=== PATIENT | male | born 1930 | race Caucasian/White ===

== ENCOUNTER 2016-12-23 12:07 | Inpatient (IN) ==
--- NOTE | 2016-12-23 12:23 | Emergency Department Note ---
Disposition Clinical Impression: Chest pain, Frail elderly, Abnormal EKG, Diabetes mellitus, Hyperlipidemia, Elevated troponin, History of atrial fibrillation, Elevated INR, Elevated blood pressure reading Disposition: Admitted As Inpatient Referrals: Garcia Herrera MD [Primary Care Provider] - General Adult HPI - General Stated complaint: chest pain Time Seen by Provider: 12/23/16 12:23 Source: patient Limitations: no limitations - History of Present Illness HPI Narrative: 86-year-old male reports to the emergency department complaining of chest pain. The pain started 2 weeks ago. The pain has been intermittent. The patient dates today he went outside to repair mechanical item and developed chest pain while exerting himself. This happened twice. There is no history of trauma. No shortness of breath. No coughing of blood leg swelling or pain. No syncope. No abdominal pain vomiting or diarrhea. No troubles walking talking hearing seeing or speaking. No confusion. No slurred speech or unilateral arm weakness or numbness. No rashes fevers or sore throat or runny nose. The patient is diabetic, he is not sure what his blood sugar levels have been. There is no history of bleeding or fall or injury. No palpitations or fast heart rate. There is no history of acute back pain or tearing back pain. There is no history of pain when breathing in and out. The pain is not associated with movement. There is no history of radiating pain to the left neck or jaw. No coldness blueness numbness or weakness in the arms or legs reported. The patient states that he takes blood thinners of some kind he is not quite sure what type. The patient went to the urgent care today, they sent him in for further evaluation. Reportedly the patient has a history of atrial fibrillation. Pain Scale: 0 - Related Data Home Medications Medication Instructions Recorded Confirmed Amiodarone 06/08/15 06/08/15 Clopidogrel Bisulfate 06/08/15 06/08/15 Finasteride 06/08/15 06/08/15 Gabapentin 06/08/15 06/08/15 Lisinopril 06/08/15 06/08/15 Metaproterenol Sulfate 06/08/15 06/08/15 Metformin 06/08/15 06/08/15 Simvastatin 06/08/15 06/08/15 TraMADol 06/08/15 06/08/15 Previous Rx's Medication Instructions Recorded Phenazopyridine [Pyridium] 100 mg PO TID #10 tablet 11/08/16 Sulfamethoxazole/Trimeth DS 1 each PO BID #20 tablet 11/08/16 [Bactrim DS] Allergies Allergy/AdvReac Type Severity Reaction Status Date / Time aspirin [ASA] Allergy Difficulty Verified 06/08/15 13:53 Breathing Penicillins [PCN] Allergy Difficulty Verified 06/08/15 13:53 Breathing All systems ED: reviewed and negative except as stated. Past Medical History - Past Medical History Medical history: Reports: cardiomyopathy, diabetes, hyperlipidemia, thyroid disease Psychiatric history: Reports: no psych history - Social History Smoking Status: Former smoker Smokeless Tobacco Status: No Alcohol use: Reports: none Drug use: Reports: none Physical Exam - General Limitations: no limitations General appearance: alert, in no apparent distress - Head Head exam: atraumatic, normocephalic, normal inspection - Eye Eye exam: Present: normal appearance, PERRL, EOMI - ENT ENT exam: normal exam, normal oropharynx, mucous membranes moist - Neck Neck exam: Present: normal inspection, full ROM, trachea midline. Absent: tenderness - Chest Chest inspection: Present: symmetric chest wall rise. Absent: tenderness - Respiratory Respiratory exam: Present: normal lung sounds bilaterally. Absent: respiratory distress, accessory muscle use, prolonged expiratory phase - Cardiovascular Cardiovascular exam: Present: regular rate, normal rhythm, normal heart sounds - Abdominal Exam Abdominal exam: Present: soft, Non-Tender, normal bowel sounds. Absent: tenderness, distention, guarding, rebound, rigidity, pulsatile mass - Extremities Exam Extremities exam: Present: normal inspection, full ROM, normal capillary refill. Absent: tenderness, pedal edema, joint swelling, calf tenderness - Expanded Lower Extremity Exam Lower leg exam: Absent: Homans' sign Neurovascular/Tendon exam: Present: normal capillary refill. Absent: pulse deficit, motor deficit, sensory deficit, tendon deficit, extremity cold to touch , pallor - Back Exam Back exam: Present: normal inspection, full ROM. Absent: tenderness, CVA tenderness (R), CVA tenderness (L), vertebral tenderness - Neurological Exam Neurological exam: Present: alert, oriented X3, CN II-XII intact. Absent: motor sensory deficit - Psychiatric Psychiatric exam: Present: normal affect, normal mood - Skin Skin exam: Present: warm, dry, intact, normal color. Absent: rash, cyanosis, diaphoresis, erythema, pallor, mottled Course Vital Signs Temperature 97.3 F L 12/23/16 12:18 Pulse Rate 65 12/23/16 12:18 Respiratory Rate 16 12/23/16 12:18 Blood Pressure 179/79 12/23/16 12:18 O2 Sat by Pulse Oximetry 99 12/23/16 12:18 Temperature 97.3 F L 12/23/16 12:18 Pulse Rate 68 12/23/16 14:21 Respiratory Rate 16 12/23/16 14:21 Blood Pressure 188/97 12/23/16 14:21 O2 Sat by Pulse Oximetry 97 12/23/16 14:21 Oxygen Delivery Oxygen Delivery Room Air Medical Decision Making - MDM Narrative Medical decision making narrative: The patient is allergic to aspirin, he does take clopidogrel. He has refused aspirin therapy. The patient reportedly has a history of atrial fibrillation, his EKG does not show significant dysrhythmia but is abnormal. The patient is elderly, has a history of diabetes, he is hypertensive, diabetic, and is reporting chest pain, and has not elevated troponin. Based on his risk factors for acute coronary syndrome in association with symptomatology and abnormal testing, I thought it be appropriate to admit the patient to the hospitalist for further evaluation. The patient is currently stable. I reviewed with the hospitalist on-call who is accepted the patient to their care. - Lab Data Result diagrams: 12/23/16 12:57 12/23/16 12:57 Lab Results 12/23/16 12/23/16 12/23/16 Range/Units 12:57 12:57 12:57 WBC (4.3-11.1) K/mcL RBC (4.19-5.50) M/mcL Hgb (12.9-16.9) g/dL Hct (37.5-50.1) % MCV (83.0-100.0) fL MCH (28.0-33.3) pg MCHC (31.6-35.5) g/dL RDW (11.5-14.5) % Plt Count (140-400) K/mcL MPV (9.4-12.4) fL Immature Gran % (0-4) % Seg Neutrophils % % Lymphocytes % % Monocytes % % Eosinophils % % Basophils % % Neutrophils # (1.6-8.9) K/mcL Lymphocytes # (0.6-4.6) K/mcL Monocytes # (0.0-1.3) K/mcL Eosinophils # (0.0-0.6) K/mcL Basophils # (0.0-0.2) K/mcL PT 16.3 H (9.4-12.1) Seconds INR 1.5 APTT 34.9 (26.0-36.0) Seconds Sodium (136-145) mEq/L Potassium (3.5-4.5) mEq/L Chloride (98-109) mEq/L Carbon Dioxide (19-29) mEq/L BUN (8-26) mg/dL Creatinine (0.72-1.25) mg/dL Est GFR ( Amer) (> 60) Est GFR (Non-Af Amer) (> 60) BUN/Creatinine Ratio (6-26) Glucose (70-99) mg/dL Calculated Osmolality (280-300) Lactic Acid 1.2 (0.5-2.2) mmol/L Calcium (8.6-10.8) mg/dL Total Bilirubin 0.5 (0.2-1.2) mg/dL Direct Bilirubin 0.2 (0.0-0.5) mg/dL Indirect Bilirubin 0.3 (0.0-1.2) mg/dL AST 14 (5-34) Units/L ALT 11 (0-55) Units/L Alkaline Phosphatase 88 (38-126) Units/L Troponin I (0-0.03) ng/mL C-Reactive Protein 1 (Less than 5) mg/L B-Natriuretic Peptide (0-100) pg/mL Serum Total Protein 7.0 (6.0-8.3) g/dL Albumin 3.6 (3.5-5.0) g/dL Globulin 3.4 (2.4-3.5) g/dL Albumin/Globulin Ratio 1.1 (1.1-2.2) Lipase 37 (8-78) Units/L 12/23/16 12/23/16 12/23/16 Range/Units 12:57 12:57 12:57 WBC 6.3 (4.3-11.1) K/mcL RBC 4.58 (4.19-5.50) M/mcL Hgb 13.6 (12.9-16.9) g/dL Hct 39.9 (37.5-50.1) % MCV 87.1 (83.0-100.0) fL MCH 29.7 (28.0-33.3) pg MCHC 34.1 (31.6-35.5) g/dL RDW 13.7 (11.5-14.5) % Plt Count 148 (140-400) K/mcL MPV 10.4 (9.4-12.4) fL Immature Gran % 0.2 (0-4) % Seg Neutrophils % 62.9 % Lymphocytes % 28.6 % Monocytes % 5.7 % Eosinophils % 2.1 % Basophils % 0.5 % Neutrophils # 4.0 (1.6-8.9) K/mcL Lymphocytes # 1.8 (0.6-4.6) K/mcL Monocytes # 0.4 (0.0-1.3) K/mcL Eosinophils # 0.1 (0.0-0.6) K/mcL Basophils # 0.0 (0.0-0.2) K/mcL PT (9.4-12.1) Seconds INR APTT (26.0-36.0) Seconds Sodium 143 (136-145) mEq/L Potassium 4.0 (3.5-4.5) mEq/L Chloride 109 (98-109) mEq/L Carbon Dioxide 26 (19-29) mEq/L BUN 18 (8-26) mg/dL Creatinine 0.85 (0.72-1.25) mg/dL Est GFR ( Amer) > 60 (> 60) Est GFR (Non-Af Amer) > 60 (> 60) BUN/Creatinine Ratio 21 (6-26) Glucose 116 H (70-99) mg/dL Calculated Osmolality 299 (280-300) Lactic Acid (0.5-2.2) mmol/L Calcium 9.9 (8.6-10.8) mg/dL Total Bilirubin (0.2-1.2) mg/dL Direct Bilirubin (0.0-0.5) mg/dL Indirect Bilirubin (0.0-1.2) mg/dL AST (5-34) Units/L ALT (0-55) Units/L Alkaline Phosphatase (38-126) Units/L Troponin I (0-0.03) ng/mL C-Reactive Protein (Less than 5) mg/L B-Natriuretic Peptide 190 H (0-100) pg/mL Serum Total Protein (6.0-8.3) g/dL Albumin (3.5-5.0) g/dL Globulin (2.4-3.5) g/dL Albumin/Globulin Ratio (1.1-2.2) Lipase (8-78) Units/L 12/23/16 Range/Units 12:57 WBC (4.3-11.1) K/mcL RBC (4.19-5.50) M/mcL Hgb (12.9-16.9) g/dL Hct (37.5-50.1) % MCV (83.0-100.0) fL MCH (28.0-33.3) pg MCHC (31.6-35.5) g/dL RDW (11.5-14.5) % Plt Count (140-400) K/mcL MPV (9.4-12.4) fL Immature Gran % (0-4) % Seg Neutrophils % % Lymphocytes % % Monocytes % % Eosinophils % % Basophils % % Neutrophils # (1.6-8.9) K/mcL Lymphocytes # (0.6-4.6) K/mcL Monocytes # (0.0-1.3) K/mcL Eosinophils # (0.0-0.6) K/mcL Basophils # (0.0-0.2) K/mcL PT (9.4-12.1) Seconds INR APTT (26.0-36.0) Seconds Sodium (136-145) mEq/L Potassium (3.5-4.5) mEq/L Chloride (98-109) mEq/L Carbon Dioxide (19-29) mEq/L BUN (8-26) mg/dL Creatinine (0.72-1.25) mg/dL Est GFR ( Amer) (> 60) Est GFR (Non-Af Amer) (> 60) BUN/Creatinine Ratio (6-26) Glucose (70-99) mg/dL Calculated Osmolality (280-300) Lactic Acid (0.5-2.2) mmol/L Calcium (8.6-10.8) mg/dL Total Bilirubin (0.2-1.2) mg/dL Direct Bilirubin (0.0-0.5) mg/dL Indirect Bilirubin (0.0-1.2) mg/dL AST (5-34) Units/L ALT (0-55) Units/L Alkaline Phosphatase (38-126) Units/L Troponin I 0.06 H* (0-0.03) ng/mL C-Reactive Protein (Less than 5) mg/L B-Natriuretic Peptide (0-100) pg/mL Serum Total Protein (6.0-8.3) g/dL Albumin (3.5-5.0) g/dL Globulin (2.4-3.5) g/dL Albumin/Globulin Ratio (1.1-2.2) Lipase (8-78) Units/L
[2016-12-23 13:05] LABS: Basophils % 0.5 %; Eosinophils # 0.1 K/mcL (0.0-0.6); Eosinophils % 2.1 %; Hematocrit 39.9 % (37.5-50.1); Hemoglobin 13.6 g/dL (12.9-16.9); Immature Granulocytes % 0.2 % (0-4); Lymphocytes # 1.8 K/mcL (0.6-4.6); Lymphocytes % 28.6 %; Mean Corpuscular HGB Conc 34.1 g/dL (31.6-35.5); Mean Corpuscular Hemoglobin 29.7 pg (28.0-33.3); Mean Corpuscular Volume 87.1 fL (83.0-100.0); Mean Platelet Volume 10.4 fL (9.4-12.4); Monocytes # 0.4 K/mcL (0.0-1.3); Monocytes % 5.7 %; Platelet Count 148 K/mcL (140-400); Red Blood Count 4.58 M/mcL (4.19-5.50); Red Cell Distribution Width 13.7 % (11.5-14.5); Segmented Neutrophils % 62.9 %
[2016-12-23 13:11] LABS: INR 1.5; Prothrombin Time 16.3 Seconds (9.4-12.1)
[2016-12-23 13:14] LABS: Activated Partial Thrombo Time 34.9 Seconds (26.0-36.0)
[2016-12-23 13:19] LABS: BUN/Creatinine Ratio 21 (6-26); Blood Urea Nitrogen 18 mg/dL (8-26); Calcium 9.9 mg/dL (8.6-10.8); Carbon Dioxide 26 mEq/L (19-29); Chloride 109 mEq/L (98-109); Glucose 116 mg/dL (70-99); Osmolality,Calculated 299 (280-300); Sodium 143 mEq/L (136-145); eGFR For African Americans > 60 (> 60); eGFR For Non-African Americans > 60 (> 60)
[2016-12-23 13:21] LABS: Albumin 3.6 g/dL (3.5-5.0); Albumin/Globulin Ratio 1.1 (1.1-2.2); Bilirubin,Direct 0.2 mg/dL (0.0-0.5); Bilirubin,Indirect 0.3 mg/dL (0.0-1.2); Bilirubin,Total 0.5 mg/dL (0.2-1.2); Globulin 3.4 g/dL (2.4-3.5)
[2016-12-23] MEDS ORDERED: Heparin 25,000 UNIT/500 ML D5W 25,000 UNIT/500 ML MLS IVC SCH (15:45)
[2016-12-23] MEDS ORDERED: Nitroglycerin 25 MG/250 ML INFUS..BTL IVC SCH (15:45)
--- NOTE | 2016-12-23 16:04 | Event Note ---
Date of Encounter: 12/23/16 Time of Encounter: 16:00 Patient seen and examined with nurse practitioner. Patient presents with anginal chest pain which she has been having signed 2 weeks ago but started according rest and waking him up from sleep. Troponin 0.06. Etiology NSTEMI type I versus hypertensive emergency. His systolic blood pressure since arrival to the ER was 180 mmHg. Start nitro drip. Start heparin drip once SBP is < 170 mmH. No heparin bolus because he takes eloquis for paroxysmal AFib. Serial troponin. Cardiology consultation.
[2016-12-23] MEDS ORDERED: Naloxone 0.4 MG/ML INJ IVP PRN (16:24)
[2016-12-23] MEDS ORDERED: *HR* HYDROcodone/Acet 5/325 mg TABLET PO PRN (16:24)
[2016-12-23] MEDS ORDERED: Ondansetron ODT 4 MG TAB.RAPDIS SL PRN (16:24)
[2016-12-23] MEDS ORDERED: Acetaminophen 325 MG TABLET PO PRN (16:24)
[2016-12-23] MEDS ORDERED: Dextrose Gel 15 GM PO PRN ×2 (16:43)
[2016-12-23] MEDS ORDERED: D5% in Water 1,000 ML IVC PRN (16:43)
[2016-12-23] MEDS ORDERED: *HR* Dextrose 50 % in Water (Syg) 50 ML SYRINGE IVP PRN (16:43)
[2016-12-23 18:23] LABS: Hemoglobin A1C 5.4 %
--- NOTE | 2016-12-23 20:01 | Internal Med History&Physical ---
Date of Encounter: 12/24/16 (Initial encounter) Time of Encounter: 15:30 Assessment and Plan (1) Chest pain Current visit: Yes Status: Acute Assess: Patient presents with chest pain that he states began two weeks ago and became progressively worse. He describes pain as centralized pressure in chest that radiates to left arm. Patient reports nitroglycerin usually helps at alleviate the pain. Plan: Trend troponins Continuous cardiac monitoring Continue Plavix Hold Eliquis IV heparin ordered IV nitroglycerin ordered Repeat EKGs ordered Cardiology consult ordered ECHO ordered O2 2L via nasal cannula ordered, titrated if SpO2 <92% SpO2 monitoring Monitor vital signs Torres catheter placement to relieve urinary retention and anxiety Qualifiers: Chest pain type: unspecified Qualified Code(s): R07.9 - Chest pain, unspecified (2) Abnormal EKG Current visit: Yes Status: Acute Assess: Patient has history of abnormal EKGs. Plan: Repeat EKGs ordered Continuous cardiac monitoring ordered Continue Plavix Hold Eliquis IV heparin ordered IV nitroglycerin ordered Cardiology consult ordered ECHO ordered O2 2L via nasal cannula ordered, titrated if SpO2 <92% SpO2 monitoring Monitor vital signs (3) Elevated troponin Current visit: Yes Status: Acute Assess: Patient presents with elevated troponins related to current chief complaint of chest pain. Plan: Trend troponins Continuous cardiac monitoring ordered Repeat EKGs ordered Monitor vital signs, including SpO2 Monitor patient for continued chest pain (4) Elevated blood pressure reading Current visit: Yes Status: Acute Assess: Patient presents with history of chronic hypertension. Plan: Lopressor ordered Continue Plavix Continue Simvastatin Continue Amiodarone Monitor vital signs Up with assist ordered due to dizziness and instability (5) History of atrial fibrillation Current visit: Yes Status: Chronic Assess: Patient presents with history of abnormal EKGs and history of atrial fibrillation. Current chief complain is chest pain with exertion. Plan: Continuous cardiac monitoring Continue Plavix Hold Eliquis IV heparin ordered IV nitroglycerin ordered Repeat EKGs ordered Cardiology consult ordered ECHO ordered O2 2L via nasal cannula ordered, titrated if SpO2 <92% SpO2 monitoring Monitor vital signs Trend troponins due to elevation early in admission (6) Diabetes mellitus Current visit: Yes Status: Chronic Assess: Patient presents with history of DM. 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 Plan: Continue Simvastatin Lipid panel ordered and within normal ranges on 12/24/16 Qualifiers: Hyperlipidemia type: unspecified Qualified Code(s): E78.5 - Hyperlipidemia , unspecified (8) DVT prophylaxis Current visit: Yes Status: Acute Assess: Patient placed on DVT protocol due to inpatient status, history of chest pain, abnormal EKGs, and cardiac symptoms. Plan: Continue aspirin therapy IV heparin ordered Up with assist ordered as tolerated due to chest pain with exertion and report of dizziness/instability Internal Medicine - H&P: HPI Chief complaint: Chest pain Admitted From: Emergency Dept Plans for Post Hospital Care: Home History of present illness: Mr. Gipson is a 86 year old male who presents from the ED with chief complain of chest pain. He states the pain started two weeks ago and became progressively worse. Pain waxes and wanes. Patient reports he went to bed at midnight and woke up at 2 a.m. because he couldn't sleep. He began to clean the filter on a humidifier when the chest pain began with exertion. Patient denies syncope but confirms SOB. Patient also reports the pain as a pressure in his chest that radiated to his left arm. Patient has a history of chest pain, abnormal EKG, atrial fibrillation, HTN, cardiomyopathy, DM, hyperlipidemia, and thyroid disease. Mr. Gipson is a former smoker. Patient also reports being treated for skin cancer on his face, and arms and hands bilaterally. Patient to be admitted as inpatient. Cardiology consult ordered and confirmed. Will continue with Plavix, trend troponins, hold Eliquis, begin nitro and heparin drip, and place patient on continuous cardiac monitoring. Past Med Surg Social Fam HX - Past Medical History Medical history: cardiomyopathy, diabetes, hyperlipidemia, thyroid disease Psychiatric history: no psych history - Past Surgical History Surgical History: no surgical history - Social History Smoking Status: Former smoker Smokeless Tobacco Status: No Alcohol use: none Drug use: none Occupational status: retired Current living situation: With Family Activity Level: Independent ambulation Recent Out of Country Travel Within the Last 8 Weeks: No Exposure or Possible Exposure to Illness During Travel: No - Family History Father Race: Family Member Ethnicity: Non- Living Status: Age at : 84 Cause of : Cancer Hx Family Cancer: Yes Mother Race: Family Member Ethnicity: Non- Living Status: Age at : 78 Cause of : Unknown Brother Race: Family Member Ethnicity: Non- Living Status: Age at : 80 Cause of : Heart disease Hx Family Cardiac Disorders: Yes Sister Race: Family Member Ethnicity: Non- Living Status: Age at : 69 Cause of : Cancer Hx Family Cancer: Yes Internal Medicine - H&P: Meds Amiodarone [Cordarone] 200 mg PO DAILY 06/08/15 [History] Clopidogrel [Plavix] 75 mg PO DAILY 06/08/15 [History] Finasteride [Proscar] 5 mg PO DAILY 06/08/15 [History] Gabapentin [Neurontin] 600 mg PO BID 06/08/15 [History] Lisinopril [Zestril] 40 mg PO DAILY 06/08/15 [History] Metaproterenol Sulfate 10 mg PO DAILY 06/08/15 [History] Metformin [Glucophage] 500 mg PO BIDWM 06/08/15 [History] Simvastatin [Zocor] 80 mg PO DAILY 06/08/15 [History] Tramadol HCl [Ultram] 50 - 100 mg PO TID 06/08/15 [History] Apixaban [Eliquis] 5 mg PO BID 12/23/16 [History] Cholecalciferol (D-3) [Vitamin D] 1,000 unit PO DAILY 12/23/16 [History] Levothyroxine [Synthroid] 75 mcg PO DAILY 12/23/16 [History] Allergies aspirin [ASA] Allergy (Verified 06/08/15 13:53) Difficulty Breathing Penicillins [PCN] Allergy (Verified 06/08/15 13:53) Difficulty Breathing All Systems PM: A 10-system review of systems was performed and is negative for pertinent findings except as documented above in the HPI. - Constitutional Constitutional: no chills, no fever(s), no night sweats - EENT Eyes: no change in vision, no discharge, no pain, no photophobia Ears: no ear discharge, no ear pain, no tinnitus Nose, mouth and throat: no dysphagia, no nasal discharge, no neck pain, no sore throat - Breasts Breasts: as per HPI - Cardiovascular Cardiovascular ROS IM: as per HPI, chest pain, dyspnea on exertion, lightheadedness - Respiratory Respiratory: as per HPI, dyspnea on exertion - Gastrointestinal Gastrointestinal: as per HPI - Genitourinary Genitourinary ROS male: as per HPI - Musculoskeletal Musculoskeletal ROS IM: no numbness, no tingling - Integumentary Integumentary IM: as per HPI, sores, unusual bruising Additional comments: Patient has sores and bruising present on arms bilaterally that he attributes to taking Xarelto. Patient also reports that he has skin cancer on his face, arms, and hands that he is being treated for. - Neurological Neurological ROS: no confusion, no convulsions, no focal weakness, no numbness, no tingling, no tremor(s) - Psychiatric Psychiatric: as per HPI - Endocrine Endocrine IM: as per HPI - Hematologic/Lymphatic Hematologic/Lymphatic: easy bleeding, easy bruising Additional comments: Patient reports easy bruising and bleeding due to taking Xarelto. Medication was changed to Apixaban. - Allergic/Immunologic Allergic/Immunologic: as per HPI - Constitutional Vitals: Temp Pulse Resp BP Pulse Ox 97.4 F L 63 16 192/80 98 12/23/16 16:56 12/23/16 16:56 12/23/16 16:56 12/23/16 16:56 12/23/16 16:56 General appearance: Present: cooperative, A&O X 3, pleasant, no acute distress, obese, answers questions appropriately - Head Head exam: Present: atraumatic, normocephalic - Eye Eye exam: Present: PERRL, conjuntiva pink, sclera anicteric Pupils: Present: PERRL - ENT ENT exam: Present: normal exam - Neck Neck exam general surgery: Present: supple, trachea midline. Absent: lymphadenopathy - Respiratory Additional comments: Patient reports SOB with exertion and during chest pain episodes. Lungs clear bilaterally in all lobes on auscultation. - Cardiovascular Cardiovascular exam: Present: RRR, +S1, +S2. Absent: diastolic murmur, gallop, rubs, systolic murmur - GI/Abdominal GI/Abdominal exam: Present: normal bowel sounds, soft, no peritoneal signs. Absent: distended, tenderness - Rectal Rectal exam: Present: deferred - exam: Present: normal inspection - Extremities Exam Extremities exam: Present: normal inspection, pedal edema, radial pulses palpable and symetrical Additional comments: Mild edema noted on lower extremities bilaterally. - Back Exam Back exam: Present: normal inspection - Neurological Exam Neurological exam: Present: CN II-XII intact, oriented X3, no focal deficits. Absent: pronater drift, facial droop, speech deficit - Psychiatric Psychiatric exam: Present: normal affect, normal mood - Skin Skin exam: Present: dry, excoriation Additional comments: Arms and hands are erythematous with bruising and excoriations. Patient states his arms and hands are treated for skin cancer diagnosis. Patient also has small , red cancerous lesions present on right side of face, back of neck and ears. Internal Med - H&P Results - Labs CBC & Chem 7: 12/24/16 01:13 12/24/16 01:13 - EKG Data EKG shows normal: sinus rhythm (Sinus rhythm with occasional supraventricular premature complexes) - EKG Data Prior EKG available for review: yes EKG comments: 12/23/16 21:08 EKG dated 03/19/15 shows sinus bradycardia with first degree AV block, right bundle branch block, and inferior and anterolateral ST-T changes possbile due to ischemia. EKG dated 12/23/16 shows sinus rhythm with occasional supraventricular premature complexes and right bundle branch block. - Diagnostic Studies Chest x-ray Additional comments: 2-View CXR of chest dated 12/23/16 shows mild aortic arch atherosclerosis. The mediastinal, cardiac, and hilar silhouettes are stable and within normal limits. Pulmonary hyperinflation with no acute consolidation or effusion. No pneumothorax or free subdiaphragmatic air. No pulmonary mass. Decreased bone mineral density with no acute abnormality. There is a subcentimeter nodular density of the right lower lateral hemithorax base which likely corresponds with a nipple shadow.
[2016-12-23] MEDS ORDERED: 0.9 % Sodium Chloride 500 ML ONE (20:24)
[2016-12-23] MEDS ORDERED: Furosemide 40 MG/4 ML VIAL IVP ONE (20:26)
[2016-12-23] MEDS ORDERED: *HR* Metoprolol 5 MG/5 ML VIAL IVP ONE ×2 (20:27→20:32)
[2016-12-23] MEDS ORDERED: Furosemide 40 MG/4 ML VIAL ONE (20:33)
[2016-12-23] MEDS ORDERED: *HR* Morphine 2 MG/ML SYRINGE ONE (20:33)
--- NOTE | 2016-12-23 21:17 | Cardiology Consult Note ---
Date of Encounter: 12/23/16 Time of Encounter: 21:14 Assessment and Plan Discussion w patient/family: The assessment and plan as outlined above was discussed with the patient and/or family members who expressed understanding and agreement. All questions were answered. Thank you for involving us in the care of your patient. Please call with any questions. Plan in Brief: 1. Chest pain - trend trops. Usual MO type care - Nitro and morphine reasonable. May need ischemic work up depending on sxs. 2. Afib with RVR - worse tonight due to issiues - suspect once he urinates his HR will be better. If this persists --Dilt gtt would be reasonable. 3. HTN - worse due to acute pain. Nitro and Dilt gtt PRN 4. Urinary retention - per IM 5. Chronic A/c - given concerns over Torres - heparin has been stopped - Will need to watch H/h closely with Eliquis and plavix on board. History of Present Illness Consult date: 12/23/16 Consult reason: chest pain Chief complaint: same History of present illness: Mr. Gipson is a 86 year old male with known CAD, h/o of Afib on A/c presents with a few week history of anginal type chest pain, inclundig earlier today. After presentation to the ER - he was noted to have a slight increase in Trop - and Cardio consult requested. Tonight - patient was seen - and unable t get much history - due to the patient' s focus being directed toward his inability to urinate. He has been having urinary issues for at least a few hours - Torres placement was unsuccessful. IN the midst of this urinary discomfort he did have more chest pain - but resolved while I was at bedside. He has develped Afib with RVR - since having pain and there is some concern over urethral trauma. Past Med Surg Social Fam HX - Past Medical History Medical history: cardiomyopathy, diabetes, hyperlipidemia, thyroid disease Psychiatric history: no psych history - Past Surgical History Surgical History: no surgical history - Social History Smoking Status: Former smoker Smokeless Tobacco Status: No Alcohol use: none Drug use: none - Family History Father Race: Family Member Ethnicity: Non- Living Status: Age at : 84 Cause of : Cancer Hx Family Cancer: Yes Mother Race: Family Member Ethnicity: Non- Living Status: Age at : 78 Cause of : Unknown Brother Race: Family Member Ethnicity: Non- Living Status: Age at : 80 Cause of : Heart disease Hx Family Cardiac Disorders: Yes Sister Race: Family Member Ethnicity: Non- Living Status: Age at : 69 Cause of : Cancer Hx Family Cancer: Yes Medications and Allergies Amiodarone [Cordarone] 200 mg PO DAILY 06/08/15 [History] Clopidogrel [Plavix] 75 mg PO DAILY 06/08/15 [History] Finasteride [Proscar] 5 mg PO DAILY 06/08/15 [History] Gabapentin [Neurontin] 600 mg PO BID 06/08/15 [History] Lisinopril [Zestril] 40 mg PO DAILY 06/08/15 [History] Metaproterenol Sulfate 10 mg PO DAILY 06/08/15 [History] Metformin [Glucophage] 500 mg PO BIDWM 06/08/15 [History] Simvastatin [Zocor] 80 mg PO DAILY 06/08/15 [History] Tramadol HCl [Ultram] 50 - 100 mg PO TID 06/08/15 [History] Apixaban [Eliquis] 5 mg PO BID 12/23/16 [History] Cholecalciferol (D-3) [Vitamin D] 1,000 unit PO DAILY 12/23/16 [History] Levothyroxine [Synthroid] 75 mcg PO DAILY 12/23/16 [History] Allergies aspirin [ASA] Allergy (Verified 06/08/15 13:53) Difficulty Breathing Penicillins [PCN] Allergy (Verified 06/08/15 13:53) Difficulty Breathing All Systems Review: A 10-system review of systems was performed and is negative for pertinent findings except as documented above in the HPI. - Cardiovascular Cardiovascular: chest pain at rest - Genitourinary Genitourinary: other (urinary retention) Physical Examination Vital Signs, Last 4 Hours Temp Pulse Resp BP Pulse Ox 12/23/16 19:35 97.4 F L 81 22 173/128 98 General: Conversant, Other (uncmfortable appearing ) HEENT: Atraumatic, Normocephaly Neck: No JVD Cardiac: Other (tachy and irregular) Lungs: Normal Breath Sounds, No Wheeze, Rales, Rhonchi Neuro: Alert and responsive, No focal deficits noted Abdomen: Soft, Non-Tender Skin: No rashes noted on visualized skin Musculoskeletal: No Chest Wall Tenderness Extremities: No Clubbing, No Cyanosis Results 12/23/16 12:57 12/23/16 12:57 - EKG Interpretation EKG results cardiology: personally reviewed (Afib with RVR, NSST changes) Consult Discharge Plan - Plan
--- NOTE | 2016-12-23 21:18 | Urology - Consult Note ---
Date of Encounter: 12/23/16 Time of Encounter: 21:16 Urology CN:HPI Consult date: 12/23/16 Reason for consult Urology: Difficult Torres Requesting physician: Conrado Williamson History of present illness: Conor is an 86-year-old male well known to me for urinary urgency and incontinence. The patient is currently on finasteride for prostate problems. Patient was admitted to the hospital secondary to chest pain. He was found to have an inability to empty his bladder and multiple attempts of catheters were attempted but were unsuccessful. Past Med Surg Social Fam HX - Past Medical History Medical history: cardiomyopathy, diabetes, hyperlipidemia, thyroid disease Psychiatric history: no psych history - Past Surgical History Surgical History: no surgical history - Social History Smoking Status: Former smoker Smokeless Tobacco Status: No Alcohol use: none Drug use: none - Family History Father Race: Family Member Ethnicity: Non- Living Status: Age at : 84 Cause of : Cancer Hx Family Cancer: Yes Mother Race: Family Member Ethnicity: Non- Living Status: Age at : 78 Cause of : Unknown Brother Race: Family Member Ethnicity: Non- Living Status: Age at : 80 Cause of : Heart disease Hx Family Cardiac Disorders: Yes Sister Race: Family Member Ethnicity: Non- Living Status: Age at : 69 Cause of : Cancer Hx Family Cancer: Yes Medications and Allergies Amiodarone [Cordarone] 200 mg PO DAILY 06/08/15 [History] Clopidogrel [Plavix] 75 mg PO DAILY 06/08/15 [History] Finasteride [Proscar] 5 mg PO DAILY 06/08/15 [History] Gabapentin [Neurontin] 600 mg PO BID 06/08/15 [History] Lisinopril [Zestril] 40 mg PO DAILY 06/08/15 [History] Metaproterenol Sulfate 10 mg PO DAILY 06/08/15 [History] Metformin [Glucophage] 500 mg PO BIDWM 06/08/15 [History] Simvastatin [Zocor] 80 mg PO DAILY 06/08/15 [History] Tramadol HCl [Ultram] 50 - 100 mg PO TID 06/08/15 [History] Apixaban [Eliquis] 5 mg PO BID 12/23/16 [History] Cholecalciferol (D-3) [Vitamin D] 1,000 unit PO DAILY 12/23/16 [History] Levothyroxine [Synthroid] 75 mcg PO DAILY 12/23/16 [History] Allergies aspirin [ASA] Allergy (Verified 06/08/15 13:53) Difficulty Breathing Penicillins [PCN] Allergy (Verified 06/08/15 13:53) Difficulty Breathing Review of Systems - Constitutional no chills - EENT Nose, mouth and throat: no dizziness - Cardiovascular chest pain - Respiratory no cough - Gastrointestinal abdominal pain (Suprapubic tenderness) - Musculoskeletal no back pain - Integumentary no erythema - Neurological no confusion Exam Initial Vital Signs Temp Pulse Resp BP Pulse Ox 97.3 F L 65 16 179/79 99 12/23/16 12:18 12/23/16 12:18 12/23/16 12:18 12/23/16 12:18 12/23/16 12:18 - General physical appearance Present: well developed - Eyes Present: PERRL - ENT Present: normal nares - Neck Present: no masses - Respiratory Present: normal respiratory effort - Cardiovascular Cardiovascular exam IM: RRR - Abdomen Abdomen: Present: soft - Genitourinary other (Tender tip of penis) Urology Results - Labs 12/23/16 12:57 12/23/16 12:57 Abnormal lab results PT 16.3 Seconds (9.4-12.1) H 12/23/16 12:57 Glucose 116 mg/dL (70-99) H 12/23/16 12:57 POC Glucose 156 (58-89) H 12/23/16 17:02 Troponin I 0.06 ng/mL (0-0.03) H* 12/23/16 12:57 B-Natriuretic Peptide 190 pg/mL (0-100) H 12/23/16 12:57 Diabetes panel 12/23/16 Range/Units Unknown Hemoglobin A1c 5.4 ( - 5.6) % All other labs normal. Consult Discharge Plan - Plan Referrals: Garcia Herrera MD [Primary Care Provider] -
--- NOTE | 2016-12-23 21:19 | Event Note ---
Date of Encounter: 12/23/16 Time of Encounter: 21:18 Please attach this to the consult note that was written. I was unable to access the assessment and plan area to enter data. Assessment #1 urinary retention patient has a history of urinary retention we will continue with finasteride and add Flomax. Patient was prepped and draped in normal sterile fashion. 18-Japanese Coude catheter was placed with a significant amount of resistance at the prostate. 800 mL's of clear urine was returned. Okay for the patient to be on heparin drip if desired by primary team
[2016-12-23] MEDS: Gabapentin 300 MG CAPSULE PO SCH (23:08)
[2016-12-23] MEDS: Insulin LISPRO 300 UNITS/3 ML VIAL SQ SCH (23:19)
[2016-12-24 01:23] LABS: Basophils % 0.4 %; Eosinophils # 0.2 K/mcL (0.0-0.6); Eosinophils % 1.6 %; Hematocrit 39.6 % (37.5-50.1); Hemoglobin 13.5 g/dL (12.9-16.9); Immature Granulocytes % 0.2 % (0-4); Lymphocytes # 2.6 K/mcL (0.6-4.6); Lymphocytes % 24.8 %; Mean Corpuscular HGB Conc 34.1 g/dL (31.6-35.5); Mean Corpuscular Hemoglobin 29.7 pg (28.0-33.3); Mean Corpuscular Volume 87.2 fL (83.0-100.0); Mean Platelet Volume 10.3 fL (9.4-12.4); Monocytes # 0.8 K/mcL (0.0-1.3); Monocytes % 7.5 %; Neutrophils # 6.9 K/mcL (1.6-8.9); Platelet Count 145 K/mcL (140-400); Red Blood Count 4.54 M/mcL (4.19-5.50); Red Cell Distribution Width 13.9 % (11.5-14.5); Segmented Neutrophils % 65.5 %
[2016-12-24 01:41] LABS: Alanine Aminotransferase 12 Units/L (0-55); Albumin 3.5 g/dL (3.5-5.0); Albumin/Globulin Ratio 1.1 (1.1-2.2); Alkaline Phosphatase 78 Units/L (38-126); Aspartate Amino Transferase 24 Units/L (5-34); BUN/Creatinine Ratio 17 (6-26); Bilirubin,Total 0.5 mg/dL (0.2-1.2); Blood Urea Nitrogen 22 mg/dL (8-26); Calcium 9.3 mg/dL (8.6-10.8); Carbon Dioxide 26 mEq/L (19-29); Chloride 107 mEq/L (98-109); Chol/HDL Ratio 3.1 (0-4.9); Cholesterol 130 mg/dL (< 200); Globulin 3.1 g/dL (2.4-3.5); Glucose 124 mg/dL (70-99); HDL Cholesterol 42 mg/dL (40-59); LDL Cholesterol,Calculated 66 mg/dL (0-99); Magnesium 1.9 mg/dL (1.6-2.6); Osmolality,Calculated 299 (280-300); Potassium 3.5 mEq/L (3.5-4.5); Sodium 142 mEq/L (136-145); Total Protein 6.6 g/dL (6.0-8.3); Triglycerides 109 mg/dL (< 150); eGFR For African Americans > 60 (> 60); eGFR For Non-African Americans 55 (> 60)
[2016-12-24] MEDS ORDERED: *HR* Heparin 5,000 UNIT/ML VIAL IVP ONE (04:12)
[2016-12-24] MEDS ORDERED: *HR* Heparin 5,000 UNIT/ML VIAL IVP PRN ×2 (04:12)
[2016-12-24] MEDS: Heparin 25,000 UNIT/500 ML D5W 25,000 UNIT/500 ML MLS IVC SCH (05:02)
--- NOTE | 2016-12-24 08:07 | Urology Progress Note ---
Date of Encounter: 12/24/16 Time of Encounter: 08:05 - Assessment and Plan (1) Urinary retention due to benign prostatic hyperplasia Current Visit: Yes Status: Acute Assessment and plan: contiue cath for one week. added flomax. Progress Note Narrative: Conor is 86 y/o male with history of urinary retention. patient doing much better with cath. Objective Initial Vital Signs Temp Pulse Resp BP Pulse Ox 97.3 F L 65 16 179/79 99 12/23/16 12:18 12/23/16 12:18 12/23/16 12:18 12/23/16 12:18 12/23/16 12:18 - Abdomen Present: soft - Genitourinary Present: other (urine clear) - Labs 12/24/16 01:13 12/24/16 01:13 Diabetes panel 12/23/16 12/24/16 Range/Units Unknown 01:13 Sodium 142 (136-145) mEq/L Potassium 3.5 (3.5-4.5) mEq/L Chloride 107 (98-109) mEq/L Carbon Dioxide 26 (19-29) mEq/L BUN 22 (8-26) mg/dL Creatinine 1.26 H (0.72-1.25) mg/dL Glucose 124 H (70-99) mg/dL Hemoglobin A1c 5.4 ( - 5.6) % Calcium 9.3 (8.6-10.8) mg/dL AST 24 (5-34) Units/L ALT 12 (0-55) Units/L Alkaline Phosphatase 78 (38-126) Units/L Albumin 3.5 (3.5-5.0) g/dL Triglycerides 109 (< 150) mg/dL HDL Cholesterol 42 (40-59) mg/dL Calcium panel 12/24/16 Range/Units 01:13 Calcium 9.3 (8.6-10.8) mg/dL Albumin 3.5 (3.5-5.0) g/dL Pituitary panel 12/24/16 Range/Units 01:13 Sodium 142 (136-145) mEq/L Potassium 3.5 (3.5-4.5) mEq/L Chloride 107 (98-109) mEq/L Carbon Dioxide 26 (19-29) mEq/L BUN 22 (8-26) mg/dL Creatinine 1.26 H (0.72-1.25) mg/dL Glucose 124 H (70-99) mg/dL Calcium 9.3 (8.6-10.8) mg/dL Adrenal panel 12/24/16 Range/Units 01:13 Sodium 142 (136-145) mEq/L Potassium 3.5 (3.5-4.5) mEq/L Chloride 107 (98-109) mEq/L Carbon Dioxide 26 (19-29) mEq/L BUN 22 (8-26) mg/dL Creatinine 1.26 H (0.72-1.25) mg/dL Glucose 124 H (70-99) mg/dL Calcium 9.3 (8.6-10.8) mg/dL Total Bilirubin 0.5 (0.2-1.2) mg/dL AST 24 (5-34) Units/L ALT 12 (0-55) Units/L Alkaline Phosphatase 78 (38-126) Units/L Albumin 3.5 (3.5-5.0) g/dL - VTE Documentation of Mechanical Device: Intermittent pneumatic compression device Consult Discharge Plan - Plan Referrals: Garcia Herrera MD [Primary Care Provider] -
[2016-12-24 08:12] LABS: INR 1.3; Prothrombin Time 13.8 Seconds (9.4-12.1)
[2016-12-24 08:17] LABS: Activated Partial Thrombo Time 76.5 Seconds (26.0-36.0)
[2016-12-24] MEDS: Insulin LISPRO 300 UNITS/3 ML VIAL SQ SCH ×4 (09:16→19:39)
[2016-12-24] MEDS: Cholecalciferol (D-3) 1,000 UNIT TABLET PO SCH (09:17)
[2016-12-24] MEDS: Gabapentin 300 MG CAPSULE PO SCH ×2 (09:17→19:39)
[2016-12-24] MEDS: Finasteride 5 MG TABLET PO SCH (09:17)
[2016-12-24] MEDS: Lisinopril 20 MG TABLET PO SCH (09:17)
[2016-12-24] MEDS: *HR* Amiodarone 200 MG TABLET PO SCH (09:17)
[2016-12-24] MEDS: [UNRECOGNIZED DRUG - OTHER] PO SCH (09:17)
--- NOTE | 2016-12-24 09:57 | Pre-Sedation Evaluation ---
Pre-sedation evaluation - Pre-sedation checklist Date of procedure: 12/24/16 Procedure: [facility] Recent Vitals: Last Vital Signs Temp 98.1 F 12/24/16 06:38 Pulse 69 12/24/16 06:38 Resp 16 12/24/16 06:38 BP 139/73 12/24/16 06:38 Pulse Ox 94 12/24/16 06:38 H&P (including ROS) documented in medical record: Yes Previous reaction to sedatives/anesthetics: No Dietary Status: NPO after Midnight Airway Assessment: Patient can open mouth completely, TMJ function normal ASA Classification *see protocol: CLASS II-Mild systemic disease Plan of Care: Pt appropriate candidate for procedure/moderate/conscious sedation , Risks/benefits of procedure/sedation discussed w/ patient/family
--- NOTE | 2016-12-24 10:00 | Event Note ---
Date of Encounter: 12/24/16 Time of Encounter: 09:58 - Cardiology Event Note Patient noted to have an increase in Troponin overnight. Mentioned some recurrent chest pain - even after urinary retention was corrected Based on the above - Angio seems reasonable. Patient eage rto be d/c'd as soon as it is safe. As such Risks/benefits/rationale and alternatives to Angio were discussed. Patient is agreeable. He has been NPO - Dr. Beard is aware.
[2016-12-24] MEDS ORDERED: Verapamil 5 MG/2 ML VIAL ONE (11:25)
[2016-12-24] MEDS ORDERED: *HR* Heparin 10,000 UNIT/10 ML VIAL ONE (11:26)
[2016-12-24] MEDS ORDERED: 0.9 % Sodium Chloride 1,000 ML ONE ×2 (11:26→11:50)
[2016-12-24] MEDS ORDERED: Heparin 1,000 UNITS/500 mL NS 500 ML ONE (11:26)
[2016-12-24] MEDS ORDERED: Nitroglycerin 1,000 MCG/10 ML VIAL IV ONE (11:26)
[2016-12-24] MEDS ORDERED: *HR* Midazolam HCl 2 MG/2 ML VIAL ONE (11:49)
[2016-12-24] MEDS ORDERED: *HR* FentaNYL (PF) 100 MCG/2 ML VIAL ONE (11:50)
[2016-12-24] MEDS ORDERED: Ondansetron 4 MG/2 ML VIAL IVP PRN (12:26)
[2016-12-24] MEDS ORDERED: *HR* Ticagrelor 90 MG TABLET ONE (12:31)
[2016-12-24] MEDS ORDERED: *HR* Morphine 2 MG/ML SYRINGE IVP PRN (12:31)
--- NOTE | 2016-12-24 12:47 | Invasive Diagnostic Lab Proc ---
Name: Conor Gipson Date of Study: 12/24/2016 Date: 1930 Ht: 72.8in Medical Record#: [id number] Age: 86 Wt: 209.44lb Gender: Male BSA: 2.19 Order #: [id number] BMI: 27.76 Physicians Procedure Physician: Cody Beard MD, [facility] Referring MD: Referring MD: Staff Name Position Time In Mar Casas RN Monitor 12:04 PM Tatiana Koroma RN Magnaflux Operator 12:04 PM Aniya Vernon RN Magnaflux Operator 12:04 PM Anjelica Agarwal RT (R) Scrub 12:04 PM Indications Indication Non-Stemi Procedures Performed Procedure L HRT ARTERY/VENTRICLE ANGIO Pre-Procedure Checklist Informed consent is complete signed and on chart. H\\T\\P is on chart. ID band is on and ID verified with patient. Patient NPO for procedure The procedure was described for the patient and questions were answered. Blood Pressure: 139/73 ECG is on chart. Plan of Care Patient will tolerate the procedure without complications. Adequate level of comfort will be maintained. Hemodynamics will remain stable Patient will recover from procedure without complications. Respiratory function will be maintained. Cardiac rhythm will remain stable. Patient temperature will be maintained. Patient and/or family have verbalized understanding of the procedure. Patient Education Chief Complaint/Reason for Test: Cardiac Cath Developmental Category: Geriatric (65+ years) Developmentally Appropriate for Age: Yes Learning Barriers: None Education Needs: Procedure Education Method: Verbal Information Taught: Cardiac Cath Educational Evaluation: Able to repeat information Intravenous Access Time IV Size Location DC'd Fluid/Drip Rate Units RN 11:30 AM 18g 1 09/06" Patent On Arrival Rt Antecubital 0.9NaCl ml/hr Mar Casas RN Allergies Penicillin aspirin Vital Signs Time BP (mmHg) HR (bpm) O2 Sat. RR (bpm) LOC 139 / 73 69 94 % 16 5 = Fully awake and oriented or at pre-proc level 12:03 PM / % 5 = Fully awake and oriented or at pre-proc level 12:03 PM / % 4 = Oriented but drowsy 11:58 AM 155 / 58 53 96 % 17 12:03 PM 156 / 59 66 91 % 13 12:08 PM 100 / 36 55 90 % 19 12:13 PM 113 / 63 55 96 % 17 12:18 PM 143 / 55 56 97 % 15 12:18 PM / % 4 = Oriented but drowsy Procedural Medications Time Medication Dose Units Method Given By 12:03 PM Oxygen 2 L/min nasal cannula Tatiana Koroma RN 12:05 PM Lidocaine 2% 0.5 ml Subcutaneous Cody Beard MD, [facility] 12:07 PM Oxygen 3 L/min nasal cannula Tatiana Koroma RN 12:04 PM Versed 2 mg Intravenous Tatiana Kormoa RN 12:04 PM Fentanyl 50 mcg Intravenous Tatiana Koroma RN 12:31 PM Brilinta 180 mg Orally Tatiana Koroma RN ASA Classification: CLASS II- Mild systemic disease (i.e. well-controlled diabetes, hypertension, asthma, cigarette smoking) Deana Score Preprocedure Postprocedure Activity 2- Moves 4 extremities sustained head lift Activity 2- Moves 4 extremities sustained head lift Circulation 2- SBP +/= 20 points of pre-anesthetic level Circulation 2- SBP +/= 20 points of pre-anesthetic level Consciousness 2- Awake and alert oriented x 3 Consciousness 2- Awake and alert oriented x 3 O2 Saturation 2- Able to maintain O2 satruation of 92% on room air O2 Saturation 2- Able to maintain O2 satruation of 92% on room air Respiratory 2- Able to deep breathe and cough well Respiratory 2- Able to deep breathe and cough well Total Score 10 Total Score 10 Contrast Agent: Isovue Diagnostic Contrast: 57 ml Total Contrast: 57 ml Fluoro Dose: 247 mGy Procedure Log Time Note Enter By 11:55 AM CathStat 11:57 AM Vitals capture started with the following parameters, Patient=Adult, Interval=5 min, Initial Loyaumpl=140 mmHg, Deflation Rate=5 mmHg, Cuff placed on Left Arm 11:58 AM HR=53 bpm, TNSG=419/58 mmhg, SpO2=96.0 %, Resp=17 B/min, Comment=sb 12:03 PM HR=66 bpm, MBFW=864/59 mmhg, SpO2=91.0 %, Resp=13 B/min, Comment=sb 12:03 PM Pt arrived to candlemaking laborer 2 at 12:03 scoates 12:03 PM Physician arrived 12:03 scoates 12:03 PM ASA Class CLASS II- Mild systemic disease (i.e. well-controlled diabetes, hypertension, asthma, cigarette smoking) scoates 12:03 PM Meet and greet completed scoates 12:03 PM Sign in performed according to hospital policy. scoates 12:03 PM Procedure start 12:03 scoates 12:03 PM Time: 12:03 Oxygen on at 2 L/min per nasal cannula by Tatiana Koroma RN scoates 12:03 PM Time: 12:03 Patient comfortable and pain free: Yes scoates 12:03 PM Time: 12:03LOC: 5 = Fully awake and oriented or at pre-proc level scoates 12:04 PM Mar Casas RN Position: Monitor Time in: 12:04 scoates 12:04 PM Tatiana Koroma RN Position: Magnaflux Operator Time in: 12:04 scoates 12:04 PM Aniya Vernon RN Position: Magnaflux Operator Time in: 12:04 scoates 12:04 PM Anjelica Agarwal RT (R) Position: Scrub Time in: 12:04 scoates 12:04 PM Time: 12:08 Versed 2 mg Intravenous Given by Tatiana Koroma RN scoates 12:04 PM Patient charges- Angio tray pack, Navilyst 3mm J, Pulse Oximetry and ACIST tubing and transducer scoates 12:04 PM Time: 12:08 Fentanyl 50 mcg Intravenous Given by Tatiana Koroma RN scoates 12:04 PM Case Delayed no scoates 12:05 PM Hair removed from procedure site in procedure lab using clippers. Right wrist and rt groin prepped with Chloraprep by Mar Casas RN, safety strap applied then patient was draped. Skin intact. scoates 12:05 PM Clinical Presentation: Non-STEMI scoates 12:05 PM Time out performed according to hospital policy scoates 12:05 PM Time: 12:05 0.5 ml Lidocaine 2% to right radial Subcutaneous Given by Cody Beard MD, [facility] scoates 12:06 PM Access obtained by percutaneous puncture. 6Fr 11cm Terumo Glidesheath sheath placed in right Radial artery. [id number] scoates 12:06 PM Pressure channel 1 zeroed. 12:07 PM Time: 12:07 Oxygen on at 3 L/min per nasal cannula by Tatiana Koroma RN scoates 12:07 PM 5Fr FR4 catheter inserted over the wire [id number] scoates 12:07 PM RCA angiography performed in multiple views. scoates 12:07 PM Coronary Dominance: right scoates 12:07 PM Recorded Pressure: Ao, HR=57, Condition=Condition 1 (Aorta) Ao 90/63/75 12:08 PM HR=55 bpm, NYFO=820/36 mmhg, SpO2=90.0 %, Resp=19 B/min, Comment=sb 12:10 PM Catheter removed scoates 12:10 PM 5Fr FL3.5 catheter inserted over the wire [id number] scoates 12:10 PM Recorded Pressure: Ao, HR=58, Condition=Condition 1 (Aorta) Ao 105/61/83 12:11 PM LCA angiography performed in multiple views. scoates 12:12 PM Catheter removed scoates 12:13 PM HR=55 bpm, LQBW=909/63 mmhg, SpO2=96.0 %, Resp=17 B/min, Comment=sb 12:13 PM 5Fr Pigtail catheter inserted over the wire [facility] scoates 12:13 PM Catheter selectively placed in left ventricle scoates 12:14 PM Pressure channel 1 zero failed. 12:14 PM Pressure channel 1 zeroed. 12:14 PM Recorded Pressure: LV, HR=55, Condition=Condition 1 (Left Ventricle) LV 124/11/19 12:15 PM Bolus angiogram of left Ventricle complete: 9 ml/sec for a total of 25 mls scoates 12:15 PM Recorded Pressure: LV, Ao, HR=59, Condition=Condition 1 (Left Ventricle) LV 117/48/30, (Aorta) Ao 116/49/76 12:17 PM Lesion found in Distal RCA. Pre Stenosis: 99 Pre ESTHELA Flow: scoates 12:17 PM Lesion found in Proximal LAD. Pre Stenosis: 50 Pre ESTHELA Flow: scoates 12:17 PM Lesion found in 1st Diagonal. Pre Stenosis: 95 Pre ESTHELA Flow: scoates 12:17 PM Lesion found in Distal Circumflex. Pre Stenosis: 50 Pre ESTHELA Flow: scoates 12:18 PM HR=56 bpm, KHUC=309/55 mmhg, SpO2=97.0 %, Resp=15 B/min, Comment=sb 12:18 PM Time: 12:03LOC: 4 = Oriented but drowsy scoates 12:18 PM Time: 12:03 Patient comfortable and pain free: Yes scoates 12:20 PM Procedure completed at 12:20 scoates 12:21 PM Sign out completed: Radiation Dose 247 mGy Fluoro Time: 3.4 Isovue 370 - 200ml contrast 57 ml given by Cody Beard MD, FACC. Complications: NoneCardiac Rehab Consult needed: YesConfirmed administered medications: Yes scoates 12:21 PM Isovue 370 - 500ml,1 Bottle(s) used. scoates 12:21 PM Arterial sheath pulled, Vasc Band closure device used and was Successful S/N. scoates 12:21 PM 12 ml air in Vasc Band. scoates 12:21 PM Post ECG Sinus Bradycardia scoates 12:21 PM Post Blood Pressure 143/55 scoates 12:21 PM 12:21 Post Pulses Rt Radial 1+ scoates 12:23 PM Vitals capture stopped. 12:26 PM Information taught Cardiac Cath and Vasc Band scoates 12:26 PM Education needs Procedure, Plan of Care, and Responsibilities of Patient in Care scoates 12:26 PM Learning barriers :None scoates 12:26 PM Education Methods Verbal scoates 12:26 PM Education evaluation Able to repeat information scoates 12:26 PM Site status No bleeding/hematoma - Rt Wrist as reported by Anjelica Agarwal RT (R) at 12:26 scoates 12:26 PM Delay to floor No scoates 12:27 PM Complications: None scoates 12:27 PM Fluoro Time: 3.4 scoates 12:27 PM Isovue 370 - 200ml contrast 57 ml given by Cody Beard MD, FACC. scoates 12:27 PM Radiation Dose 247 mGy scoates 12:31 PM Time: 12:31 Brilinta 180 mg Orally Given by Tatiana Koroma RN scoates 12:33 PM Time: 12:18 Patient comfortable and pain free: Yes scoates 12:34 PM Time: 12:18LOC: 4 = Oriented but drowsy scoates 12:37 PM called and talked to Patients on telephone and notified her of patients bed change scoates 12:38 PM Report given to Pippa BROWN Pt taken to ICU Room #8. 12:38 scoates 12:38 PM Plavix, Effient or Brilinta given Yes scoates 12:38 PM Delay to floor No scoates 12:38 PM Patient out of room: 12:38 scoates 12:38 PM Complications: None scoates Complications Complication None None None Hemodynamics Pressures Site Systolic/A Wave Diastolic/V Wave Mean AO 90 63 75 AO 105 61 83 LV 124 11 19 LV 117 48 30 AO 116 49 76 Post Procedure Information Blood Pressure: 143/55 mmHg Rhythm: Sinus Bradycardia Post procedural instructions were given Closure Device Time Device Success/Fail 12/24/2016 12:22:00 PM Mechanical Compression Successful Site Checks Time Location Status Staff Sheath In? Note 12:26 PM Rt Wrist No bleeding/hematoma Anjelica Agarwal RT (R) Pulses Time Site Pre-Procedure Post-Procedure Note Bilateral DP \\T\\ PT 2+ Bilateral radial 2+ 12:21:00 PM Rt Radial 1+ Updated by Mar Ordaz RN on 12/24/2016 12:40:31 PM electronically signed on 12/24/2016 12:41:10 PM with status of Final
--- NOTE | 2016-12-24 12:50 | Invasive Diagnostic Lab ---
Name: Conor Gipson Date of Study: 12/24/2016 Date: 1930 Ht: 185.0 cm /72.8 in Medical Record#: [id number] Age: 86 Wt: 95. kg / 209.44 lb Account/Order#: [id number] Gender: Male BSA: 2.19 Order #: [id number] Fluoro Dose: 247 mGy BMI: 27.76 Procedure Physician: Cody Beard MD, FACC Referring MD: Referring MD: Procedures Performed: LEFT HEART CATH Indications: Non-Stemi on NTG drip Impressions: There is severe one vessel coronary artery disease. The left ventricle is normal and has normal contractility EF 65% Aspirin allergy Recommendations: Optimal medical therapy of patient's disease. Aggressive risk factor modification. Patient recommended for urgent PCI of distal RCA after Aspirin desensitization. Change to brilinta overnight, continue heparin and NTG drip History/Risk Factors: CP Cardiomyopathy urinary retention A-fib RVR SOB Diabetes Hypertension Dyslipidemia Procedure Access obtained in the right Radial artery by percutaneous puncture Complications: None, None, None Contrast: Isovue 57ml Closure Device: Mechanical Compression Hemodynamics: Pressures Site Systolic/ A Wave Diastolic/ V Wave End Diastolic/ Mean HR AO 90 63 75 57 AO 105 61 83 58 LV 124 11 19 55 LV 117 48 30 48 AO 116 49 76 67 LV Ventriculography Ejection Method: LV Gram Ejection Fraction: 65% Wall Motion: ALCAZAR Anterobasal Normal Anterolateral Normal Apical: Normal Inferoapical Normal Inferobasal Normal Coronary Dominance: right Lesion Findings/Interventions * Left Main Coronary Artery The LMCA is angiographically free of disease. * Left Anterior Descending There is a 40-50% stenosis in the Ostial-Proximal LAD. There is a 90% stenosis in the 1st Diagonal. There is a long mid 50-60% stenosis * Circumflex There is a 50% stenosis in the Distal Circumflex. * Right Coronary Artery There is a 99% stenosis in the Distal RCA. The lesion has thrombus present. Lesion arises just before the PLB/PDA bifurcation with ESTHELA 2 flow. Proximal RCA has 60% stenosis and has a cespedes's crook tortuosity. Updated by Mar Ordaz RN on 12/24/2016 12:39:57 PM Cody Beard MD, FACC electronically signed on 12/24/2016 12:45:52 PM with status of Final
[2016-12-24] MEDS: 0.9 % Sodium Chloride 1,000 ML IVC SCH ×2 (13:08→19:38)
[2016-12-24] MEDS ORDERED: EPINEPHRINE 0.15 MG/0.3 ML IM PRN (15:52)
--- NOTE | 2016-12-24 16:48 | Internal Med Progress Note ---
Date of Encounter: 12/24/16 Time of Encounter: 14:00 - Assessment and plan (1) NSTEMI (non-ST elevation myocardial infarction) Current Visit: Yes Status: Acute Assessment and plan: Appreciate cardiac evaluation. To have cardiac cath today. (2) Diabetes mellitus Current Visit: Yes Status: Chronic Assessment and plan: Continue to hold metformin. Insulin coverage ordered. Qualifiers: Diabetes mellitus type: type 2 Diabetes mellitus complication status: with hyperglycemia Diabetes mellitus snf insulin use: without snf use Qualified Code(s): E11.65 - Type 2 diabetes mellitus with hyperglycemia (3) Hyperlipidemia Current Visit: Yes Status: Chronic Assessment and plan: Continue statin. Qualifiers: Hyperlipidemia type: mixed hyperlipidemia Qualified Code(s): E78.2 - Mixed hyperlipidemia (4) Urinary retention due to benign prostatic hyperplasia Current Visit: Yes Status: Acute Assessment and plan: Per urology. Torres in place. (5) Hypothyroid Current Visit: Yes Status: Acute Qualifiers: Hypothyroidism type: acquired Qualified Code(s): E03.9 - Hypothyroidism, unspecified - Subjective Interval history: Mr. Gipson is currently admitted for chest pain and troponins consistent with NSTEMI. He is high risk due to potential for worsening cardiac status. Mr. Gipson has no chest pain now. No dyspnea. He is to go to cardiac cath. He denies GI symptoms. Torres is working OK. He says he was very embarassed by situation last night. - Constitutional Vitals: Temp Pulse Resp BP Pulse Ox 97.7 F 51 14 146/73 99 12/24/16 15:23 12/24/16 16:00 12/24/16 16:00 12/24/16 16:00 12/24/16 16:00 General appearance: Present: cooperative, A&O X 3, pleasant, obese, answers questions appropriately - Head Head exam: Present: normocephalic - Eye Eye exam: Present: conjuntiva pink - ENT ENT exam: Present: mucous membranes dry - Respiratory Respiratory exam: Present: decreased breath sounds, CTAB. Absent: rhonchi, wheezes - Cardiovascular Cardiovascular exam: Present: distant heart sounds, RRR. Absent: tachycardia - GI/Abdominal GI/Abdominal exam: Present: soft. Absent: tenderness - Additional comments: Torres in place - Extremities Exam Extremities exam: Present: warm. Absent: tenderness - Neurological Exam Neurological exam: Present: alert, oriented X3, no focal deficits - Psychiatric Psychiatric exam: Present: normal affect, normal mood - Skin Skin exam: Present: warm. Absent: rash Internal Medicine: Result - Labs CBC & Chem 7: 12/24/16 01:13 12/24/16 01:13 Labs: Short CBC 12/24/16 Range/Units 01:13 WBC 10.6 D (4.3-11.1) K/mcL Hgb 13.5 (12.9-16.9) g/dL Hct 39.6 (37.5-50.1) % Plt Count 145 (140-400) K/mcL Neutrophils # 6.9 (1.6-8.9) K/mcL BMP 12/24/16 01:13 Sodium 142 Potassium 3.5 Chloride 107 Carbon Dioxide 26 BUN 22 Creatinine 1.26 H Glucose 124 H Calcium 9.3 Cardiac Enzymes 12/23/16 12/24/16 12/24/16 Range/Units 21:05 01:13 07:19 Troponin I 0.09 H* 1.44 H* 3.11 H* (0-0.03) ng/mL Liver Function 12/24/16 Range/Units 01:13 Total Bilirubin 0.5 (0.2-1.2) mg/dL AST 24 (5-34) Units/L ALT 12 (0-55) Units/L Alkaline Phosphatase 78 (38-126) Units/L Albumin 3.5 (3.5-5.0) g/dL - ABG Interpretation ABG results: PT/INR, D-dimer PT 13.8 Seconds (9.4-12.1) H 12/24/16 07:19 - VTE Documentation of Mechanical Device: Intermittent pneumatic compression device Consult Discharge Plan - Plan Referrals: Garcia Herrera MD [Primary Care Provider] -
--- NOTE | 2016-12-24 17:41 | Event Note ---
Date of Encounter: 12/24/16 Time of Encounter: 17:00 - Cardiology Event Note s/p LHC with 99% distal RCA ([place] 1,0,0) bifurcation lesion with large PLB/ PDA supplying large myocardial distribution. Patient has aspirin allergy. Discussed with Dr. Lunsford for aspirin desensitization. Continue NTG and heparin drip. Plan for PCI in the morning ~8am. Will use brilinta and IV G2b3a - Aggrastat - as my dual antiplatelet agents. Will run the aggrastat until aspirin desensitization complete. Revascularization before desensitization because potential anaphylactic reaction during desensitization would likely result in STEMI/arrest.
[2016-12-24] MEDS: *HR* Ticagrelor 90 MG TABLET PO SCH (19:38)
--- NOTE | 2016-12-24 20:29 | Electrocardiograph Report ---
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
--- NOTE | 2016-12-24 20:47 | Electrocardiograph Report ---
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
[2016-12-24 21:40] LABS: Activated Partial Thrombo Time 116.7 Seconds (26.0-36.0)
[2016-12-24 21:47] LABS: Heparin anti-factor XA UFH 1.04 IU/mL (0.30-0.70)
[2016-12-25] MEDS: 0.9 % Sodium Chloride 1,000 ML IVC SCH ×3 (04:50→20:17)
[2016-12-25] MEDS ORDERED: Loratadine 10 MG TABLET PO ONE (06:00)
[2016-12-25] MEDS: Heparin 25,000 UNIT/500 ML D5W 25,000 UNIT/500 ML MLS IVC SCH (06:06)
[2016-12-25] MEDS ORDERED: *HR* EPINEPHrine 0.3 MG/0.3 ML (PEN) IM PRN (07:00)
[2016-12-25] MEDS ORDERED: [UNRECOGNIZED DRUG - REMARK] PO ONE (07:00)
[2016-12-25] MEDS ORDERED: *HR* EPINEPHrine 1 MG/10 ML SYRINGE IVP PRN (07:00)
[2016-12-25] MEDS ORDERED: [UNRECOGNIZED DRUG - REMARK] PO ONE (07:00)
[2016-12-25] MEDS ORDERED: [UNRECOGNIZED DRUG - REMARK] PO ONE (07:00)
[2016-12-25] MEDS ORDERED: [UNRECOGNIZED DRUG - REMARK] PO ONE (07:00)
[2016-12-25] MEDS ORDERED: [UNRECOGNIZED DRUG - REMARK] PO ONE (07:00)
[2016-12-25] MEDS ORDERED: methylPREDNISolone 125 MG/2 ML VIAL IVP PRN (07:00)
[2016-12-25] MEDS ORDERED: Aspirin 81 MG TAB.CHEW PO ONE (07:00)
[2016-12-25] MEDS ORDERED: [UNRECOGNIZED DRUG - REMARK] PO ONE (07:00)
[2016-12-25] MEDS ORDERED: EPINEPHRINE 0.15 MG/0.3 ML IM PRN ×2 (07:00)
[2016-12-25] MEDS ORDERED: [UNRECOGNIZED DRUG - REMARK] PO ONE (07:00)
[2016-12-25] MEDS ORDERED: Famotidine 20 MG/2 ML VIAL IVP PRN (07:00)
[2016-12-25] MEDS: Insulin LISPRO 300 UNITS/3 ML VIAL SQ SCH ×4 (07:30→20:06)
--- NOTE | 2016-12-25 07:51 | Pre-Sedation Evaluation ---
Pre-sedation evaluation - Pre-sedation checklist Date of procedure: 12/24/16 Procedure: Left Heart Cath Recent Vitals: Last Vital Signs Temp 97.9 F 12/25/16 07:00 Pulse 62 12/25/16 07:00 Resp 14 12/25/16 07:00 BP 145/75 12/25/16 07:00 Pulse Ox 97 12/25/16 07:00 H&P (including ROS) documented in medical record: Yes Previous reaction to sedatives/anesthetics: No Dietary Status: NPO after Midnight Dentition: dentures removed ASA Classification *see protocol: CLASS II-Mild systemic disease, E-EMERGENCY- Add to any of the above to indicate emergent Plan of Care: Pt appropriate candidate for procedure/moderate/conscious sedation , Risks/benefits of procedure/sedation discussed w/ patient/family
[2016-12-25] MEDS ORDERED: *HR* Midazolam HCl 5 MG/5 ML VIAL IVP ONE (07:52)
[2016-12-25] MEDS ORDERED: *HR* FentaNYL (PF) 100 MCG/2 ML VIAL ONE (07:52)
[2016-12-25] MEDS ORDERED: Tirofiban 12.5 MG/250ML 12.5 MG/250 ML BAG ONE (08:07)
[2016-12-25] MEDS ORDERED: *HR* Ticagrelor 90 MG TABLET ONE (09:01)
[2016-12-25] MEDS: *HR* Ticagrelor 90 MG TABLET PO SCH ×2 (09:14→20:06)
[2016-12-25] MEDS ORDERED: Tirofiban 12.5 MG/250ML 12.5 MG/250 ML BAG IVC SCH (09:15)
--- NOTE | 2016-12-25 09:24 | Invasive Diagnostic Lab Proc ---
Name: Conor Gipson Date of Study: 12/25/2016 Date: 1930 Ht: 72.8in Medical Record#: [id number] Age: 86 Wt: 211.64lb Gender: Male BSA: 2.2 Order #: [id number] BMI: 28.05 Physicians Procedure Physician: Cody Beard MD, [facility] Referring MD: Referring MD: Staff Name Position Time In [email or web address] RN Monitor 07:57 AM Staci Cummings RT (R) Scrub 07:57 AM Aniya Vernon RN Manufacturing Finance Manager 07:57 AM Tatiana Koroma RN Monitor 07:57 AM Indications Indication Non-Stemi Procedures Performed Procedure PRQ CARD CLAY STENT W/ANGIO 1 VSL Pre-Procedure Checklist Informed consent is complete signed and on chart. H\\T\\P is on chart. ID band is on and ID verified with patient. Patient NPO for procedure The procedure was described for the patient and questions were answered. Blood Pressure: 164/91 ECG is on chart. Rhythm: Atrial Fibrillation Plan of Care Patient will tolerate the procedure without complications. Adequate level of comfort will be maintained. Hemodynamics will remain stable Patient will recover from procedure without complications. Respiratory function will be maintained. Cardiac rhythm will remain stable. Patient temperature will be maintained. Patient and/or family have verbalized understanding of the procedure. Patient Education Chief Complaint/Reason for Test: Cardiac Cath Developmental Category: Geriatric (65+ years) Developmentally Appropriate for Age: Yes Learning Barriers: None Education Needs: Procedure Education Method: Verbal Information Taught: Cardiac Cath Educational Evaluation: Able to repeat information Intravenous Access Time IV Size Location DC'd Fluid/Drip Rate Units RN 07:53 AM 18g 1 /" Patent On Arrival Lt Antecubital 0.9NaCl 25 ml/hr Aniya Vernon RN Allergies Penicillin aspirin Vital Signs Time BP (mmHg) HR (bpm) O2 Sat. RR (bpm) LOC / % 5 = Fully awake and oriented or at pre-proc level 07:50 AM / % 5 = Fully awake and oriented or at pre-proc level 08:03 AM / % 4 = Oriented but drowsy 07:54 AM 164 / 91 65 99 % 17 07:59 AM 186 / 72 57 97 % 9 08:03 AM 178 / 67 56 96 % 10 08:08 AM 130 / 50 64 95 % 18 08:14 AM 152 / 54 59 95 % 19 08:19 AM 170 / 67 59 95 % 21 08:23 AM 162 / 51 61 95 % 12 08:28 AM 157 / 55 61 95 % 15 08:34 AM 193 / 61 63 95 % 9 08:38 AM 194 / 77 61 95 % 19 08:44 AM 187 / 76 62 95 % 10 08:48 AM 175 / 62 59 96 % 14 08:53 AM 163 / 67 59 97 % 23 08:59 AM 172 / 74 138 % Procedural Medications Time Medication Dose Units Method Given By 07:55 AM Oxygen 2 L/min nasal cannula Aniya Vernon RN 07:57 AM Versed 2 mg Intravenous Aniya Vernon RN 07:57 AM Fentanyl 25 mcg Intravenous Aniya Vernon RN 08:05 AM Lidocaine 2% 0.5 ml Subcutaneous Cody Beard MD, FAC 08:06 AM Nitroglycerin 200 mcg Verapamil 2.5 mg Intraarterial Cody Beard MD, FACC 08:10 AM Heparin 3000 units Intravenous Aniya Vernon RN 08:10 AM Aggrastat Bolus: 50 ml Intravenous Aniya Vernon RN 08:10 AM Aggrastat 12.5mg/250ml 18 ml/hr Intravenous Aniya Vernon RN 08:20 AM Nitroglycerin 200 mcg Intracoronary Cody Beard MD 08:31 AM Fentanyl 25 mcg Intravenous Aniya Vernon RN 08:40 AM Nitroglycerin 200 mcg Intracoronary Cody Beard MD 08:54 AM Nitroglycerin 200 mcg Intracoronary Cody Beard MD 08:59 AM Brilinta 90 mg Orally Aniya Vernon RN ASA Classification: CLASS II- Mild systemic disease (i.e. well-controlled diabetes, hypertension, asthma, cigarette smoking) Deana Score Preprocedure Postprocedure Activity 2- Moves 4 extremities sustained head lift Activity 2- Moves 4 extremities sustained head lift Circulation 2- SBP +/= 20 points of pre-anesthetic level Circulation 2- SBP +/= 20 points of pre-anesthetic level Consciousness 2- Awake and alert oriented x 3 Consciousness 2- Awake and alert oriented x 3 O2 Saturation 2- Able to maintain O2 satruation of 92% on room air O2 Saturation 2- Able to maintain O2 satruation of 92% on room air Respiratory 2- Able to deep breathe and cough well Respiratory 2- Able to deep breathe and cough well Total Score 10 Total Score 10 Contrast Agent: Isovue Diagnostic Contrast: 132 ml Total Contrast: 132 ml Fluoro Dose: 1830 mGy Activated Clotting Time Time Seconds to Clot 08:09 AM 161 Procedure Log Time Note Enter By 07:26 AM Vitals capture started with the following parameters, Patient=Adult, Interval=5 min, Initial Gdjadidg=772 mmHg, Deflation Rate=5 mmHg, Cuff placed on Left Arm 07:45 AM Pt arrived to laborer livestock 2 at 07:45 [email or web address] 07:46 AM Physician arrived 07:46 [email or web address] 07:46 AM Juan F and milad completed [email or web address] 07:46 AM Sign in performed according to hospital policy. [email or web address] 07:47 AM Procedure start 07:47 [email or web address] 07:50 AM Time: 07:50LOC: 5 = Fully awake and oriented or at pre-proc level [email or web address] 07:52 AM CathStat 07:52 AM Vitals capture started with the following parameters, Patient=Adult, Interval=5 min, Initial Ljgjhhtv=493 mmHg, Deflation Rate=5 mmHg, Cuff placed on Left Arm 07:54 AM HR=65 bpm, LLFQ=000/91 mmhg, SpO2=99.0 %, Resp=17 B/min, Comment=nsr 07:55 AM Time: 07:55 Oxygen on at 2 L/min per nasal cannula by Aniya Vernon RN [email or web address] 07:57 AM Time: 07:57 Versed 2 mg Intravenous Given by Aniya Vernon RN [email or web address] 07:57 AM Time: 07:57 Fentanyl 25 mcg Intravenous Given by Aniya Vernon RN [email or web address] 07:57 AM aMr Casas RN Position: Monitor Time in: 07:57 [email or web address] 07:57 AM Staci Cummings (RT)(R) Position: Scrub Time in: 07:57 [email or web address] 07:57 AM Aniya Vernon RN Position: Manufacturing Finance Manager Time in: 07:57 [email or web address] 07:57 AM Tatiana Koroma RN Position: Monitor Time in: 07:57 [email or web address] 07:57 AM Patient charges- Angio tray pack, Navilyst 3mm J, Pulse Oximetry and ACIST tubing and transducer [email or web address] 07:57 AM Case Delayed No, Inpatient [email or web address] 07:58 AM Hair removed from procedure site in procedure lab using clippers. Right wrist and rt groin prepped with Chloraprep by Aniya Vernon RN, patient was draped. Skin intact. [email or web address] 07:58 AM ASA Class CLASS II- Mild systemic disease (i.e. well-controlled diabetes, hypertension, asthma, cigarette smoking) [email or web address] 07:59 AM HR=57 bpm, PEDV=550/72 mmhg, SpO2=97.0 %, Resp=9 B/min, Comment=sb 08:01 AM Time: 08:01 Patient comfortable and pain free: Yes [email or web address] 08:03 AM Clinical Presentation: Non-STEMI [email or web address] 08:03 AM HR=56 bpm, QDEK=043/67 mmhg, SpO2=96.0 %, Resp=10 B/min, Comment=sb 08:03 AM Pressure channel 1 zeroed. 08:04 AM Time out performed according to hospital policy [email or web address] 08:05 AM Lesion found in Distal RCA. Pre Stenosis: 99 Pre ESTHELA Flow: [email or web address] 08:06 AM Time: 08:05 0.5 ml Lidocaine 2% to right radial Subcutaneous Given by Cody Beard MD, [email or web address] 08:06 AM Access obtained by percutaneous puncture. 6Fr 11cm Terumo Glidesheath sheath placed in right Radial artery. [id number] [email or web address] 08:06 AM Time: 08:06 Patient given , 200 mcg Nitroglycerin, and 2.5 mg Verapamil Intraarterial by Cody Beard MD, [facility] [email or web address] 08:07 AM Inflation device was opened. [email or web address] 08:08 AM 6Fr XBRCA Cordis guide catheter was used to cannulate the PCI vessel successfully. reused? No [email or web address] 08:08 AM HR=64 bpm, DRAR=058/50 mmhg, SpO2=95.0 %, Resp=18 B/min, Comment=nsr 08:09 AM At 08:09 the ACT was 161 seconds. [email or web address] 08:10 AM Time: 08:10 Heparin 3000 units Intravenous Given by Aniya Vernon RN [email or web address] 08:10 AM Time: 08:10 Aggrastat Bolus: 50 ml Intravenous Given by Aniya Vernon RN Vizcaino pump [email or web address] 08:11 AM Time: 08:10 Aggrastat 12.5mg/250ml 18 ml/hr Intravenous Given by Aniya Vernon RN Vizcaino pump [email or web address] 08:11 AM RCA angiography performed in multiple views. [email or web address] 08:11 AM Recorded Pressure: Ao, HR=60, Condition=Condition 1 (Aorta) Ao 106/47/72 08:12 AM .014 PT Graphix 182cm guide wire across target lesion- successful. reused? No [email or web address] 08:13 AM 2.0 mm x 12 mm Emerge Monorail balloon across target lesion- successful. reused? No [email or web address] 08:14 AM HR=59 bpm, MJWR=373/54 mmhg, SpO2=95.0 %, Resp=19 B/min, Comment=sb 08:15 AM Balloon catheter removed intact. [email or web address] 08:15 AM Guide wire removed intact. [email or web address] 08:15 AM Guide catheter removed intact. [email or web address] 08:16 AM 6Fr IM Runway guide catheter was used to cannulate the PCI vessel successfully. reused? No [email or web address] 08:16 AM Time: 08:01 Patient comfortable and pain free: Yes [email or web address] 08:17 AM Time: 08:03LOC: 4 = Oriented but drowsy [email or web address] 08:17 AM PT Graphix reinserted [email or web address] 08:18 AM 6Fr Guidezilla advanced [email or web address] 08:18 AM Recorded Pressure: Ao, HR=59, Condition=Condition 1 (Aorta) Ao 91/30/54 08:19 AM 2.0x12 emerge balloon reinserted [email or web address] 08:19 AM HR=59 bpm, WQHS=672/67 mmhg, SpO2=95.0 %, Resp=21 B/min, Comment=NSR 08:20 AM Time: 08:20 Nitroglycerin 200 mcg Intracoronary Given by Cody Beard MD [email or web address] 08:21 AM Recorded Pressure: Ao, HR=60, Condition=Condition 1 (Aorta) Ao 107/40/68 08:23 AM HR=61 bpm, VBWT=571/51 mmhg, SpO2=95.0 %, Resp=12 B/min, Comment=NSR 08:24 AM Balloon inflated @ 8 justin for 10 seconds [email or web address] 08:26 AM Pressure channel 1 zeroed. 08:27 AM Balloon catheter removed intact. [email or web address] 08:28 AM 2.5mm x 20mm Synergy drug-eluting stent across target lesion- successful Lot #[id number] [email or web address] 08:28 AM HR=61 bpm, GXOB=437/55 mmhg, SpO2=95.0 %, Resp=15 B/min, Comment=NSR 08:30 AM Recorded Pressure: Ao, HR=62, Condition=Condition 1 (Aorta) Ao 101/57/79 08:31 AM Time: 08:31 Fentanyl 25 mcg Intravenous Given by Aniya Vernon RN [email or web address] 08:31 AM Recorded Pressure: Ao, HR=63, Condition=Condition 1 (Aorta) Ao 124/76/100 08:32 AM Stent deployed @ 14 justin for 10 seconds [email or web address] 08:32 AM Recorded Pressure: Ao, HR=64, Condition=Condition 1 (Aorta) Ao 110/66/87 08:33 AM Stent delivery system removed intact. [email or web address] 08:33 AM 3.0 mm x 12mm NC Emerge balloon across target lesion- successful. reused? No [email or web address] 08:34 AM HR=63 bpm, TNMP=255/61 mmhg, SpO2=95.0 %, Resp=9 B/min, Comment=NSR 08:35 AM Recorded Pressure: Ao, HR=63, Condition=Condition 1 (Aorta) Ao 114/56/81 08:36 AM Balloon inflated @ 12 justin for 8 seconds [email or web address] 08:36 AM Balloon inflated @ 12 justin for 7 seconds [email or web address] 08:37 AM Balloon inflated @ 12 justin for 9 seconds [email or web address] 08:37 AM Recorded Pressure: Ao, HR=62, Condition=Condition 1 (Aorta) Ao 99/52/71 08:37 AM Balloon catheter removed intact. [email or web address] 08:38 AM 3.75 mm x 8mm NC Emerge balloon across target lesion- successful. reused? No [email or web address] 08:38 AM HR=61 bpm, SJFJ=450/77 mmhg, SpO2=95.0 %, Resp=19 B/min, Comment=NSR 08:40 AM Balloon inflated @ 12 justin for 12 seconds [email or web address] 08:40 AM Time: 08:40 Nitroglycerin 200 mcg Intracoronary Given by Cody Beard MD [email or web address] 08:42 AM Recorded Pressure: Ao, HR=63, Condition=Condition 1 (Aorta) Ao 111/65/86 08:43 AM Balloon catheter removed intact. [email or web address] 08:43 AM 3.25 mm x 12mm NC Emerge balloon across target lesion- successful. reused? No [email or web address] 08:44 AM HR=62 bpm, HIQU=888/76 mmhg, SpO2=95.0 %, Resp=10 B/min, Comment=NSR 08:48 AM HR=59 bpm, ZCWW=966/62 mmhg, SpO2=96.0 %, Resp=14 B/min 08:49 AM Recorded Pressure: Ao, HR=59, Condition=Condition 1 (Aorta) Ao 115/47/79 08:50 AM balloon removed intact, not inflated [email or web address] 08:51 AM 3.25 mm x 8 mm Emerge Monorail balloon across target lesion- successful. reused? No [email or web address] 08:53 AM HR=59 bpm, BUWU=452/67 mmhg, SpO2=97.0 %, Resp=23 B/min, Comment=NSR 08:54 AM Balloon inflated @ 12 justin for 22 seconds [email or web address] 08:54 AM Time: 08:54 Nitroglycerin 200 mcg Intracoronary Given by Cody Beard MD [email or web address] 08:54 AM Recorded Pressure: Ao, HR=60, Condition=Condition 1 (Aorta) Ao 114/63/88 08:55 AM Balloon catheter removed intact. [email or web address] 08:56 AM Guide wire removed intact. [email or web address] 08:56 AM Guidezilla removed intact. [email or web address] 08:56 AM Guide catheter removed intact. [email or web address] 08:56 AM PCI Status Urgent [email or web address] 08:56 AM PCI Indication: PCI for high risk Non-STEMI or unstable angina [email or web address] 08:59 AM Procedure completed at 08:58 [email or web address] 08:59 AM VU=695 bpm, AKYG=230/74 mmhg 08:59 AM Time: 08:59 Brilinta 90 mg Orally Given by Aniya Vernon RN [email or web address] 09:01 AM Sign out completed: Radiation Dose 1830 mGy Fluoro Time: 19.1 Isovue 370 - 200ml contrast 132 ml given by Cody Beard MD, [facility]. Complications: NoneCardiac Rehab Consult needed: YesConfirmed administered medications: Yes [email or web address] 09:01 AM Isovue 370 - 500ml,1 Bottle(s) used. [email or web address] 09:01 AM Arterial sheath pulled, Vasc Band closure device used and was Successful S/N. [email or web address] 09:02 AM 10 ml air in Vasc Band. [email or web address] 09:02 AM Post ECG NSR [email or web address] 09:02 AM Post Blood Pressure 163/67 [email or web address] 09:03 AM Information taught Cardiac Cath, PCI, and Vasc Band [email or web address] 09:03 AM Education needs Procedure, Plan of Care, and Responsibilities of Patient in Care [email or web address] 09:03 AM 09:03 Post Pulses Rt Radial 1+ [email or web address] 09:03 AM Learning barriers :None [email or web address] 09:03 AM Education Methods Verbal [email or web address] 09:03 AM Education evaluation Able to repeat information [email or web address] 09:03 AM Site status No bleeding/hematoma - Rt Wrist as reported by Staci Cummings RT (R) at 09:03 [email or web address] 09:03 AM Plavix, Effient or Brilinta given Yes [email or web address] 09:04 AM Delay to floor No [email or web address] 09:04 AM Family placed in consult room. [email or web address] 09:04 AM Complications: None [email or web address] 09:04 AM Fluoro Time: 19.1 [email or web address] 09:04 AM Isovue 370 - 200ml contrast 132 ml given by Cody Beard MD, [facility]. [email or web address] 09:04 AM Radiation Dose 1830 mGy [email or web address] 09:12 AM Report given to Aissatou BROWN Pt taken to ICU Room #8. 09:12 [email or web address] 09:13 AM Patient out of room: 09:13 [email or web address] 09:15 AM Coronary Dominance: right [email or web address] Complications Complication None None Hemodynamics Pressures Site Systolic/A Wave Diastolic/V Wave Mean AO 106 47 72 AO 91 30 54 AO 107 40 68 AO 101 57 79 AO 124 76 100 AO 110 66 87 AO 114 56 81 AO 99 52 71 AO 111 65 86 AO 115 47 79 AO 114 63 88 Post Procedure Information Blood Pressure: 163/67 mmHg Rhythm: NSR Post procedural instructions were given Closure Device Time Device Success/Fail 12/25/2016 9:00:00 AM Mechanical Compression Successful Site Checks Time Location Status Staff Sheath In? Note 09:03 AM Rt Wrist No bleeding/hematoma Staci Cummings RT (R) Pulses Time Site Pre-Procedure Post-Procedure Note 12/25/2016 7:53:00 AM Bilateral DP \\T\\ PT 2+ 12/25/2016 7:53:00 AM Bilateral radial 2+ 9:03:00 AM Rt Radial 1+ Updated by Anjelica Agarwal RT(R) on 12/25/2016 9:17:31 AM electronically signed on 12/25/2016 9:18:14 AM with status of Final
[2016-12-25] MEDS: [UNRECOGNIZED DRUG - OTHER] PO SCH (11:34)
[2016-12-25] MEDS: Gabapentin 300 MG CAPSULE PO SCH ×2 (13:41→20:06)
[2016-12-25] MEDS: Lisinopril 20 MG TABLET PO SCH (14:08)
[2016-12-25] MEDS: Finasteride 5 MG TABLET PO SCH (14:09)
--- NOTE | 2016-12-25 14:21 | Allergy Consult Note ---
Date of Encounter: 12/25/16 Time of Encounter: 09:30 Assessment and Plan (1) Aspirin allergy Current Visit: Yes Status: Acute 86 year old male with history of aspirin allergy who is requiring aspirin for heart diseases. 1. Will desensitize patient to aspirin in ICU today 2. Hold metoprolol prior to procedure 3. NPO 4. After procedure patient will need to take aspirin every day. I have explained to him that if patient does not take medication for over 48 hours then we would need to desensitize him again. History of Present Illness Consult date: 12/25/16 Reason for consult: Drug allergy (Aspirin Allergy) Requesting physician: Cody Beard History of present illness: This is an 86 year old male who was admitted for heart attack. Patient was catherized this morning and needs to be on aspirin. Patient reports that he had itching, swelling and difficulty breathing 20 minutes after aspirin in s. He has not had aspirin since. Past Med Surg Social Fam HX - Past Medical History Medical history: cardiomyopathy, diabetes, hyperlipidemia, thyroid disease Psychiatric history: no psych history - Past Surgical History Surgical History: no surgical history - Social History Smoking Status: Former smoker Smokeless Tobacco Status: No Alcohol use: none Drug use: none - Family History Father Race: Family Member Ethnicity: Non- Living Status: Age at : 84 Cause of : Cancer Hx Family Cancer: Yes Mother Race: Family Member Ethnicity: Non- Living Status: Age at : 78 Cause of : Unknown Brother Race: Family Member Ethnicity: Non- Living Status: Age at : 80 Cause of : Heart disease Hx Family Cardiac Disorders: Yes Sister Race: Family Member Ethnicity: Non- Living Status: Age at : 69 Cause of : Cancer Hx Family Cancer: Yes Medications and Allergies Amiodarone [Cordarone] 200 mg PO DAILY 06/08/15 [History] Clopidogrel [Plavix] 75 mg PO DAILY 06/08/15 [History] Finasteride [Proscar] 5 mg PO DAILY 06/08/15 [History] Gabapentin [Neurontin] 600 mg PO BID 06/08/15 [History] Lisinopril [Zestril] 40 mg PO DAILY 06/08/15 [History] Metaproterenol Sulfate 10 mg PO DAILY 06/08/15 [History] Metformin [Glucophage] 500 mg PO BIDWM 06/08/15 [History] Simvastatin [Zocor] 80 mg PO DAILY 06/08/15 [History] Tramadol HCl [Ultram] 50 - 100 mg PO TID 06/08/15 [History] Apixaban [Eliquis] 5 mg PO BID 12/23/16 [History] Cholecalciferol (D-3) [Vitamin D] 1,000 unit PO DAILY 12/23/16 [History] Levothyroxine [Synthroid] 75 mcg PO DAILY 12/23/16 [History] Allergies Penicillins [PCN] Allergy (Verified 06/08/15 13:53) Difficulty Breathing ROS Allergy - Constitutional Constitutional ROS: no fever(s) - EENT Nose, mouth and throat: no dysphagia, no lip swelling, no throat swelling, no tongue swelling - Cardiovascular Cardiovascular ROS IM: no chest pain - Respiratory no cough, no wheezing - Gastrointestinal Gastrointestinal: no vomiting - Integumentary Integumentary: no rash - Allergic/Immunologic no tongue swelling, no throat swelling, no itchy eyes, no uticaria, no wheezing , no lip swelling Allergy Exam Initial Vital Signs Temp Pulse Resp BP Pulse Ox 97.3 F L 65 16 179/79 99 12/23/16 12:18 12/23/16 12:18 12/23/16 12:18 12/23/16 12:18 12/23/16 12:18 - General physical appearance well nourished, no distress - Eyes normal ocular movement - ENT normal nares - Neck no masses - Respiratory normal respiratory effort, clear to auscultation - Abdomen Abdomen: non tender, bowel sounds - Integumentary no rash Results - Labs 12/24/16 01:13 12/24/16 01:13 Abnormal lab results PT 13.8 Seconds (9.4-12.1) H 12/24/16 07:19 APTT 87.6 Seconds (26.0-36.0) H 12/25/16 10:47 Heparin Anti-Xa, Unfract 1.04 IU/mL (0.30-0.70) H* 12/24/16 21:12 Creatinine 1.26 mg/dL (0.72-1.25) H 12/24/16 01:13 Est GFR (Non-Af Amer) 55 (> 60) L 12/24/16 01:13 Glucose 124 mg/dL (70-99) H 12/24/16 01:13 POC Glucose 142 (58-89) H 12/24/16 19:35 Troponin I 3.11 ng/mL (0-0.03) H* 12/24/16 07:19 B-Natriuretic Peptide 190 pg/mL (0-100) H 12/23/16 12:57 All other labs normal. Consult Discharge Plan - Plan Referrals: Garcia Herrera MD [Primary Care Provider] -
--- NOTE | 2016-12-25 14:33 | Allergy Procedure Note ---
Date of procedure: 12/25/16 Pre-op diagnosis: aspirin allergy Post-op diagnosis: other (desensitized to aspirin) Procedure: Aspirin Desensitization Patient with history of aspirin allergy. See consult note for HPI details. I discussed risk and benefits with patient. I explained to patient the risk of an allergic reaction including itching, hives, swelling, airway closure, diarrhea, vomiting, drop in blood pressure, heart attack, or . I have explained that he is at increased risk due to his recent [place] and recent beta lambert use. Written consent obtained. He has stopped his beta lambert for 24 hours prior to procedure. Patient was premedicated with singulair 10mg and claritin 10mg. Epinephrine, solumedrol, benadryl and pepcid at bedside. Dose 1- 0.1mg aspirin given PO, patient observed closely x 15 minutes, exam unchanged, patient denies any new complaints, vitals unchanged(see vitals recorded under vitals section) Dose 2- 0.3mg aspirin given PO, patient observed closely x 15 minutes, exam unchanged, patient denies any new complaints, vitals unchanged(see vitals recorded under vitals section) Dose 3- 1mg aspirin given PO, patient observed closely x 15 minutes, exam unchanged, patient denies any new complaints, vitals unchanged(see vitals recorded under vitals section) Dose 4- 3mg aspirin given PO, patient observed closely x 15 minutes, exam unchanged, patient denies any new complaints, vitals unchanged(see vitals recorded under vitals section) Dose 5-10mg aspirin given PO, patient observed closely x 15 minutes, exam unchanged, patient denies any new complaints, vitals unchanged(see vitals recorded under vitals section) Dose 6-20mgmg aspirin given PO, patient observed closely x 15 minutes, exam unchanged, patient denies any new complaints, vitals unchanged(see vitals recorded under vitals section) Dose 7-40mg aspirin given PO, patient observed closely x 15 minutes, exam unchanged, patient denies any new complaints, vitals unchanged(see vitals recorded under vitals section) Dose 8-81mg aspirin given PO, patient observed closely x 60 minutes, exam unchanged, patient denies any new complaints, vitals unchanged(see vitals recorded under vitals section) Patient has tolerated the procedure well. He is desensitized to aspirin. He should take 81mg daily. If he goes longer than 48 hours without aspirin he should then not take it and would need the procedure again. Total time spent with patient 3hours 20minutes. Anesthesia: none Condition: stable
--- NOTE | 2016-12-25 14:34 | ECHO - Doppler Report ---
Echocardiogram Name: Conor Gipson Date of Study: 12/25/2016 Date: 1930 Ht: 73.0 in Medical Record#: [id number] Age: 86 Wt: 209.0 lb Gender: Male BSA: 2.19 Order #: [id number] Location: [facility] Room #: IC08 Reading Physician: Tena Waller DO Wildland Firefighter: Gerard Taylor RDCS Ordering Physician: Cholo Pappas CNP Primary Physician: Garcia Herrera MD Indications: Chest pain Impressions: LVEF 55%. Normal left ventricular size and systolic function. Mild concentric hypertrophy of the left ventricle. There is evidence of mild diastolic dysfunction of the left ventricle. Mildly dilated RV with normal function. Mild aortic regurgitation. Mild mitral regurgitation. Mild tricuspid regurgitation. No pulmonary hypertension by TR gradient. IVC is not well visualized. Left Ventricular Wall Motion: Rest Echo Findings All wall segments showed normal motion. Findings: Study Quality * Technically sub-optimal due to body habitus. ECG Findings * Sinus bradycardia. Aortic Valve * Trileaflet aortic valve. * Mildly calcified aortic valve leaflets. * Mild aortic regurgitation. * No Aortic stenosis. Mitral Valve * Mildly calcified mitral valve leaflets. * No mitral stenosis. * Mild mitral regurgitation. Tricuspid Valve * Tricuspid valve not well visualized. * Mild tricuspid regurgitation. Pulmonic Valve * Pulmonic valve is not well visualized. * No pulmonic stenosis. * No pulmonic regurgitation. Pulmonary Artery * Pulmonary artery not well visualized. Left Ventricle * LVEF 55%. * Mild concentric left ventricular hypertrophy. * Mild left ventricular diastolic dysfunction. Right Ventricle * Mildly dilated with normal function. Not well visualized in PSAX or subcostal views. Right Atrium * Normal right atrial size. Left Atrium * Severely dilated left atrium. Interatrial Septum * Interatrial septum not well evaluated. Pericardium * There is no pericardial effusion present. IVC * The IVC is not well evaluated. Aorta * Suboptimally visualized. History Hypertension Diabetes Hypercholesteremia Family History of CAD History of CAD/PTCA 03/17/15 a Previous Echo was performed. Measurements: BP: 145/ 75 2D Normal Values RVIDd: 2.33 cm <2.7 cm IVSd: 1.45 cm 0.6 - 1.0 cm LVIDd: 4.34 cm 3.7 - 5.6 cm LVPWd: 1.40 cm 0.6 - 1.1 cm LVIDs: 2.65 cm 1.5 - 3.6 cm AO: 2.80 cm < 4.0 cm LA: 3.80 cm 2.0 - 4.0cm %FS: 38.90 cm >25 % LA volume: 99 Mitral Valve Peak E:.91 m/sec Peak A:.93 m/sec E/A Ratio:1 Peak E' Lat Robin:6.64 cm/s Peak E' Med Robin:6.42 cm/s E/E' Lat Ratio:13.7 E/E' Med Ratio:14.2 Aortic Valve AI pressure Half-time: 495.00 msec Tricuspid Valve TV Regurg Peak Grad: 19.00mmHg TV Regurg Peak Robin: 2.17m/sec Updated by Tena Waller on 12/25/2016 2:27:55 PM electronically signed on 12/25/2016 2:30:01 PM with status of Final Wall Motion [place]: 1=Normal, 2=Hypokinesis, 3=Akinesis, 4=Dyskinesis, 5=Aneurysmal, 6=Hyperkinetic, X=Not Visualized (Blank)=Missing
[2016-12-25] MEDS: *HR* Amiodarone 200 MG TABLET PO SCH (15:19)
--- NOTE | 2016-12-25 16:02 | Electrocardiograph Report ---
[place] [id number] Test Date: 2016-12-24 Pat Name: Conor Gipson Department: 109 Room: [facility] Gender: M Recreation Program Coordinator: JUSTIN : 1930 Requested By: Veronika Solano Order Number: [id number] Reading MD: Cody Beard MD Measurements Intervals [place] Rate: 49 P: 34 NH: 222 QRS: 2 QRSD: 150 T: -38 QT: 510 QTc: 481 Interpretive Statements SINUS BRADYCARDIA WITH SINUS ARRHYTHMIA WITH FIRST DEGREE AV BLOCK RIGHT BUNDLE BRANCH BLOCK Electronically Signed On 12-25-2016 16:01:17 EDT by Cody Beard MD
[2016-12-25] MEDS: hydrALAZINE 25 MG TABLET PO SCH ×2 (17:41→23:40)
[2016-12-25] MEDS: Cholecalciferol (D-3) 1,000 UNIT TABLET PO SCH (17:41)
--- NOTE | 2016-12-25 17:50 | Internal Med Progress Note ---
Date of Encounter: 12/25/16 Time of Encounter: 16:00 - Assessment and plan (1) NSTEMI (non-ST elevation myocardial infarction) Current Visit: Yes Status: Acute Assessment and plan: s/p PCI to RCA. On DAPT. He is doing well at this time. No issue after ASA desensitivity. Continue statin and supportive care. (2) Diabetes mellitus Current Visit: Yes Status: Chronic Assessment and plan: Continue to hold metformin. Insulin coverage ordered. Qualifiers: Diabetes mellitus type: type 2 Diabetes mellitus complication status: with hyperglycemia Diabetes mellitus usp insulin use: without usp use Qualified Code(s): E11.65 - Type 2 diabetes mellitus with hyperglycemia (3) Hyperlipidemia Current Visit: Yes Status: Chronic Assessment and plan: Continue statin. Qualifiers: Hyperlipidemia type: mixed hyperlipidemia Qualified Code(s): E78.2 - Mixed hyperlipidemia (4) Urinary retention due to benign prostatic hyperplasia Current Visit: Yes Status: Acute Assessment and plan: Per urology. Torres in place. (5) Hypothyroid Current Visit: Yes Status: Acute Qualifiers: Hypothyroidism type: acquired Qualified Code(s): E03.9 - Hypothyroidism, unspecified (6) CAD (coronary artery disease) Current Visit: Yes Status: Acute Assessment and plan: S/P stent placement. Qualifiers: Coronary Disease-Associated Artery/Lesion type: [place] artery [place] vs. transplanted heart: [place] heart Associated angina: with unstable angina Qualified Code(s): I25.110 - Atherosclerotic heart disease of [place] coronary artery with unstable angina pectoris - Subjective Interval history: Mr. Gipson is currently admitted for chest pain and troponins consistent with NSTEMI. He is high risk due to potential for worsening cardiac status. Mr. Gipson had cardiac cath yesterday and he had RCA occlusion. He went back to cath this AM and had stent placed. This afternoon he had ASA desensitization and is doing OK. No complaints at this time. No CP or SOB. No rash. - Constitutional Vitals: Temp Pulse Resp BP Pulse Ox 97.7 F 58 14 180/72 99 12/25/16 15:00 12/25/16 15:00 12/25/16 15:00 12/25/16 15:00 12/25/16 15:00 General appearance: Present: cooperative, A&O X 3, pleasant, answers questions appropriately - Eye Eye exam: Present: EOMI, conjuntiva pink - ENT ENT exam: Present: mucous membranes dry - Respiratory Respiratory exam: Present: decreased breath sounds, CTAB. Absent: rhonchi, wheezes - Cardiovascular Cardiovascular exam: Present: RRR. Absent: tachycardia - GI/Abdominal GI/Abdominal exam: Present: soft. Absent: tenderness - Extremities Exam Extremities exam: Present: warm. Absent: tenderness - Neurological Exam Neurological exam: Present: alert, oriented X3, no focal deficits - Psychiatric Psychiatric exam: Present: normal affect, normal mood - Skin Skin exam: Present: warm. Absent: rash Internal Medicine: Result - Labs CBC & Chem 7: 12/24/16 01:13 12/24/16 01:13 - ABG Interpretation ABG results: PT/INR, D-dimer PT 13.8 Seconds (9.4-12.1) H 12/24/16 07:19 - VTE Documentation of Mechanical Device: Intermittent pneumatic compression device Consult Discharge Plan - Plan Referrals: Garcia Herrera MD [Primary Care Provider] -
[2016-12-25] MEDS: *HR* Heparin 5,000 UNIT/ML VIAL SQ SCH (20:09)
[2016-12-25] MEDS ORDERED: *HR* Labetalol 20 MG/4 ML SYRINGE IVP PRN (23:14)
[2016-12-26] MEDS: 0.9 % Sodium Chloride 1,000 ML IVC SCH (05:25)
[2016-12-26] MEDS: *HR* Heparin 5,000 UNIT/ML VIAL SQ SCH (05:27)
[2016-12-26 06:08] LABS: Hematocrit 34.3 % (37.5-50.1); Mean Corpuscular HGB Conc 34.1 g/dL (31.6-35.5); Mean Corpuscular Hemoglobin 30.1 pg (28.0-33.3); Mean Corpuscular Volume 88.2 fL (83.0-100.0); Platelet Count 124 K/mcL (140-400); Red Blood Count 3.89 M/mcL (4.19-5.50); Red Cell Distribution Width 14.2 % (11.5-14.5)
[2016-12-26 06:14] LABS: Hemoglobin 11.7 g/dL (12.9-16.9)
[2016-12-26 06:21] LABS: Alanine Aminotransferase 8 Units/L (0-55); Albumin/Globulin Ratio 1.1 (1.1-2.2); Alkaline Phosphatase 80 Units/L (38-126); Aspartate Amino Transferase 16 Units/L (5-34); BUN/Creatinine Ratio 17 (6-26); Bilirubin,Total 0.8 mg/dL (0.2-1.2); Blood Urea Nitrogen 14 mg/dL (8-26); Calcium 8.4 mg/dL (8.6-10.8); Carbon Dioxide 24 mEq/L (19-29); Chloride 112 mEq/L (98-109); Globulin 2.7 g/dL (2.4-3.5); Glucose 103 mg/dL (70-99); Magnesium 1.8 mg/dL (1.6-2.6); Osmolality,Calculated 295 (280-300); Potassium 3.5 mEq/L (3.5-4.5); Sodium 142 mEq/L (136-145); Total Protein 5.7 g/dL (6.0-8.3); eGFR For African Americans > 60 (> 60); eGFR For Non-African Americans > 60 (> 60)
[2016-12-26] MEDS: Insulin LISPRO 300 UNITS/3 ML VIAL SQ SCH ×2 (08:39→12:14)
[2016-12-26] MEDS: Gabapentin 300 MG CAPSULE PO SCH (08:49)
[2016-12-26] MEDS: Lisinopril 20 MG TABLET PO SCH (08:50)
[2016-12-26] MEDS: *HR* Ticagrelor 90 MG TABLET PO SCH (08:51)
[2016-12-26] MEDS: *HR* Amiodarone 200 MG TABLET PO SCH (08:51)
[2016-12-26] MEDS: [UNRECOGNIZED DRUG - OTHER] PO SCH (08:52)
[2016-12-26] MEDS: Finasteride 5 MG TABLET PO SCH (08:52)
[2016-12-26] MEDS: Cholecalciferol (D-3) 1,000 UNIT TABLET PO SCH (08:52)
[2016-12-26] MEDS: hydrALAZINE 25 MG TABLET PO SCH (08:52)
[2016-12-26] MEDS ORDERED: Aspirin 81 MG TAB.CHEW PO SCH (09:00)
[2016-12-26] MEDS ORDERED: hydrALAZINE 25 MG TABLET PO ONE (09:15)
--- NOTE | 2016-12-26 09:47 | Invasive Diagnostic Lab ---
Name: Conor Gipson Date of Study: 12/25/2016 Date: 1930 Ht: 185.0 cm /72.8 in Medical Record#: [id number] Age: 86 Wt: 96. kg / 211.64 lb Account/Order#: [id number] Gender: Male BSA: 2.2 Order #: [id number] Fluoro Dose: 1830 mGy BMI: 28.05 Procedure Physician: Cody Beard MD, [facility] Referring MD: Referring MD: Procedures Performed: Stent w/ PTCA Single Major Vessel Indications: Non-Stemi Impressions: Patient had successful PTCA/Drug-Eluting Stent placement in the distal RCA. Recommendations: Optimal medical therapy of patient's disease. Aggressive risk factor modification. Patient being referred for cardiac rehab. Aspirin desensitization - bridge with aggrastat/heparin until completed History/Risk Factors: cARDIOMYOPATHY Diabetes Hypertension Procedure Access obtained in the right Radial artery by percutaneous puncture Patient had successful PTCA/Drug-Eluting Stent placement in the distal RCA. Complications: None, None Contrast: Isovue 132ml Closure Device: Mechanical Compression Hemodynamics: Pressures Site Systolic/ A Wave Diastolic/ V Wave End Diastolic/ Mean HR AO 106 47 72 60 AO 91 30 54 59 AO 107 40 68 60 AO 101 57 79 62 AO 124 76 100 63 AO 110 66 87 64 AO 114 56 81 63 AO 99 52 71 62 AO 111 65 86 63 AO 115 47 79 59 AO 114 63 88 60 Coronary Dominance:right Lesion Findings/Interventions * Left Main Coronary Artery Please see cath from 12/24/16 * Left Anterior Descending Please see cath from 12/24/16 * Circumflex Please see cath from 12/24/16 * Right Coronary Artery There is a 20 mm long, 99% stenosis in the Distal RCA. Thrombus likely present. The lesion has a ESTHELA flow of 2 and is a bifurcation lesion. An intervention was performed on the Distal RCA with a final stenosis of 0%. There were no lesion complications. The final ESTHELA flow was 3. Distal portion of stent postdilated with 3.25 and proximal portion with 3.75. Interventional Device(s) Vessel Segment Type Name Diameter (mm) Length (mm) Distal RCA Balloon Emerge Monorail 2 12 Distal RCA Drug Eluting Stent Synergy 2.5 20 Distal RCA Balloon NC Emerge 3 12 Distal RCA Balloon NC Emerge 3.75 8 Distal RCA Balloon Emerge Monorail 3.25 8 Updated by RT Tracey(R) on 12/25/2016 9:14:40 AM Cody Beard MD, FACC electronically signed on 12/26/2016 9:41:01 AM with status of Final
--- NOTE | 2016-12-26 10:44 | Discharge Summary ---
Date of Encounter: 12/26/16 Time of Encounter: 10:31 - Discharge Diagnosis (1) Diabetes mellitus Priority: Secondary Status: Chronic Qualifiers: Diabetes mellitus type: type 2 Diabetes mellitus complication status: with hyperglycemia Diabetes mellitus terminal press operator insulin use: without terminal press operator use Qualified Code(s): E11.65 - Type 2 diabetes mellitus with hyperglycemia (2) Hyperlipidemia Priority: Secondary Status: Chronic Qualifiers: Hyperlipidemia type: mixed hyperlipidemia Qualified Code(s): E78.2 - Mixed hyperlipidemia (3) History of atrial fibrillation Priority: Secondary Status: Chronic (4) Urinary retention due to benign prostatic hyperplasia Priority: Primary Status: Acute (5) NSTEMI (non-ST elevation myocardial infarction) Priority: Primary Status: Acute (6) Hypothyroid Priority: Secondary Status: Chronic Qualifiers: Hypothyroidism type: acquired Qualified Code(s): E03.9 - Hypothyroidism, unspecified (7) Aspirin allergy Priority: Primary Status: Acute (8) CAD (coronary artery disease) Priority: Secondary Status: Chronic Qualifiers: Coronary Disease-Associated Artery/Lesion type: [place] artery [place] vs. transplanted heart: [place] heart Associated angina: with unstable angina Qualified Code(s): I25.110 - Atherosclerotic heart disease of [place] coronary artery with unstable angina pectoris - Discharge Medications Prescriptions: Aspirin [Lo-Dose Aspirin EC] 81 mg PO DAILY #30 tablet. Atorvastatin [Lipitor] 80 mg PO HS #30 tablet Metoprolol [Lopressor] 12.5 mg PO BID #60 tablet Tamsulosin [Flomax] 0.4 mg PO DAILY #30 capsule Ticagrelor [Brilinta] 90 mg PO BID #60 tablet Home Medications: Amiodarone [Cordarone] 200 mg PO DAILY 06/08/15 [History] Finasteride [Proscar] 5 mg PO DAILY 06/08/15 [History] Gabapentin [Neurontin] 600 mg PO BID 06/08/15 [History] Lisinopril [Zestril] 40 mg PO DAILY 06/08/15 [History] Metaproterenol Sulfate 10 mg PO DAILY 06/08/15 [History] Metformin [Glucophage] 500 mg PO BIDWM 06/08/15 [History] Tramadol HCl [Ultram] 50 - 100 mg PO TID 06/08/15 [History] Cholecalciferol (D-3) [Vitamin D] 1,000 unit PO DAILY 12/23/16 [History] Levothyroxine [Synthroid] 75 mcg PO DAILY 12/23/16 [History] Aspirin [Lo-Dose Aspirin EC] 81 mg PO DAILY #30 tablet. 12/26/16 [Rx] Atorvastatin [Lipitor] 80 mg PO HS #30 tablet 12/26/16 [Rx] Metoprolol [Lopressor] 12.5 mg PO BID #60 tablet 12/26/16 [Rx] Tamsulosin [Flomax] 0.4 mg PO DAILY #30 capsule 12/26/16 [Rx] Ticagrelor [Brilinta] 90 mg PO BID #60 tablet 12/26/16 [Rx] Allergies/Adverse Reactions: Allergies Penicillins [PCN] Allergy (Verified 06/08/15 13:53) Difficulty Breathing Procedures/tests Complete & Pending: Procedures Performed prior 72 hours Category Date Time Status CL Cardiac Catheterization [CL] Routine Cigarette Making Machine Operator 12/24/16 09:55 Completed Left Heart Cath [CL Cardiac Catheterization] [CL] Stat Cigarette Making Machine Operator 12/25/16 06: 02 Completed ECG 12 lead ECG [ECG] Routine Y 12/24/16 13:22 Completed EKG [ECG 12 lead ECG] [ECG] Stat Y 12/23/16 21:46 Completed EKG [ECG 12 lead ECG] [ECG] Stat Y 12/24/16 03:03 Completed EV echocardiogram Routine Y 12/25/16 Completed Date of admission: 12/23/16 16:24 Primary care physician: Garcia Herrera MD Consults: 12/23/16 16:48 Consult to Cardiology [CONS] Routine Comment: Consulting Provider: Cardiology [place] Reason for Consult: Chest pain, abnormal EKG, and history of atrial fibrillation Call Completed: Yes 12/23/16 17:52 Consult to Home Theater Installer [CONS] Routine Reason for SW Consult: Pt wants 12/24/16 12:28 Consult to Allergy/Immunology [CONS] Routine Consulting Provider: Allergy [place] Reason for Consult: aspirin desensitization Call Completed: Yes 12/24/16 12:41 Consult to Cardiac Rehabilitation-Phase1 [CONS] Routine Comment: Reason for Consult: NSTEMI Call Completed: No Discharging clinician: Cesar Arnold Anticipated date of discharge: 12/26/16 - Patient Status Disposition: Home, Self-Care Condition: Fair Functional capacity at discharge: independent ambulation Overall status at discharge: patient is back to baseline - Discharge Instructions Follow Up With: Garcia Herrera MD [Primary Care Provider] - Forms: ED Satisfaction Letter - Diet and Activity Activity: resume usual activities as tolerated Diet: diabetic diet, low fat, low cholesterol, low salt diet Interval History: See below Hospital course: Mr. Gipson is a 86 year old male Seen and evaluated at bedside He has a PMH of CAD , Hypothyroidism, Afib, HLD, HTN, BPH He was admitted for NSTEMI, He has ASA allergy and was successfully desensitized in the ICU Hospital stay complicated by Urinary retention with Torres inserted by Urologist He denies new complains Vitals are stable I believe he is stable to be discharged home after cardiology review Urology has been paged for possible voiding trial as O-P, he is to keep the Torres till follow up in a week at clinic Patient was on Eliquis for A-fib and is now on ASA and Brilinta, He has a hx of frequent falls and hematuria His Eliquis has been discontinued He is discharged hon lopressor, ASA, Brilinta, Tasmulosin,Lipitor Home medications have been continued except Plavix, Eliquis, Simvastatin and Diltiazem Follow up with PCP, Cardiology and Urology - Time Spent with Patient Total time spent providing and/or coordinating discharge services: Greater than 30 minutes (40 minutes spent on patient encounter, chartv review, consultations , medication reconciliation and documentation) - Constitutional Vitals: Temp Pulse Resp BP Pulse Ox 97.6 F 66 18 168/80 96 12/26/16 08:22 12/26/16 09:00 12/26/16 09:00 12/26/16 09:00 12/26/16 09:00 General appearance: Present: cooperative, A&O X 3, pleasant, no acute distress, answers questions appropriately - Head Head exam: Present: atraumatic, normocephalic - Eye Eye exam: Present: PERRL, conjuntiva pink, sclera anicteric Pupils: Present: PERRL - Neck Neck exam general surgery: Present: supple, trachea midline. Absent: lymphadenopathy - Respiratory Respiratory exam: Present: CTAB. Absent: accessory muscle use, rales, rhonchi, wheezes - Cardiovascular Cardiovascular exam: Present: RRR, +S1, +S2. Absent: diastolic murmur, gallop, rubs, systolic murmur - GI/Abdominal GI/Abdominal exam: Present: normal bowel sounds, soft, no peritoneal signs. Absent: distended, tenderness - Extremities Exam Extremities exam: Present: warm, radial pulses palpable and symetrical. Absent : calf tenderness, cyanotic, pedal edema - Neurological Exam Neurological exam: Present: alert, CN II-XII intact, oriented X3, no focal deficits. Absent: pronater drift, facial droop, speech deficit - Skin Skin exam: Present: dry, intact - VTE Documentation of Mechanical Device: Intermittent pneumatic compression device
--- NOTE | 2016-12-26 11:52 | Cardiology Progress Note ---
Date of Encounter: 12/26/16 Time of Encounter: 11:49 Assessment and Plan (1) NSTEMI (non-ST elevation myocardial infarction) Current Visit: Yes Status: Acute S/p PTCA and CLAY to the 99% stenosed distal RCA. There was a 90% stenosis in 1st diagonal artery, medical management recommended. Moderate triple vessel CAD otherwise. Importance of DApT (asa and brilinta) discussed with patient and he voiced understanding. Continue statin. Will add low dose bb and stop cardizem. Continue as tolerated. He denies recurrent chest pain. Activity restrictions reviewed. No driving for one week. No lifting over 5 lbs with right arm for one week. Keep clean and dry for one week. Out-pt f/u in one week. (2) Atrial fibrillation Current Visit: Yes Status: Acute He will likely not tolerate triple therapy. Pt with hematuria, urology following. He also c/o frequent falls and bleeding skin tears. Discussed with patient we will hold eliquis for now and re-evaluate once we allow time for hematuria from truamatic bustillos insertion resolve. Increased risk of stroke discussed and he voiced understanding. Currently NSR. Continue amiodarone. Low dose bb started. Avg HR on telemtry was 66 bpm. Qualifiers: Atrial fibrillation type: paroxysmal Qualified Code(s): I48.0 - Paroxysmal atrial fibrillation (3) Hypertension Current Visit: Yes Status: Acute Agree with increasing hydralizine. Unable to tolerate cardizem. Low sodium diet. Qualifiers: Hypertension type: essential hypertension Qualified Code(s): I10 - Essential (primary) hypertension Discussion w patient/family: The assessment and plan as outlined above was discussed with the patient and/or family members who expressed understanding and agreement. All questions were answered. Thank you for involving us in the care of your patient. Please call with any questions. Subjective Principal diagnosis: NSTEMI Interval history: Denies recurrent chest pain. Denies palpitations. Objective Vital Signs, Last 4 Hours Temp Pulse Resp BP Pulse Ox 12/26/16 11:00 61 16 154/68 97 12/26/16 10:29 60 14 172/85 98 12/26/16 09:00 66 18 168/80 96 12/26/16 08:30 67 16 179/80 97 12/26/16 08:22 97.6 F 12/26/16 08:00 70 General: Conversant, No Apparent Distress HEENT: Atraumatic, Normocephaly, Mucus Membranes Moist Neck: No JVD, Normal carotid pulses Cardiac: Reg Rate and Rhythm, Normal S1 and S2, No Murmur Lungs: Normal Breath Sounds, No Wheeze, Rales, Rhonchi, Other (Faint rales Left upper lobe noted, otherwise lungs clear to auscultate. ) Neuro: Alert and responsive, No focal deficits noted Abdomen: Soft, Non-Tender Skin: No rashes noted on visualized skin, Other (multiple skin tears and scabbed areas. Right radial access site dressing removed. No hematoma or redness.) Musculoskeletal: No Chest Wall Tenderness Extremities: No Clubbing, No Cyanosis, No Edema, Normal Pulses Results 12/26/16 05:38 12/26/16 05:38 Lab Results 12/26/16 12/26/16 05:38 05:38 WBC 7.5 Hgb 11.7 L D Hct 34.3 L Plt Count 124 L Sodium 142 Potassium 3.5 Chloride 112 H Carbon Dioxide 24 BUN 14 Creatinine 0.83 Glucose 103 H Calcium 8.4 L Magnesium 1.8 Total Bilirubin 0.8 D AST 16 ALT 8 Alkaline Phosphatase 80 - EKG Interpretation EKG results cardiology: other (telemetry review sowed avg R 66 bpm. HR frequently in the 50's during daytime hours. SB. Min HR was 50.) - VTE Documentation of Mechanical Device: Intermittent pneumatic compression device Consult Discharge Plan - Plan Referrals: Garcia Herrera MD [Primary Care Provider] -
[2016-12-26 12:30] VITALS: BP 168/83
[2016-12-26] MEDS ORDERED: hydrALAZINE 25 MG TABLET PO SCH ×3 (16:00→17:24)
== END 2016-12-26 13:48 | disposition home or self-care (01) | DRG 247 ==
LOC: 3BNU 12:07 → EMEROO 12:07 → SUATTDRO 16:24 → 3BNU 16:48 → 2NENU 19:47 → ICNU 12-24 12:43
PROVIDERS: ADMIT Hospitalist; ATTEND Internal Medicine

== ENCOUNTER 2017-07-06 19:26 | Inpatient (IN) ==
[2017-07-06] MEDS ORDERED: Acetaminophen 325 MG TABLET PO PRN (22:41)
[2017-07-06] MEDS ORDERED: Naloxone 0.4 MG/ML INJ IVP PRN (22:41)
[2017-07-06] MEDS ORDERED: Ondansetron 4 MG/2 ML VIAL IVP PRN (22:41)
[2017-07-06] MEDS ORDERED: Nitroglycerin 0.4 MG TAB.SUBL SL PRN (22:46)
[2017-07-06] MEDS ORDERED: traMADol 50 MG TABLET PO PRN (22:46)
[2017-07-06] MEDS ORDERED: Dextrose Gel 15 GM PO PRN ×2 (22:48)
[2017-07-06] MEDS ORDERED: D5% in Water 1,000 ML IVC PRN (22:48)
[2017-07-06] MEDS ORDERED: *HR* Dextrose 50 % in Water (Syg) 50 ML SYRINGE IVP PRN (22:48)
--- NOTE | 2017-07-06 23:04 | Internal Med History&Physical ---
<NataliashawguillermoCholo lozada - Last Filed: 07/06/17 23:55> Date of Encounter: 07/06/17 Time of Encounter: 22:00 Assessment and Plan (1) Atrial fibrillation with rapid ventricular response Current visit: Yes Status: Acute Patient reports three-day episode of recurring atrial fibrillation w/RVR. Was seen at [facility] ED and kept overnight. Discharged home this afternoon and returned to ED after RVR began again. Transferred to [facility]. Pt. placed on cardizem drip. HR on admission was 140's and now in 70's. Will continue cardizem drip overnight and discontinue in a.m. one hour after patient receives PO dosing of cardizem CD 120 mg daily at 07:30. Orders to titrate drip down if pt. becomes bradycardic. Continuous cardiac telemetry. Cardiology consult ordered. Pt. high risk for cardiac event based on current Afib w/RVR requiring cardizem drip, previous SC w/stent, hx, and risk factors. Inpatient. (2) Chest pain Current visit: Yes Status: Acute Patient reports three days of chest pain centralized in his chest w/radiation to left arm. No alleviating or aggravating factors. Hx. of previous SC in December w/stent placement x1. Initial troponin 0.01. Trend x2. Continuous cardiac telemetry. Supplemental O2 with titration SPO2 monitoring. Cardiology consult ordered. Echocardiogram on 12/25/16 showed LVEF 55%, normal left ventricular size and systolic function, mild concentric hypertrophy of the LV, mild diastolic dysfunction of the LV, mildly dilated RV with normal function; mild aortic, mitral, tricuspid regurgitation; and no pulmonary HTN by TR gradient. Monitor pt. for signs of increasing cardiac and/or respiratory distress. Qualifiers: Chest pain type: other chest pain Qualified Code(s): R07.89 - Other chest pain; R07.8 - Other chest pain (3) HLD (hyperlipidemia) Current visit: Yes Status: Chronic Hx of chronic HLD. Lipid panel in a.m. labs. Continue patient's Lipitor. Qualifiers: Hyperlipidemia type: pure hypercholesterolemia Qualified Code(s): E78.00 - Pure hypercholesterolemia, unspecified; E78.0 - Pure hypercholesterolemia (4) HTN (hypertension) Current visit: Yes Status: Chronic Hx of chronic HTN. Monitor pt. and VS. Continue patient's Imdur and lisinopril. Qualifiers: Hypertension type: essential hypertension Qualified Code(s): I10 - Essential (primary) hypertension (5) CAD (coronary artery disease) Current visit: Yes Status: Chronic Hx of chronic CAD. Pt. reports previous SC in December 2016 w/stent placement x1. Hx of risk factors including chronic atrial fibrillation, cardiomyopathy, HLD, HTN, and DM. Continuous cardiac telemetry. Will continue patient's eloquence, Plavix, aspirin therapy, Lipitor, Imdur, and lisinopril. Qualifiers: Coronary Disease-Associated Artery/Lesion type: [place] artery [place] vs. transplanted heart: [place] heart Associated angina: angina presence unspecified Qualified Code(s): I25.10 - Atherosclerotic heart disease of [place] coronary artery without angina pectoris (6) Diabetes mellitus Current visit: Yes Status: Chronic Hx of chronic diabetes controlled with oral antihyperglycemic medications. Will hold oral medications and administer low-dose correction insulin sliding scale with hypoglycemic protocol. BG checks ACHS. A1c in a.m. labs. 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 Continue patient's Synthroid. TSH in a.m. labs. Qualifiers: Hypothyroidism type: acquired Qualified Code(s): E03.9 - Hypothyroidism, unspecified (8) DVT prophylaxis Current visit: Yes Status: Acute Continue patient's Eliquis for DVT prophylaxis. Monitor pt. for signs of unusual bleeding. Internal Medicine - H&P: HPI Chief complaint: Chest pain/Racing heart Admitted From: Emergency Dept Plans for Post Hospital Care: Home History of present illness: Mr. Gipson is a 86 year old male with medical history of chronic atrial fibrillation, cardiomyopathy, diabetes controlled with oral anti-hyperglycemics , hyperlipidemia, hypertension, previous SC with stent placement 1 in December 2016, and thyroid disease presents to ED at [facility] with chief complaint of chest pain that began yesterday as centralized in his chest and radiating to his left arm. Patient also states his heart felt like it was racing. Patient held overnight and [facility] ED and discharged this afternoon. Return to [facility] ED after RVR began again. States he wanted to be transferred to [facility] for tx. Pt. states Dr. Beard placed his stent. Patient reports chest discomfort with shortness of breath but denies recent illness, fever, chills, nausea, vomiting, abdominal pain, diarrhea, constipation, changes in vision, numbness, tingling, unusual bleeding, headache, lightheadedness, dizziness, diaphoresis, pre-syncope , or syncope. Past Med Surg Social Fam HX - Past Medical History Source: patient, old records reviewed Medical history: arthritis, atrial fibrillation, cardiomyopathy, diabetes, hyperlipidemia, hypertension, myocardial infarction (December 2016 w/stent x1), thyroid disease, other Psychiatric history: no psych history - Past Surgical History Surgical History: no surgical history - Social History Smoking Status: Former smoker Packs per day: 1 PPD - Reports quitting 30 years ago Smokeless Tobacco Status: No Alcohol use: none Drug use: none Current living situation: Home Activity Level: Independent ambulation Recent Out of Country Travel Within the Last 8 Weeks: No Exposure or Possible Exposure to Illness During Travel: No - Family History Father Race: Family Member Ethnicity: Non- Living Status: Age at : 85 Cause of : Cancer Hx Family Cancer: Yes Mother Race: Family Member Ethnicity: Non- Living Status: Age at : 79 Cause of : Car accident Brother Adopted: No Race: Family Member Ethnicity: Non- Living Status: Age at : 81 Cause of : CAD Hx Family Cardiac Disorders: Yes (CAD, AICD) Sister Race: Family Member Ethnicity: Non- Living Status: Age at : 62 Cause of : Cervical cancer Hx Family Cancer: Yes (Cervical) Internal Medicine - H&P: Meds Finasteride [Proscar] 5 mg PO DAILY 06/08/15 [History] Tramadol HCl [Ultram] 50 - 100 mg PO TID PRN 06/08/15 [History] metFORMIN [Glucophage] 500 mg PO BIDWM 06/08/15 [History] Cholecalciferol (D-3) [Vitamin D] 1,000 unit PO DAILY 12/23/16 [History] Levothyroxine [Synthroid] 75 mcg PO QAM 12/23/16 [History] Aspirin [Lo-Dose Aspirin EC] 81 mg PO DAILY #30 tablet. 12/26/16 [Rx] Clopidogrel [Plavix] 75 mg PO DAILY 03/03/17 [History] Gabapentin [Neurontin] 600 mg PO BID 03/03/17 [History] Nitroglycerin [Nitrostat] 0.4 mg SL Q5M PRN #1 vial 03/04/17 [Rx] Apixaban [Eliquis] 5 mg PO HS 06/30/17 [History] Atorvastatin Calcium [Lipitor] 80 mg PO HS 07/06/17 [History] Isosorbide MONOnitrate (24 HR) [Imdur] 30 mg PO DAILY 07/06/17 [History] Lisinopril [Zestril] 40 mg PO DAILY #30 tablet 07/06/17 [Rx] 3 Allergy/AdvReac Type Severity Reaction Status Date / Time Penicillins [PCN] Allergy Difficulty Verified 03/20/17 10:09 Breathing All Systems PM: A 10-system review of systems was performed and is negative for pertinent findings except as documented above in the HPI. - Constitutional Constitutional: no chills, no fever(s), no night sweats - EENT Eyes: no change in vision, no discharge, no pain, no photophobia Ears: no ear discharge, no ear pain, no tinnitus Nose, mouth and throat: no dysphagia, no nasal discharge, no neck pain, no sore throat - Breasts Breasts: as per HPI - Cardiovascular Cardiovascular ROS IM: as per HPI, chest pain (Centralized chest pressure w/ radiation to left arm), dyspnea, irregular heart rhythm, palpitations - Respiratory Respiratory: as per HPI, dyspnea - Gastrointestinal Gastrointestinal: no abdominal pain, no diarrhea, no hematemesis, no hematochezia, no melena, no nausea, no vomiting - Genitourinary Genitourinary ROS male: as per HPI - Musculoskeletal Musculoskeletal ROS IM: no numbness, no tingling - Integumentary Integumentary IM: no rash, no unusual bruising - Neurological Neurological ROS: no confusion, no convulsions, no focal weakness, no numbness, no tingling, no tremor(s) - Psychiatric Psychiatric: as per HPI - Endocrine Endocrine IM: as per HPI - Hematologic/Lymphatic Hematologic/Lymphatic: no easy bruising - Allergic/Immunologic Allergic/Immunologic: as per HPI - Constitutional Vitals: Temp Pulse Resp BP Pulse Ox 97.8 F 79 17 159/97 98 07/06/17 21:16 07/06/17 22:13 07/06/17 21:16 07/06/17 22:13 07/06/17 21:30 General appearance: Present: cooperative, A&O X 3, pleasant, no acute distress, obese, answers questions appropriately - Head Head exam: Present: atraumatic, normocephalic - Eye Eye exam: Present: PERRL, conjuntiva pink, sclera anicteric Pupils: Present: PERRL - ENT ENT exam: Present: normal exam, normal external ear exam - Neck Neck exam general surgery: Present: normal inspection, supple, trachea midline. Absent: lymphadenopathy - Respiratory Respiratory exam: Present: CTAB. Absent: accessory muscle use, rales, rhonchi, wheezes - Cardiovascular Cardiovascular exam: Present: irregular rhythm - GI/Abdominal GI/Abdominal exam: Present: normal bowel sounds, soft, no peritoneal signs. Absent: distended, tenderness - Rectal Rectal exam: Present: deferred - Additional comments: exam deferred. - Extremities Exam Extremities exam: Present: warm, radial pulses palpable and symmetrical. Absent : calf tenderness, cyanotic, pedal edema - Back Exam Back exam: Present: normal inspection - Neurological Exam Neurological exam: Present: CN II-XII intact, oriented X3, no focal deficits. Absent: pronater drift, facial droop, speech deficit - Psychiatric Psychiatric exam: Present: normal affect, normal mood - Skin Skin exam: Present: dry, intact Internal Med - H&P Results - EKG Data EKG comments: 07/06/17 23:29 EKG dated 07/06/17 17:14:53 shows atrial flutter/tachycardia with rapid ventricular response, marked left axis deviation, right bundle branch block. EKG dated 07/06/17 18:17:22 shows atrial fibrillation and right bundle branch block. <Jose Paz - Last Filed: 07/07/17 02:16> Date of Encounter: 07/07/17 Time of Encounter: 01:15 - Cardiovascular Cardiovascular ROS IM: chest pain, dyspnea, irregular heart rhythm, palpitations - Respiratory Respiratory: dyspnea, no cough, no chest congestion, no excessive phlegm production - Gastrointestinal Gastrointestinal: no diarrhea, no vomiting - Neurological Neurological ROS: no focal weakness, no frequent falls - Constitutional Vitals: Temp Pulse Resp BP Pulse Ox 97.7 F 60 17 157/65 98 07/06/17 23:38 07/06/17 23:38 07/06/17 23:38 07/06/17 23:38 07/06/17 23:38 General appearance: Present: cooperative, pleasant, no acute distress - Eye Eye exam: Present: EOMI, normal appearance, PERRL. Absent: scleral icterus Pupils: Present: normal accommodation - Neck Neck exam general surgery: Present: supple - Respiratory Respiratory exam: Present: CTAB. Absent: rales, rhonchi, wheezes - Cardiovascular Cardiovascular exam: Present: irregular rhythm, +S1, +S2. Absent: diastolic murmur, systolic murmur - GI/Abdominal GI/Abdominal exam: Present: soft. Absent: tenderness - Extremities Exam Extremities exam: Present: warm, radial pulses palpable and symmetrical. Absent : calf tenderness, pedal edema - Skin Skin exam: Present: dry, warm Internal Med - H&P Results - Labs CBC & Chem 7: 07/07/17 00:21 07/07/17 00:21 Labs: Short CBC 07/07/17 Range/Units 00:21 WBC 6.4 (4.3-11.1) K/mcL Hgb 12.0 L D (12.9-16.9) g/dL Hct 35.8 L (37.5-50.1) % Plt Count 150 (140-400) K/mcL Neutrophils # 3.5 (1.6-8.9) K/mcL BMP 07/07/17 00:21 Sodium 141 Potassium 3.8 Chloride 109 Carbon Dioxide 24 BUN 21 Creatinine 1.02 Glucose 137 H Calcium 8.7 Cardiac Enzymes 07/07/17 Range/Units 00:21 Troponin I 0.02 (0-0.03) ng/mL Liver Function 07/07/17 Range/Units 00:21 Total Bilirubin 0.3 (0.2-1.2) mg/dL AST 14 (5-34) Units/L ALT 8 (0-55) Units/L Alkaline Phosphatase 80 (38-126) Units/L Albumin 3.3 L (3.5-5.0) g/dL - EKG Data -: EKG Interpreted by Myself - EKG Data EKG comments: 07/07/17 02:10 Atrial fibrillation with RVR - Diagnostic Studies Chest x-ray Status: image reviewed by me - Attending Attestation I discussed the patient ORUTSARARMIUT, PMH, ROS, lab data, and exam findings with Sanya Pappas CNP. I then saw and examined patient independently as well. Patient currently with HR in the 60's and patient feels well. He denies any chest pain presently. He admits to chest pain earlier today and yesterday. He has been faithful with his medications. Of note, when he was discharged from [facility] yesterday, his Metoprolol was discontinued. Rather than placing him on oral Cardizem, I will place him back on Metoprolol later this morning, and we can titrate his dose up as needed. We will trend his troponins and consult Cardiology. Given that he had chest pain, I worry this could have been an ischemic event triggering his atrial fibrillation with RVR. Other than my comments above and noted exam findings, I agree with Sanya's assessment and plan.
[2017-07-07] MEDS ORDERED: WATER IVC SCH (00:30)
[2017-07-07] MEDS ORDERED: DILTIAZEM HCL IVC SCH (00:30)
[2017-07-07] MEDS ORDERED: dilTIAZem HCl 100 MG in D5% in Water 50 ML IVC SCH ×2 (00:30→00:45)
[2017-07-07] MEDS ORDERED: D5 IVC SCH (00:30)
[2017-07-07 01:09] LABS: Basophils % 0.5 %; Eosinophils # 0.2 K/mcL (0.0-0.6); Eosinophils % 2.5 %; Hematocrit 35.8 % (37.5-50.1); Immature Granulocytes % 0.3 % (0-4); Lymphocytes # 2.2 K/mcL (0.6-4.6); Lymphocytes % 34.1 %; Mean Corpuscular HGB Conc 33.5 g/dL (31.6-35.5); Mean Corpuscular Volume 89.5 fL (83.0-100.0); Mean Platelet Volume 10.9 fL (9.4-12.4); Monocytes # 0.5 K/mcL (0.0-1.3); Monocytes % 7.5 %; Neutrophils # 3.5 K/mcL (1.6-8.9); Platelet Count 150 K/mcL (140-400); Red Cell Distribution Width 14.4 % (11.5-14.5); Segmented Neutrophils % 55.1 %
[2017-07-07 01:16] LABS: Hemoglobin A1C 5.4 %; INR 1.2; Prothrombin Time 12.6 Seconds (9.4-12.1)
[2017-07-07 01:18] LABS: Activated Partial Thrombo Time 31.1 Seconds (26.0-36.0)
[2017-07-07 01:23] LABS: Alanine Aminotransferase 8 Units/L (0-55); Albumin 3.3 g/dL (3.5-5.0); Albumin/Globulin Ratio 1.2 (1.1-2.2); Alkaline Phosphatase 80 Units/L (38-126); Aspartate Amino Transferase 14 Units/L (5-34); BUN/Creatinine Ratio 21 (6-26); Bilirubin,Total 0.3 mg/dL (0.2-1.2); Blood Urea Nitrogen 21 mg/dL (8-26); Calcium 8.7 mg/dL (8.6-10.8); Carbon Dioxide 24 mEq/L (19-29); Chloride 109 mEq/L (98-109); Chol/HDL Ratio 4.5 (0-4.9); Cholesterol 161 mg/dL (< 200); Globulin 2.7 g/dL (2.4-3.5); Glucose 137 mg/dL (70-99); HDL Cholesterol 36 mg/dL (40-59); LDL Cholesterol,Calculated 100 mg/dL (0-99); Osmolality,Calculated 297 (280-300); Potassium 3.8 mEq/L (3.5-4.5); Sodium 141 mEq/L (136-145); Triglycerides 126 mg/dL (< 150); eGFR For African Americans > 60 (> 60); eGFR For Non-African Americans > 60 (> 60)
[2017-07-07] MEDS ORDERED: Diltiazem CD (24hr) 120 MG CAPSULE PO SCH (07:30)
[2017-07-07] MEDS: Insulin LISPRO 300 UNITS/3 ML VIAL SQ SCH ×4 (09:00→20:34)
[2017-07-07] MEDS: Isosorbide MONOnitrate (24 HR) 30 MG TAB.ER.24H PO SCH (09:01)
[2017-07-07] MEDS: Cholecalciferol (D-3) 1,000 UNIT TABLET PO SCH (09:01)
[2017-07-07] MEDS: Finasteride 5 MG TABLET PO SCH (09:01)
[2017-07-07] MEDS: Gabapentin 300 MG CAPSULE PO SCH ×2 (09:01→20:34)
[2017-07-07] MEDS: Lisinopril 20 MG TABLET PO SCH (09:01)
[2017-07-07] MEDS: Aspirin Enteric Coated 81 MG Tablet PO SCH (09:01)
--- NOTE | 2017-07-07 09:44 | Cardiology Consult Note ---
Date of Encounter: 07/07/17 Time of Encounter: 09:41 Assessment and Plan (1) PAF (paroxysmal atrial fibrillation) Current Visit: Yes Status: Acute Patient with a primary complaint of palpitations. Overnight, atrial fibrillation with RVR. Spontaneous conversion to sinus rhythm this morning. Agree with Cardizem drip given overnight. Recommend start Cardizem CD 120 mg daily. Okay to discontinue Cardizem drip. Heart rate remained sinus rhythm or rate controlled, then no further cardiac recommendations. CHADS-VASc elevated. Recommend continue Eliquis therapy. (2) CAD (coronary artery disease) Current Visit: Yes Status: Chronic [place] CAD, prior NSTEMI 12/2016 s/p CLAY x to distal LAD. Troponins negative. No chest pain reported today. Recommend continue aspirin/Plavix ideally for one year since PCI. Counseled on risk of bleeding with triple therapy and to seek medical attention if any issues. Continue statin/ACEi/Imdur therapy. Qualifiers: Coronary Disease-Associated Artery/Lesion type: [place] artery [place] vs. transplanted heart: [place] heart Associated angina: angina presence unspecified Qualified Code(s): I25.10 - Atherosclerotic heart disease of [place] coronary artery without angina pectoris Discussion w patient/family: The assessment and plan as outlined above was discussed with the patient and/or family members who expressed understanding and agreement. All questions were answered. Thank you for involving us in the care of your patient. Please call with any questions. History of Present Illness Consult date: 07/07/17 Requesting physician: Jose Paz Consult reason: AF Chief complaint: Palpitations History of present illness: Mr. Gipson is a 86 year old male with a history of CAD, previous NSTEMI 12/2016 s /p CLAY x1 to RCA. Patient recently at [place] ED, discharged yesterday afternoon. Return to hospital when tachycardia returned. During my encounter, patient reported that he felt better. Patient spontaneously converted to sinus rhythm during our discussion. No chest pain or discomfort reported. Serial troponins negative. Acceptable CBC, BMP. C 12/23/2016: Left main normal. LAD ostial 40-50% stenosis, mid 50-60% stenosis. D1 90% stenosis. Circumflex distal 50% stenosis. RCA distal 99% stenosis. CLAY placed in distal RCA on 12/25/2016 after aspirin desensitization performed. TTE 12/25/2016: LVEF 55%. Mild concentric LVH. Mild aortic, mitral, tricuspid regurgitation. No pulmonary hypertension. Past Med Surg Social Fam HX - Past Medical History Medical history: arthritis, atrial fibrillation, cardiomyopathy, diabetes, hyperlipidemia, hypertension, myocardial infarction (December 2016 w/stent x1), thyroid disease, other Psychiatric history: no psych history - Past Surgical History Surgical History: no surgical history - Social History Smoking Status: Former smoker Packs per day: 1 PPD - Reports quitting 30 years ago Smokeless Tobacco Status: No Alcohol use: none Drug use: none - Family History Father Race: Family Member Ethnicity: Non- Living Status: Age at : 85 Cause of : Cancer Hx Family Cancer: Yes Mother Race: Family Member Ethnicity: Non- Living Status: Age at : 79 Cause of : Car accident Brother Adopted: No Race: Family Member Ethnicity: Non- Living Status: Age at : 81 Cause of : CAD Hx Family Cardiac Disorders: Yes (CAD, AICD) Hx Family Respiratory Disorders: Yes Hx Family Cancer: Yes Hx Family GI Disorders: No Hx Family Endocrine Disorder: No Hx Family Neuromuscular Disorders: No Hx Family Neurologic Disorders: No Hx Family HEENT Disorders: No Hx Family Autoimmune Disorders: No Sister Race: Family Member Ethnicity: Non- Living Status: Age at : 62 Cause of : Cervical cancer Hx Family Cancer: Yes (Cervical) Medications and Allergies Finasteride [Proscar] 5 mg PO DAILY 06/08/15 [History] Tramadol HCl [Ultram] 50 - 100 mg PO TID PRN 06/08/15 [History] metFORMIN [Glucophage] 500 mg PO BIDWM 06/08/15 [History] Cholecalciferol (D-3) [Vitamin D] 1,000 unit PO DAILY 12/23/16 [History] Levothyroxine [Synthroid] 75 mcg PO QAM 12/23/16 [History] Aspirin [Lo-Dose Aspirin EC] 81 mg PO DAILY #30 tablet. 12/26/16 [Rx] Clopidogrel [Plavix] 75 mg PO DAILY 03/03/17 [History] Gabapentin [Neurontin] 600 mg PO BID 03/03/17 [History] Nitroglycerin [Nitrostat] 0.4 mg SL Q5M PRN #1 vial 03/04/17 [Rx] Apixaban [Eliquis] 5 mg PO HS 06/30/17 [History] Atorvastatin Calcium [Lipitor] 80 mg PO HS 07/06/17 [History] Isosorbide MONOnitrate (24 HR) [Imdur] 30 mg PO DAILY 07/06/17 [History] Lisinopril [Zestril] 40 mg PO DAILY #30 tablet 07/06/17 [Rx] 3 Allergy/AdvReac Type Severity Reaction Status Date / Time Penicillins [PCN] Allergy Difficulty Verified 03/20/17 10:09 Breathing All Systems Review: A 10-system review of systems was performed and is negative for pertinent findings except as documented above in the HPI. - Cardiovascular Cardiovascular: as per HPI, palpitations Physical Examination Vital Signs, Last 4 Hours Temp Pulse Resp BP Pulse Ox 07/07/17 07:32 97.8 F 80 18 161/84 97 General: Conversant, No Apparent Distress HEENT: Atraumatic, Normocephaly, Mucus Membranes Moist Neck: No JVD, Normal carotid pulses Cardiac: Reg Rate and Rhythm, Normal S1 and S2, No Murmur Lungs: Normal Breath Sounds, No Wheeze, Rales, Rhonchi Neuro: Alert and responsive, No focal deficits noted Abdomen: Soft, Non-Tender Skin: No rashes noted on visualized skin Musculoskeletal: No Chest Wall Tenderness Extremities: No Clubbing, No Cyanosis, No Edema Results 07/07/17 00:21 07/07/17 00:21 Lab Results 07/07/17 07/07/17 07/07/17 00:21 00:21 00:21 WBC 6.4 Hgb 12.0 L D Hct 35.8 L Plt Count 150 INR 1.2 APTT 31.1 Sodium Potassium Chloride Carbon Dioxide BUN Creatinine Glucose Calcium Magnesium Total Bilirubin AST ALT Alkaline Phosphatase Troponin I 0.02 TSH 07/07/17 07/07/17 07/07/17 00:21 00:21 06:06 WBC Hgb Hct Plt Count INR APTT Sodium 141 Potassium 3.8 Chloride 109 Carbon Dioxide 24 BUN 21 Creatinine 1.02 Glucose 137 H Calcium 8.7 Magnesium 2.0 Total Bilirubin 0.3 AST 14 ALT 8 Alkaline Phosphatase 80 Troponin I 0.03 TSH 4.075 - Imaging and Cardiology Echo: report reviewed Cardiac cath: report reviewed - EKG Interpretation EKG results cardiology: personally reviewed Consult Discharge Plan - Plan Referrals: Garcia Herrera MD [Primary Care Provider] -
[2017-07-07] MEDS: Diltiazem CD (24hr) 120 MG CAPSULE PO SCH (10:22)
--- NOTE | 2017-07-07 12:42 | Internal Med Progress Note ---
Date of Encounter: 07/07/17 Time of Encounter: 09:00 - Assessment and plan (1) PAF (paroxysmal atrial fibrillation) Current Visit: Yes Status: Acute Assessment and plan: Pt currently in NSR. He has been given Cardizem PO. Remains on Eliquis. To be kept here on double corner cutter overnight to keep track of his heartrate. (2) Diabetes mellitus Current Visit: Yes Status: Chronic Assessment and plan: Continue accuchecks and coverage as needed. Qualifiers: Diabetes mellitus type: type 2 Diabetes mellitus complication status: with hyperglycemia Diabetes mellitus group home insulin use: without rat exterminator use Qualified Code(s): E11.65 - Type 2 diabetes mellitus with hyperglycemia (3) Hypertension Current Visit: No Status: Chronic Assessment and plan: Blood pressure somewhat higher at this time. On PO Cardizem. May need to add med or adjust current meds if persists. Qualifiers: Hypertension type: essential hypertension Qualified Code(s): I10 - Essential (primary) hypertension (4) HLD (hyperlipidemia) Current Visit: Yes Status: Chronic Assessment and plan: Continue home meds. Qualifiers: Hyperlipidemia type: mixed hyperlipidemia Qualified Code(s): E78.2 - Mixed hyperlipidemia (5) Hypothyroid Current Visit: Yes Status: Chronic Assessment and plan: Continue home meds. Qualifiers: Hypothyroidism type: acquired Qualified Code(s): E03.9 - Hypothyroidism, unspecified (6) CAD (coronary artery disease) Current Visit: Yes Status: Chronic Assessment and plan: Continue routine home meds. Qualifiers: Coronary Disease-Associated Artery/Lesion type: [place] artery [place] vs. transplanted heart: [place] heart Associated angina: without angina Qualified Code(s): I25.10 - Atherosclerotic heart disease of [place] coronary artery without angina pectoris - Subjective Interval history: Mr. Gipson is currently admitted for rapid atrial fibrillation. He was recently at [place] and was aristeo on beta lambert. He has converted to NSR. He remains moderate to high risk due to potential for worsening cardiac status. Mr Gipson feels OK. He converted to NSR this AM. He is now on PO Cardizem. He denies CP or SOB currently. No fever or chills. - Constitutional Vitals: Temp Pulse Resp BP Pulse Ox 97.5 F L 57 18 184/83 97 07/07/17 11:00 07/07/17 11:00 07/07/17 11:00 07/07/17 11:00 07/07/17 11:00 General appearance: Present: cooperative, A&O X 3, pleasant, answers questions appropriately - Head Head exam: Present: atraumatic, normocephalic - Eye Eye exam: Present: EOMI, conjuntiva pink - ENT ENT exam: Present: mucous membranes moist - Respiratory Respiratory exam: Present: CTAB. Absent: rales, rhonchi, wheezes - Cardiovascular Cardiovascular exam: Present: RRR. Absent: tachycardia - GI/Abdominal GI/Abdominal exam: Present: soft. Absent: tenderness - Extremities Exam Extremities exam: Present: warm. Absent: tenderness - Neurological Exam Neurological exam: Present: alert, oriented X3, no focal deficits - Skin Skin exam: Present: warm. Absent: rash Internal Medicine: Result - Labs CBC & Chem 7: 07/07/17 00:21 07/07/17 00:21 Labs: Short CBC 07/07/17 Range/Units 00:21 WBC 6.4 (4.3-11.1) K/mcL Hgb 12.0 L D (12.9-16.9) g/dL Hct 35.8 L (37.5-50.1) % Plt Count 150 (140-400) K/mcL Neutrophils # 3.5 (1.6-8.9) K/mcL BMP 07/07/17 00:21 Sodium 141 Potassium 3.8 Chloride 109 Carbon Dioxide 24 BUN 21 Creatinine 1.02 Glucose 137 H Calcium 8.7 Cardiac Enzymes 07/07/17 07/07/17 Range/Units 00:21 06:06 Troponin I 0.02 0.03 (0-0.03) ng/mL Liver Function 07/07/17 Range/Units 00:21 Total Bilirubin 0.3 (0.2-1.2) mg/dL AST 14 (5-34) Units/L ALT 8 (0-55) Units/L Alkaline Phosphatase 80 (38-126) Units/L Albumin 3.3 L (3.5-5.0) g/dL - ABG Interpretation ABG results: PT/INR, D-dimer PT 12.6 Seconds (9.4-12.1) H 07/07/17 00:21 Consult Discharge Plan - Plan Referrals: Garcia Herrera MD [Primary Care Provider] -
[2017-07-07] MEDS: dilTIAZem HCl 100 MG in D5% in Water 50 ML IVC SCH (18:38)
[2017-07-07] MEDS ORDERED: APIXABAN 5 MG TABLET PO SCH (21:00)
[2017-07-08 05:53] LABS: Basophils % 0.4 %; Eosinophils # 0.2 K/mcL (0.0-0.6); Eosinophils % 3.4 %; Hematocrit 38.1 % (37.5-50.1); Hemoglobin 13.2 g/dL (12.9-16.9); Immature Granulocytes % 0.3 % (0-4); Lymphocytes # 2.2 K/mcL (0.6-4.6); Lymphocytes % 30.1 %; Mean Corpuscular HGB Conc 34.6 g/dL (31.6-35.5); Mean Corpuscular Hemoglobin 29.7 pg (28.0-33.3); Mean Corpuscular Volume 85.6 fL (83.0-100.0); Mean Platelet Volume 10.7 fL (9.4-12.4); Monocytes # 0.6 K/mcL (0.0-1.3); Monocytes % 8.1 %; Neutrophils # 4.1 K/mcL (1.6-8.9); Platelet Count 155 K/mcL (140-400); Red Blood Count 4.45 M/mcL (4.19-5.50); Red Cell Distribution Width 14.4 % (11.5-14.5); Segmented Neutrophils % 57.7 %
[2017-07-08 06:06] LABS: Alanine Aminotransferase 11 Units/L (0-55); Albumin 3.3 g/dL (3.5-5.0); Albumin/Globulin Ratio 1.1 (1.1-2.2); Alkaline Phosphatase 87 Units/L (38-126); Aspartate Amino Transferase 13 Units/L (5-34); BUN/Creatinine Ratio 19 (6-26); Bilirubin,Total 1.1 mg/dL (0.2-1.2); Blood Urea Nitrogen 22 mg/dL (8-26); Carbon Dioxide 25 mEq/L (19-29); Chloride 110 mEq/L (98-109); Globulin 3.1 g/dL (2.4-3.5); Glucose 120 mg/dL (70-99); Osmolality,Calculated 299 (280-300); Potassium 3.5 mEq/L (3.5-4.5); Sodium 142 mEq/L (136-145); Total Protein 6.4 g/dL (6.0-8.3); eGFR For African Americans > 60 (> 60); eGFR For Non-African Americans > 60 (> 60)
[2017-07-08] MEDS: dilTIAZem HCl 100 MG in D5% in Water 50 ML IVC SCH (06:23)
[2017-07-08] MEDS: Aspirin Enteric Coated 81 MG Tablet PO SCH (10:22)
[2017-07-08] MEDS: Diltiazem CD (24hr) 120 MG CAPSULE PO SCH (10:22)
[2017-07-08] MEDS: Lisinopril 20 MG TABLET PO SCH (10:23)
[2017-07-08] MEDS: Isosorbide MONOnitrate (24 HR) 30 MG TAB.ER.24H PO SCH (10:23)
[2017-07-08] MEDS: Gabapentin 300 MG CAPSULE PO SCH ×2 (10:23→20:47)
[2017-07-08] MEDS: Cholecalciferol (D-3) 1,000 UNIT TABLET PO SCH (10:23)
[2017-07-08] MEDS: Finasteride 5 MG TABLET PO SCH (10:23)
[2017-07-08] MEDS: Insulin LISPRO 300 UNITS/3 ML VIAL SQ SCH ×4 (10:24→20:47)
--- NOTE | 2017-07-08 12:21 | Internal Med Progress Note ---
Date of Encounter: 07/08/17 Time of Encounter: 10:00 - Assessment and plan (1) Sick sinus syndrome Current Visit: Yes Status: Suspected Assessment and plan: Plan for EP consult tomorrow. NPO after midnight tonight. (2) PAF (paroxysmal atrial fibrillation) Current Visit: Yes Status: Acute Assessment and plan: Back in atrial fib. On Card drip. Rate is better now. (3) Diabetes mellitus Current Visit: Yes Status: Chronic Assessment and plan: Continue accuchecks and coverage as needed. Qualifiers: Diabetes mellitus type: type 2 Diabetes mellitus complication status: with hyperglycemia Diabetes mellitus terminal press operator insulin use: without terminal press operator use Qualified Code(s): E11.65 - Type 2 diabetes mellitus with hyperglycemia (4) Hypertension Current Visit: No Status: Chronic Assessment and plan: Better controlled today. Continue as is for now. Qualifiers: Hypertension type: essential hypertension Qualified Code(s): I10 - Essential (primary) hypertension (5) HLD (hyperlipidemia) Current Visit: Yes Status: Chronic Assessment and plan: Continue home meds. Qualifiers: Hyperlipidemia type: mixed hyperlipidemia Qualified Code(s): E78.2 - Mixed hyperlipidemia (6) Hypothyroid Current Visit: Yes Status: Chronic Assessment and plan: Continue home meds. Qualifiers: Hypothyroidism type: acquired Qualified Code(s): E03.9 - Hypothyroidism, unspecified (7) CAD (coronary artery disease) Current Visit: Yes Status: Chronic Assessment and plan: Continue routine home meds. Qualifiers: Coronary Disease-Associated Artery/Lesion type: [place] artery [place] vs. transplanted heart: [place] heart Associated angina: without angina Qualified Code(s): I25.10 - Atherosclerotic heart disease of [place] coronary artery without angina pectoris - Subjective Interval history: Mr. Gipson is currently admitted for rapid atrial fibrillation. He was recently at [place] and was aristeo on beta lambert. He has converted to NSR. He remains moderate to high risk due to potential for worsening cardiac status. Mr Gipson had a 4 sec pause when he converted yesterday. Last evening he returned to rapid a fib and was placed back on Card drip. This AM he feels OK. No fever or chills. No CP or SOB. Needs pacemaker per cardiology. - Constitutional Vitals: Temp Pulse Resp BP Pulse Ox 97.6 F 79 15 113/55 97 07/08/17 11:30 07/08/17 11:30 07/08/17 11:30 07/08/17 11:30 07/08/17 11:30 General appearance: Present: cooperative, A&O X 3, pleasant, answers questions appropriately - Head Head exam: Present: normocephalic - Eye Eye exam: Present: EOMI, conjuntiva pink - ENT ENT exam: Present: mucous membranes moist - Respiratory Respiratory exam: Present: CTAB. Absent: rales, rhonchi, wheezes - Cardiovascular Cardiovascular exam: Present: irregular rhythm, tachycardia - GI/Abdominal GI/Abdominal exam: Present: soft. Absent: tenderness - Extremities Exam Extremities exam: Present: warm. Absent: tenderness - Neurological Exam Neurological exam: Present: alert, oriented X3, no focal deficits - Skin Skin exam: Present: warm. Absent: rash Internal Medicine: Result - Labs CBC & Chem 7: 07/08/17 05:23 07/08/17 05:23 Labs: Short CBC 07/08/17 Range/Units 05:23 WBC 7.1 (4.3-11.1) K/mcL Hgb 13.2 (12.9-16.9) g/dL Hct 38.1 (37.5-50.1) % Plt Count 155 (140-400) K/mcL Neutrophils # 4.1 (1.6-8.9) K/mcL BMP 07/08/17 05:23 Sodium 142 Potassium 3.5 Chloride 110 H Carbon Dioxide 25 BUN 22 Creatinine 1.14 Glucose 120 H Calcium 9.0 Liver Function 07/08/17 Range/Units 05:23 Total Bilirubin 1.1 D (0.2-1.2) mg/dL AST 13 (5-34) Units/L ALT 11 (0-55) Units/L Alkaline Phosphatase 87 (38-126) Units/L Albumin 3.3 L (3.5-5.0) g/dL - ABG Interpretation ABG results: PT/INR, D-dimer PT 12.6 Seconds (9.4-12.1) H 07/07/17 00:21 Consult Discharge Plan - Plan Referrals: Garcia Herrera MD [Primary Care Provider] -
--- NOTE | 2017-07-08 13:00 | Cardiology Progress Note ---
Date of Encounter: 07/08/17 Time of Encounter: 12:55 Assessment and Plan (1) PAF (paroxysmal atrial fibrillation) Current Visit: Yes Status: Acute PAF noted, multiple recent evaluations. Sinus yesterday, but returned to AF overnight. Pause noted with associated transient blindness. Suspect sick sinus syndrome. Recommend EP evaluation. Elevated CHADS-VASc on Eliquis. Will hold evening Eliquis and start Lovenox for any possible EP procedures. Continue PO CCB for now. Okay to hold diltiazem drip. (2) CAD (coronary artery disease) Current Visit: Yes Status: Chronic [place] CAD, prior NSTEMI 12/2016 s/p CLAY x to distal LAD. Troponins negative. No chest pain reported today. Recommend continue aspirin/Plavix ideally for one year since PCI. Counseled on risk of bleeding with triple therapy and to seek medical attention if any issues. Continue statin/ACEi/Imdur therapy. Qualifiers: Coronary Disease-Associated Artery/Lesion type: [place] artery [place] vs. transplanted heart: [place] heart Associated angina: without angina Qualified Code(s): I25.10 - Atherosclerotic heart disease of [place] coronary artery without angina pectoris Discussion w patient/family: The assessment and plan as outlined above was discussed with the patient and/or family members who expressed understanding and agreement. All questions were answered. Thank you for involving us in the care of your patient. Please call with any questions. Subjective Principal diagnosis: PAF Interval history: Patient returned to atrial fibrillation overnight, requiring a Cardizem drip. Yesterday, patient spontaneously converted to sinus rhythm during our conversation. This was preceded by 4 second pause with an associated transient loss of vision. Suspect patient has sick sinus syndrome. Today, does not report any new symptoms. Objective Vital Signs, Last 4 Hours Temp Pulse Resp BP Pulse Ox 07/08/17 11:30 97.6 F 79 15 113/55 97 General: Conversant, No Apparent Distress HEENT: Atraumatic, Normocephaly, Mucus Membranes Moist Neck: No JVD Cardiac: No Murmur, Other (Irregular rate and rhythm) Lungs: Normal Breath Sounds, No Wheeze, Rales, Rhonchi Neuro: Alert and responsive, No focal deficits noted Abdomen: Soft, Non-Tender Skin: No rashes noted on visualized skin Musculoskeletal: No Chest Wall Tenderness Extremities: No Clubbing, No Cyanosis, No Edema Results 07/08/17 05:23 07/08/17 05:23 Lab Results 07/08/17 07/08/17 07/08/17 05:23 05:23 05:23 WBC 7.1 Hgb 13.2 Hct 38.1 Plt Count 155 Sodium 142 Potassium 3.5 Chloride 110 H Carbon Dioxide 25 BUN 22 Creatinine 1.14 Glucose 120 H Calcium 9.0 Magnesium 2.1 Total Bilirubin 1.1 D AST 13 ALT 11 Alkaline Phosphatase 87 - Imaging and Cardiology Echo: report reviewed Consult Discharge Plan - Plan Referrals: Garcia Herrera MD [Primary Care Provider] -
[2017-07-08] MEDS: *HR* Enoxaparin 100 MG/ML SYRINGE SQ SCH (18:47)
[2017-07-09 05:00] LABS: Basophils % 0.5 %; Eosinophils # 0.2 K/mcL (0.0-0.6); Eosinophils % 3.6 %; Hemoglobin 12.5 g/dL (12.9-16.9); Immature Granulocytes % 0.2 % (0-4); Lymphocytes # 2.4 K/mcL (0.6-4.6); Lymphocytes % 36.9 %; Mean Corpuscular HGB Conc 33.8 g/dL (31.6-35.5); Mean Corpuscular Hemoglobin 30.1 pg (28.0-33.3); Mean Corpuscular Volume 89.2 fL (83.0-100.0); Mean Platelet Volume 10.8 fL (9.4-12.4); Monocytes # 0.5 K/mcL (0.0-1.3); Monocytes % 7.8 %; Neutrophils # 3.3 K/mcL (1.6-8.9); Platelet Count 155 K/mcL (140-400); Red Blood Count 4.15 M/mcL (4.19-5.50); Red Cell Distribution Width 14.6 % (11.5-14.5)
[2017-07-09 05:16] LABS: Albumin 3.3 g/dL (3.5-5.0); Albumin/Globulin Ratio 1.1 (1.1-2.2); Bilirubin,Total 0.8 mg/dL (0.2-1.2); Calcium 8.9 mg/dL (8.6-10.8); Magnesium 2.1 mg/dL (1.6-2.6); Potassium 3.7 mEq/L (3.5-4.5); Total Protein 6.3 g/dL (6.0-8.3)
[2017-07-09] MEDS: *HR* Enoxaparin 100 MG/ML SYRINGE SQ SCH ×2 (05:49→18:04)
[2017-07-09] MEDS: Insulin LISPRO 300 UNITS/3 ML VIAL SQ SCH ×4 (09:24→22:16)
[2017-07-09] MEDS: Aspirin Enteric Coated 81 MG Tablet PO SCH (09:48)
[2017-07-09] MEDS: Cholecalciferol (D-3) 1,000 UNIT TABLET PO SCH (09:48)
[2017-07-09] MEDS: Gabapentin 300 MG CAPSULE PO SCH ×2 (09:48→22:08)
[2017-07-09] MEDS: Finasteride 5 MG TABLET PO SCH (09:48)
[2017-07-09] MEDS: Isosorbide MONOnitrate (24 HR) 30 MG TAB.ER.24H PO SCH (09:48)
[2017-07-09] MEDS: Diltiazem CD (24hr) 120 MG CAPSULE PO SCH (09:48)
[2017-07-09] MEDS: Lisinopril 20 MG TABLET PO SCH (09:49)
--- NOTE | 2017-07-09 11:40 | Internal Med Progress Note ---
<Aditya Garcia - Last Filed: 07/09/17 14:16> Date of Encounter: 07/09/17 Time of Encounter: 09:15 - Assessment and plan (1) Sick sinus syndrome Current Visit: Yes Status: Suspected Assessment and plan: Plan for EP consult tomorrow. NPO after midnight tonight. Patient has been having episodes of tachycardia and bradycardia in an irregular fashion. Janak also had an unusual pause in his heart rate of 4 seconds. He was seen by cardiology and then underwent a EP consult with plans to place a pacemaker. Per the EP note, that is planned for tomorrow. EP consulted and appreciate their assistance Cardiology planning on starting sotalol, patient will need continued monitoring NPO after midnight Continue to monitor via telemetry (2) PAF (paroxysmal atrial fibrillation) Current Visit: Yes Status: Acute Assessment and plan: Patient has been having PAF. He is on Eliquis normally, unfortunately, patient' s SSS has been making rate control difficult. Currently has controlled heart rate with Eliquis being held for planned pacemaker palcement. Will continue to monitor via telemetry Plan as above (3) Diabetes mellitus Current Visit: Yes Status: Chronic Assessment and plan: Continue accuchecks and low-dose insulin sliding scale Qualifiers: Diabetes mellitus type: type 2 Diabetes mellitus complication status: with hyperglycemia Diabetes mellitus longterm insulin use: without intermediate frame tender use Qualified Code(s): E11.65 - Type 2 diabetes mellitus with hyperglycemia (4) BRIAN (acute kidney injury) Current Visit: Yes Status: Acute Assessment and plan: Patient has elevation in SCr and BUN with elevation >20. Patient has been NPO since midnight last night in anticipation of possible pacemaker placement. Likely elevations in serum creatinine and BUN represent dehydration from lack of oral input and lack of supplemental fluids. We will continue to monitor renal function with daily labs We will start normal saline at 75 mL an hour (5) Hypertension Current Visit: No Status: Chronic Assessment and plan: Patient's last blood pressure was 139/53. All blood pressures the last 24 hours have shown decent control. We will continue to monitor with regular vital checks Continue by mouth diltiazem and lisinopril Qualifiers: Hypertension type: essential hypertension Qualified Code(s): I10 - Essential (primary) hypertension (6) HLD (hyperlipidemia) Current Visit: Yes Status: Chronic Assessment and plan: Stable Continue home medications Qualifiers: Hyperlipidemia type: mixed hyperlipidemia Qualified Code(s): E78.2 - Mixed hyperlipidemia (7) Hypothyroid Current Visit: Yes Status: Chronic Assessment and plan: TSH checked on 07/07/17 was 4.075. Current dose of levothyroxine appears to be adequate Continue home dose levothyroxine Qualifiers: Hypothyroidism type: acquired Qualified Code(s): E03.9 - Hypothyroidism, unspecified (8) CAD (coronary artery disease) Current Visit: Yes Status: Chronic Assessment and plan: Stable Continue home medications Qualifiers: Coronary Disease-Associated Artery/Lesion type: [place] artery [place] vs. transplanted heart: [place] heart Associated angina: without angina Qualified Code(s): I25.10 - Atherosclerotic heart disease of [place] coronary artery without angina pectoris - Subjective Interval history: Patient reports he is doing well today, but does state that she is irritated because he has not been able to eat or drink anticipation of potential procedure. He denies having any feeling of palpitations, tachycardia, shortness of breath, lightheadedness, or chest pain. He states it is breathing well without shortness of breath or cough. - Constitutional Vitals: Temp Pulse Resp BP Pulse Ox 98.5 F 59 15 139/53 95 07/09/17 07:12 07/09/17 07:12 07/09/17 07:12 07/09/17 07:12 07/09/17 09:00 General appearance: Present: cooperative, A&O X 3, pleasant, answers questions appropriately Exam: General: Cooperative, pleasant, no acute distress, alert and oriented 3, answers questions appropriately HEENT: Normocephalic, atraumatic, neck supple, trachea midline, Conjunctiva pink , sclera anicteric Respiratory: No accessory muscle usage, CTA b/l Cardiovascular: Irregularly irregular, S1 and S2 present, no murmurs/rubs/ gallops/clicks appreciated Extremities: No calf tenderness, no pitted edema, warm, lower extremity pulses palpable and symmetrical Neurological: Alert and oriented 3, no facial droop, no focal deficits Skin: Dry, intact, normal color Internal Medicine: Result - Labs CBC & Chem 7: 07/09/17 04:45 07/09/17 04:45 Labs: Short CBC 07/09/17 Range/Units 04:45 WBC 6.4 (4.3-11.1) K/mcL Hgb 12.5 L (12.9-16.9) g/dL Hct 37.0 L (37.5-50.1) % Plt Count 155 (140-400) K/mcL Neutrophils # 3.3 (1.6-8.9) K/mcL BMP 07/09/17 04:45 Sodium 144 Potassium 3.7 Chloride 112 H Carbon Dioxide 22 BUN 34 H D Creatinine 1.45 H Glucose 126 H Calcium 8.9 Liver Function 07/09/17 Range/Units 04:45 Total Bilirubin 0.8 (0.2-1.2) mg/dL AST 12 (5-34) Units/L ALT 10 (0-55) Units/L Alkaline Phosphatase 83 (38-126) Units/L Albumin 3.3 L (3.5-5.0) g/dL - ABG Interpretation ABG results: PT/INR, D-dimer PT 12.6 Seconds (9.4-12.1) H 07/07/17 00:21 Consult Discharge Plan - Plan Referrals: Garcia Herrera MD [Primary Care Provider] - <Enrique Perdomo - Last Filed: 07/09/17 17:57> Date of Encounter: 07/09/17 - Assessment and plan (1) Sick sinus syndrome Current Visit: Yes Status: Suspected (2) PAF (paroxysmal atrial fibrillation) Current Visit: Yes Status: Acute (3) Diabetes mellitus Current Visit: Yes Status: Chronic Qualifiers: Diabetes mellitus type: type 2 Diabetes mellitus complication status: with hyperglycemia Diabetes mellitus longterm insulin use: without longterm use Qualified Code(s): E11.65 - Type 2 diabetes mellitus with hyperglycemia (4) Hypertension Current Visit: No Status: Chronic Qualifiers: Hypertension type: essential hypertension Qualified Code(s): I10 - Essential (primary) hypertension (5) HLD (hyperlipidemia) Current Visit: Yes Status: Chronic Qualifiers: Hyperlipidemia type: mixed hyperlipidemia Qualified Code(s): E78.2 - Mixed hyperlipidemia (6) Hypothyroid Current Visit: Yes Status: Chronic Qualifiers: Hypothyroidism type: acquired Qualified Code(s): E03.9 - Hypothyroidism, unspecified (7) CAD (coronary artery disease) Current Visit: Yes Status: Chronic Qualifiers: Coronary Disease-Associated Artery/Lesion type: [place] artery [place] vs. transplanted heart: [place] heart Associated angina: without angina Qualified Code(s): I25.10 - Atherosclerotic heart disease of [place] coronary artery without angina pectoris - Constitutional Vitals: Temp Pulse Resp BP Pulse Ox 98.0 F 61 15 127/67 98 07/09/17 15:53 07/09/17 15:53 07/09/17 15:53 07/09/17 15:53 07/09/17 15:53 Internal Medicine: Result - Labs CBC & Chem 7: 07/09/17 04:45 07/09/17 04:45 Labs: Short CBC 07/09/17 Range/Units 04:45 WBC 6.4 (4.3-11.1) K/mcL Hgb 12.5 L (12.9-16.9) g/dL Hct 37.0 L (37.5-50.1) % Plt Count 155 (140-400) K/mcL Neutrophils # 3.3 (1.6-8.9) K/mcL BMP 07/09/17 04:45 Sodium 144 Potassium 3.7 Chloride 112 H Carbon Dioxide 22 BUN 34 H D Creatinine 1.45 H Glucose 126 H Calcium 8.9 Liver Function 07/09/17 Range/Units 04:45 Total Bilirubin 0.8 (0.2-1.2) mg/dL AST 12 (5-34) Units/L ALT 10 (0-55) Units/L Alkaline Phosphatase 83 (38-126) Units/L Albumin 3.3 L (3.5-5.0) g/dL - ABG Interpretation ABG results: PT/INR, D-dimer PT 12.6 Seconds (9.4-12.1) H 07/07/17 00:21 - Attending Attestation I examined this patient and my medical decision-making was reviewed with the Resident Physician on 07/09/17. I agree with the documented findings, disposition and treatment plan as described except to the extent set forth below. Mr. Gipson is currently admitted for sick sinus syndrome. He remains moderate to high risk due to potential for worsening cardiac status. Mr Gipson is awaiting potential pacer today. No fever or chill. NPO so is hungry. No GI issues. Exam Alert. Comfortable Heart irreg - not tachy Lungs clear Abd soft No edema I/P 1. Sick sinus syndrome 2. atrial fib Further diagnoses and plan as above.
--- NOTE | 2017-07-09 11:45 | Electrophysiology Consult Note ---
<Tan Clark - Last Filed: 07/09/17 12:44> Date of Encounter: 07/09/17 Time of Encounter: 10:00 Assessment and Plan (1) Sick sinus syndrome Current Visit: Yes Status: Acute Patient having intermittent atrial fibrillation with RVR and sinus bradycardia, symptomatic sinus pauses up to 4 seconds long, and second degree type one AV block ( Wenckebach.) PPM recommended. NPO after midnight for procedure tomorrow. (2) Atrial fibrillation Current Visit: Yes Status: Chronic Electrophysiology: H/o PAF on eliquis . Recurrent admission for atrial fibrillation with RVR. Difficult to treat secondary to sinus bradycardia and sinus pauses up to 4 seconds long. Eliquis on hold for possible EP study/ PPM. Discussed with Dr. Frantz Philippe. Prior to PPM recommend starting anti-arrhythmic therapy with sotalol. Monitor daily EKG. Will need 5 doses while monitored in the hospital. Qualifiers: Atrial fibrillation type: paroxysmal Qualified Code(s): I48.0 - Paroxysmal atrial fibrillation Discussion w patient/family: The assessment and plan as outlined above was discussed with the patient and/or family members who expressed understanding and agreement. All questions were answered. Thank you for involving us in the care of your patient. Please call with any questions. History of Present Illness Consult date: 07/09/17 Requesting physician: Ryan Ford Consult reason: Sinus node dysfunction Chief complaint: Syncopal episode, multiple presyncoapl evants. History of present illness: Mr. Gipson is a 86 year old male Mr. Gipson is a 86 year old male with a history of CAD, previous NSTEMI 12/2016 s/p CLAY x1 to RCA, PAF on eliquis. He presented to the ED after recently being hospitalized with atrial fibrillation with RVR. He c/o recurrent tachycardia. He reports having a cardioversion during his last admission. C/o multiple syncopal and presyncopal episodes over the last 2-3 months. Patient experienced a witness presyncopal event by Dr. Ford. He c/o transient loss of vision. He was noted to have a 4 second pause when converting from atrial fibrillation to NSR. He c/o frequent similar events. he often has loss of bladder and vision. Denies SOB or chest pain. Review of records from [facility] shows that Mr. Gipson had a 4 second pause while he was sleeping. Metoprolol was discontinued per patient. Patient was initially in atrial fibrillation with RVR and converted spontaneously to NSR. Previous cardiac testing: [facility] 12/23/2016: Left main normal. LAD ostial 40-50% stenosis, mid 50-60% stenosis. D1 90% stenosis. Circumflex distal 50% stenosis. RCA distal 99% stenosis. CLAY placed in distal RCA on 12/25/2016 after aspirin desensitization performed. TTE 12/25/2016: LVEF 55%. Mild concentric LVH. Mild aortic, mitral, tricuspid regurgitation. No pulmonary hypertension. Past Med Surg Social Fam HX - Past Medical History Medical history: arthritis, atrial fibrillation, cardiomyopathy, diabetes, hyperlipidemia, hypertension, myocardial infarction (December 2016 w/stent x1), thyroid disease, other Psychiatric history: no psych history - Past Surgical History Surgical History: no surgical history - Social History Smoking Status: Former smoker Packs per day: 1 PPD - Reports quitting 30 years ago Smokeless Tobacco Status: No Alcohol use: none Drug use: none - Family History Father Race: Family Member Ethnicity: Non- Living Status: Age at : 85 Cause of : Cancer Hx Family Cancer: Yes Mother Race: Family Member Ethnicity: Non- Living Status: Age at : 79 Cause of : Car accident Brother Adopted: No Race: Family Member Ethnicity: Non- Living Status: Age at : 81 Cause of : CAD Hx Family Cardiac Disorders: Yes (CAD, AICD) Hx Family Respiratory Disorders: Yes Hx Family Cancer: Yes Hx Family GI Disorders: No Hx Family Endocrine Disorder: No Hx Family Neuromuscular Disorders: No Hx Family Neurologic Disorders: No Hx Family HEENT Disorders: No Hx Family Autoimmune Disorders: No Sister Race: Family Member Ethnicity: Non- Living Status: Age at : 62 Cause of : Cervical cancer Hx Family Cancer: Yes (Cervical) Medications and Allergies Finasteride [Proscar] 5 mg PO DAILY 06/08/15 [History] Tramadol HCl [Ultram] 50 - 100 mg PO TID PRN 06/08/15 [History] metFORMIN [Glucophage] 500 mg PO BIDWM 06/08/15 [History] Cholecalciferol (D-3) [Vitamin D] 1,000 unit PO DAILY 12/23/16 [History] Levothyroxine [Synthroid] 75 mcg PO QAM 12/23/16 [History] Aspirin [Lo-Dose Aspirin EC] 81 mg PO DAILY #30 tablet. 12/26/16 [Rx] Clopidogrel [Plavix] 75 mg PO DAILY 03/03/17 [History] Gabapentin [Neurontin] 600 mg PO BID 03/03/17 [History] Nitroglycerin [Nitrostat] 0.4 mg SL Q5M PRN #1 vial 03/04/17 [Rx] Apixaban [Eliquis] 5 mg PO HS 06/30/17 [History] Atorvastatin Calcium [Lipitor] 80 mg PO HS 07/06/17 [History] Isosorbide MONOnitrate (24 HR) [Imdur] 30 mg PO DAILY 07/06/17 [History] Lisinopril [Zestril] 40 mg PO DAILY #30 tablet 07/06/17 [Rx] 3 Allergy/AdvReac Type Severity Reaction Status Date / Time Penicillins [PCN] Allergy Difficulty Verified 03/20/17 10:09 Breathing All Systems Review: A 10-system review of systems was performed and is negative for pertinent findings except as documented above in the HPI. Physical Examination Vital Signs, Last 4 Hours Pulse Ox 07/09/17 09:00 95 General: Conversant, No Apparent Distress HEENT: Atraumatic, Normocephaly, Mucus Membranes Moist Neck: No JVD, Normal carotid pulses Cardiac: Reg Rate and Rhythm, Normal S1 and S2, No Murmur Lungs: Normal Breath Sounds, No Wheeze, Rales, Rhonchi Neuro: Alert and responsive, No focal deficits noted Abdomen: Soft, Non-Tender Skin: No rashes noted on visualized skin Musculoskeletal: No Chest Wall Tenderness Extremities: No Clubbing, No Cyanosis, No Edema, Normal Pulses Results 07/09/17 04:45 07/09/17 04:45 Lab Results 07/09/17 07/09/17 04:45 04:45 WBC 6.4 Hgb 12.5 L Hct 37.0 L Plt Count 155 Sodium 144 Potassium 3.7 Chloride 112 H Carbon Dioxide 22 BUN 34 H D Creatinine 1.45 H Glucose 126 H Calcium 8.9 Magnesium 2.1 Total Bilirubin 0.8 AST 12 ALT 10 Alkaline Phosphatase 83 - Imaging and Cardiology Echo: report reviewed Cardiac cath: report reviewed - EKG Interpretation EKG results cardiology: personally reviewed (atrial fibrillation with RVR, HR 128) Consult Discharge Plan - Plan Referrals: Garcia Herrera MD [Primary Care Provider] - <Frantz Philippe - Last Filed: 07/09/17 15:27> Date of Encounter: 07/09/17 - Attending Attestation I have personally performed a face to face evaluation on this patient. I have reviewed and agree with the care plan. History and Exam by me shows: Recurrent PAF, symptomatic bradycardia. Would recommend antiarrythmic and pacemaker. Assessment and Plan Discussion w patient/family: The assessment and plan as outlined above was discussed with the patient and/or family members who expressed understanding and agreement. All questions were answered. Thank you for involving us in the care of your patient. Please call with any questions. History of Present Illness History of present illness: Mr. Gipson is a 86 year old male All Systems Review: A 10-system review of systems was performed and is negative for pertinent findings except as documented above in the HPI. Results 07/09/17 04:45 07/09/17 04:45 Lab Results 07/09/17 07/09/17 04:45 04:45 WBC 6.4 Hgb 12.5 L Hct 37.0 L Plt Count 155 Sodium 144 Potassium 3.7 Chloride 112 H Carbon Dioxide 22 BUN 34 H D Creatinine 1.45 H Glucose 126 H Calcium 8.9 Magnesium 2.1 Total Bilirubin 0.8 AST 12 ALT 10 Alkaline Phosphatase 83
[2017-07-09] MEDS: 0.9 % Sodium Chloride 1,000 ML IVC SCH (16:15)
--- NOTE | 2017-07-09 17:07 | Electrocardiograph Report ---
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
--- NOTE | 2017-07-09 17:09 | Electrocardiograph Report ---
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
[2017-07-10] MEDS: 0.9 % Sodium Chloride 1,000 ML IVC SCH (05:54)
[2017-07-10] MEDS: *HR* Enoxaparin 100 MG/ML SYRINGE SQ SCH (05:57)
[2017-07-10 06:24] LABS: Basophils % 0.6 %; Eosinophils # 0.3 K/mcL (0.0-0.6); Hematocrit 39.5 % (37.5-50.1); Hemoglobin 13.5 g/dL (12.9-16.9); Immature Granulocytes % 0.3 % (0-4); Lymphocytes # 2.3 K/mcL (0.6-4.6); Mean Corpuscular HGB Conc 34.2 g/dL (31.6-35.5); Mean Corpuscular Hemoglobin 30.1 pg (28.0-33.3); Mean Platelet Volume 10.8 fL (9.4-12.4); Monocytes # 0.4 K/mcL (0.0-1.3); Neutrophils # 3.3 K/mcL (1.6-8.9); Platelet Count 170 K/mcL (140-400); Red Blood Count 4.49 M/mcL (4.19-5.50); Red Cell Distribution Width 14.3 % (11.5-14.5); Segmented Neutrophils % 52.1 %
[2017-07-10 06:38] LABS: Alanine Aminotransferase 12 Units/L (0-55); Albumin 3.4 g/dL (3.5-5.0); Alkaline Phosphatase 93 Units/L (38-126); Aspartate Amino Transferase 16 Units/L (5-34); BUN/Creatinine Ratio 22 (6-26); Bilirubin,Total 0.9 mg/dL (0.2-1.2); Calcium 8.9 mg/dL (8.6-10.8); Carbon Dioxide 22 mEq/L (19-29); Chloride 113 mEq/L (98-109); Globulin 3.3 g/dL (2.4-3.5); Glucose 113 mg/dL (70-99); Osmolality,Calculated 298 (280-300); Potassium 3.9 mEq/L (3.5-4.5); Sodium 142 mEq/L (136-145); Total Protein 6.7 g/dL (6.0-8.3); eGFR For African Americans > 60 (> 60); eGFR For Non-African Americans > 60 (> 60)
[2017-07-10 06:40] LABS: Blood Urea Nitrogen 22 mg/dL (8-26)
[2017-07-10 06:45] VITALS: BP 134/72
[2017-07-10] MEDS: Insulin LISPRO 300 UNITS/3 ML VIAL SQ SCH (08:05)
[2017-07-10] MEDS: Gabapentin 300 MG CAPSULE PO SCH (08:06)
[2017-07-10] MEDS: Finasteride 5 MG TABLET PO SCH (08:07)
[2017-07-10] MEDS: Cholecalciferol (D-3) 1,000 UNIT TABLET PO SCH (08:07)
[2017-07-10] MEDS: Diltiazem CD (24hr) 120 MG CAPSULE PO SCH (08:07)
[2017-07-10] MEDS: Aspirin Enteric Coated 81 MG Tablet PO SCH (08:07)
[2017-07-10] MEDS: Isosorbide MONOnitrate (24 HR) 30 MG TAB.ER.24H PO SCH (08:07)
[2017-07-10] MEDS: Lisinopril 20 MG TABLET PO SCH (08:07)
--- NOTE | 2017-07-10 09:58 | Event Note ---
Date of Encounter: 07/10/17 Time of Encounter: 09:15 - Cardiology Event Note Patient scheduled for PPM placement today for symptomatic bradycardia. Patient upset that his procedure has not started yet. He was taking his IV out his self when I entered the room. I attempted to re-assure patient that the procedure was today and he became more angry and started yelling. I called his who is listed as next of kin. states that she would not be able to console him once he is angry and if he wanted to leave he would. I apologized that patient was upset. Patient insisted that he leave AMA. Hospitalist was at bedside to discuss further with patient. Patient will not be able to continue sotalol d/t inability to monitor first 5 doses. He will continue cardizem 120 mg daily and restart eliquis. He was currently NSR on telemetry. Out patient f/u will be made if patient agrees.
--- NOTE | 2017-07-10 10:09 | Discharge Summary ---
<Aditya Garcia - Last Filed: 07/10/17 13:01> Date of Encounter: 07/10/17 Time of Encounter: 09:15 - Discharge Diagnosis (1) Sick sinus syndrome Priority: Primary Status: Suspected (2) PAF (paroxysmal atrial fibrillation) Priority: Primary Status: Acute (3) Diabetes mellitus Priority: Primary Status: Chronic Qualifiers: Diabetes mellitus type: type 2 Diabetes mellitus complication status: with hyperglycemia Diabetes mellitus prison insulin use: without prison use Qualified Code(s): E11.65 - Type 2 diabetes mellitus with hyperglycemia (4) BRIAN (acute kidney injury) Priority: Primary Status: Acute (5) Hypertension Priority: Primary Status: Chronic Qualifiers: Hypertension type: essential hypertension Qualified Code(s): I10 - Essential (primary) hypertension (6) HLD (hyperlipidemia) Priority: Primary Status: Chronic Qualifiers: Hyperlipidemia type: mixed hyperlipidemia Qualified Code(s): E78.2 - Mixed hyperlipidemia (7) Hypothyroid Priority: Primary Status: Chronic Qualifiers: Hypothyroidism type: acquired Qualified Code(s): E03.9 - Hypothyroidism, unspecified (8) CAD (coronary artery disease) Priority: Primary Status: Chronic Qualifiers: Coronary Disease-Associated Artery/Lesion type: [place] artery [place] vs. transplanted heart: [place] heart Associated angina: without angina Qualified Code(s): I25.10 - Atherosclerotic heart disease of [place] coronary artery without angina pectoris - Discharge Medications Prescriptions: Diltiazem HCl [Diltiazem ER] 120 mg PO DAILY #30 cap.er.deg Home Medications: Finasteride [Proscar] 5 mg PO DAILY 06/08/15 [History] Tramadol HCl [Ultram] 50 - 100 mg PO TID PRN 06/08/15 [History] metFORMIN [Glucophage] 500 mg PO BIDWM 06/08/15 [History] Cholecalciferol (D-3) [Vitamin D] 1,000 unit PO DAILY 12/23/16 [History] Levothyroxine [Synthroid] 75 mcg PO QAM 12/23/16 [History] Aspirin [Lo-Dose Aspirin EC] 81 mg PO DAILY #30 tablet. 12/26/16 [Rx] Clopidogrel [Plavix] 75 mg PO DAILY 03/03/17 [History] Gabapentin [Neurontin] 600 mg PO BID 03/03/17 [History] Nitroglycerin [Nitrostat] 0.4 mg SL Q5M PRN #1 vial 03/04/17 [Rx] Apixaban [Eliquis] 5 mg PO HS 06/30/17 [History] Atorvastatin Calcium [Lipitor] 80 mg PO HS 07/06/17 [History] Isosorbide MONOnitrate (24 HR) [Imdur] 30 mg PO DAILY 07/06/17 [History] Lisinopril [Zestril] 40 mg PO DAILY #30 tablet 07/06/17 [Rx] Diltiazem HCl [Diltiazem ER] 120 mg PO DAILY #30 cap.er.deg 07/10/17 [Rx] Allergies/Adverse Reactions: 3 Allergy/AdvReac Type Severity Reaction Status Date / Time Penicillins [PCN] Allergy Difficulty Verified 03/20/17 10:09 Breathing Procedures/tests Complete & Pending: Procedures Performed prior 72 hours Category Date Time Status ECG 12 lead ECG [ECG] Routine Y 07/07/17 17:29 Completed Date of admission: 07/06/17 22:41 Primary care physician: Garcia Herrera MD Consults: 07/06/17 22:45 Consult to Tumbler Drier Operator [CONS] Routine Reason for SW Consult: Please assess patient for possible home needs for post -discharge planning. 07/06/17 22:52 Consult to Cardiology [CONS] Routine Comment: Consulting Provider: Leslie Reyes Reason for Consult: Pt. has 3-day hx of Afib w/RVR. Was seen at [facility] and discharged then returned after RVR returned. Hx of chronic afib, cardiomyopathy, previous AR w/stent x1, HTN, HLD, and diabetes. Previous smoker (1PPD) who quit 30 yrs ago. Echo on 12/25/16 shows LVEF of 55%, mild concentric hypertrophy of LV, mild diastolic LV dysfunction; mild aortic/mitral/tricuspid regurgitation. Initial trop 0.01. Placed on cardizem drip. HR previously >120, now 70's. Call Completed: No 07/08/17 13:04 Consult to Electrophysiology (EP) [CONS] Routine Consulting Provider: Lamont Reyes Reason for Consult: PAF, possible sick sinus syndrome Call Completed: No Discharging clinician: Aditya Garcia Anticipated date of discharge: 07/10/17 - Patient Status Disposition: Left Against Medical Advice Condition: Fair Functional capacity at discharge: independent ambulation Overall status at discharge: patient is not back to baseline - Discharge Instructions Follow Up With: Garcia Herrera MD [Primary Care Provider] - Additional Instructions: Please return to the emergency room if return of symptoms, greater syncope, development of chest pain, or development of shortness of breath. Take all medications as prescribed: Cardizem extended release 120 mg daily Continue other home medications Follow-up with her PCP in 1-2 weeks Follow-up with cardiology in 1-2 weeks - Diet and Activity Activity: increase activity as tolerated Diet: low fat, low cholesterol, low salt diet Interval History: Patient is very upset this morning about not having the procedure done sooner. We seen, he is discussing his plan to leave AMA with Darin Clark and taking his own IV out. It was repeatedly recommended to him that he stay for both the procedure and to finish his initiation of Sotalol, but he refused and left AMA. Hospital course: Mr. Gipson is a 86 year old male with past medical history of a. fib, cardiomyopathy, diabetes, htn, hld, and CAD who presented to the [facility] ER on 07/05 with complaint of chest pain and racing heart and transferred to [facility] on 07/06/17. He was found to be in atrial fibrillation with RVR at that time and placed on a cardizem drip with improvement in his rate achieved. He was seen by cardiology for his atrial fibrillation, but in the course of that initial cardiology encounter he had a 4 second pause and became symptomatic. Cardiology recommended that he have a pacemaker placed because of suspected sick sinus syndrome. He was seen by electrophysiology who were planning on placing a pacemaker on 07/10/17. Patient however became very inpatient and decided that if he was not going to be seen immediately that he was going to leave. He was counseled multiple times by his nurse, resident, cardiology nurse practitioner, and electro-textile screen maker but he was adamant about leaving AMA. He was warned that this was a bad idea and that she could have or episodes of syncope or could potentially if fatal arrhythmia occurred. The patient was completely oriented when making his decision. The patient's was called he stated that it was impossible to stop him when he got like this. Despite these warnings, patient decided to leave AGAINST MEDICAL ADVICE anyway. - Time Spent with Patient Total time spent providing and/or coordinating discharge services: - Constitutional Vitals: Temp Pulse Resp BP Pulse Ox 97.4 F L 86 16 134/72 96 07/10/17 06:42 07/10/17 06:42 07/10/17 06:42 07/10/17 06:42 07/10/17 05:15 General appearance: Present: cooperative, A&O X 3, pleasant, answers questions appropriately Exam: General: Agitated, angry, did not allow much exam, no acute distress, alert and oriented 3 HEENT: Normocephalic, atraumatic, Conjunctiva pink, sclera anicteric Respiratory: No accessory muscle usage, clear to auscultation bilaterally, no wheezes/rhonchi/rales appreciated Cardiovascular: Irregular rhythm, S1 and S2 present, no murmurs/rubs/gallops/ clicks appreciated Neurological: Alert and oriented 3, no facial droop, no focal deficits <JusticeEvelia - Last Filed: 07/10/17 18:48> Date of Encounter: 07/10/17 Procedures/tests Complete & Pending: Procedures Performed prior 72 hours Category Date Time Status ECG 12 lead ECG [ECG] Routine Y 07/09/17 16:21 Completed ECG 12 lead ECG [ECG] Routine Y 07/10/17 08:35 Completed Date of admission: 07/06/17 22:41 Primary care physician: Garcia Herrera MD Consults: 07/06/17 22:45 Consult to Tumbler Drier Operator [CONS] Routine Reason for SW Consult: Please assess patient for possible home needs for post -discharge planning. 07/06/17 22:52 Consult to Cardiology [CONS] Routine Comment: Consulting Provider: Cardiology Amy Reason for Consult: Pt. has 3-day hx of Afib w/RVR. Was seen at [facility] and discharged then returned after RVR returned. Hx of chronic afib, cardiomyopathy, previous AR w/stent x1, HTN, HLD, and diabetes. Previous smoker (1PPD) who quit 30 yrs ago. Echo on 12/25/16 shows LVEF of 55%, mild concentric hypertrophy of LV, mild diastolic LV dysfunction; mild aortic/mitral/tricuspid regurgitation. Initial trop 0.01. Placed on cardizem drip. HR previously >120, now 70's. Call Completed: No 07/08/17 13:04 Consult to Electrophysiology (EP) [CONS] Routine Consulting Provider: Electrophysiology Amy Reason for Consult: PAF, possible sick sinus syndrome Call Completed: No Hospital course: Mr. Gipson is a 86 year old male - Time Spent with Patient Total time spent providing and/or coordinating discharge services: - Constitutional Vitals: Temp Pulse Resp BP Pulse Ox 97.4 F L 86 16 134/72 96 07/10/17 06:42 07/10/17 06:42 07/10/17 06:42 07/10/17 06:42 07/10/17 05:15 - Attending Attestation Pt left with AMA before I have chance to see him. I have discussed with resident physician Dr Garcia regarding this case. Agree with the documentation.
--- NOTE | 2017-07-11 09:04 | Electrocardiograph Report ---
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
--- NOTE | 2017-07-11 16:26 | Electrocardiograph Report ---
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
== END 2017-07-10 09:56 | disposition left against medical advice (07) | DRG 309 ==
LOC: 2NENU → SUATTDRO 22:41
PROVIDERS: ADMIT Pediatrics; ATTEND Internal Medicine

== ENCOUNTER 2018-01-16 15:46 | Inpatient (IN) ==
[2018-01-16] MEDS ORDERED: Dextrose Gel 15 GM/37.5 ML TUBE PO PRN ×2 (20:51)
[2018-01-16] MEDS ORDERED: *HR* Dextrose 50 % in Water (Syg) 50 ML SYRINGE IVP PRN (20:51)
[2018-01-16] MEDS ORDERED: D5% in Water 1,000 ML IVC PRN (20:51)
[2018-01-16] MEDS ORDERED: Naloxone 0.4 MG/ML INJ IVP PRN (21:04)
[2018-01-16] MEDS ORDERED: Nitroglycerin 0.4 MG TAB.SUBL SL PRN (21:08)
[2018-01-16] MEDS ORDERED: Nitroglycerin 25 MG/250 ML INFUS..BTL IVC SCH (21:15)
[2018-01-16 21:35] LABS: Estimated Average Glucose 126 mg/dl
[2018-01-16] MEDS: Insulin LISPRO 300 UNITS/3 ML VIAL SQ SCH (21:54)
[2018-01-16] MEDS ORDERED: Furosemide 40 MG/4 ML VIAL IVP ONE (22:05)
[2018-01-16] MEDS: Gabapentin 300 MG CAPSULE PO SCH (22:36)
[2018-01-16] MEDS: Apixaban 5 MG TABLET PO SCH (22:36)
[2018-01-17] MEDS ORDERED: Acetaminophen 325 MG TABLET PO PRN (01:35)
[2018-01-17 05:15] LABS: Basophils % 0.3 %; Eosinophils # 0.2 K/mcL (0.0-0.6); Hemoglobin 11.5 g/dL (12.9-16.9); Immature Granulocytes % 0.3 % (0-4); Lymphocytes # 1.3 K/mcL (0.6-4.6); Lymphocytes % 21.7 %; Mean Corpuscular HGB Conc 33.8 g/dL (31.6-35.5); Mean Corpuscular Hemoglobin 30.7 pg (28.0-33.3); Mean Corpuscular Volume 90.9 fL (83.0-100.0); Mean Platelet Volume 10.5 fL (9.4-12.4); Monocytes # 0.5 K/mcL (0.0-1.3); Monocytes % 7.6 %; Platelet Count 131 K/mcL (140-400); Red Blood Count 3.74 M/mcL (4.19-5.50); Segmented Neutrophils % 67.1 %
[2018-01-17 05:36] LABS: BUN/Creatinine Ratio 23 (6-26); Blood Urea Nitrogen 25 mg/dL (8-23); Calcium 8.7 mg/dL (8.6-10.3); Carbon Dioxide 26 mEq/L (23-29); Chloride 107 mEq/L (98-107); Glucose 125 mg/dL (70-105); Osmolality,Calculated 302 (280-300); Potassium 3.3 mEq/L (3.5-5.1); Sodium 143 mEq/L (136-145); eGFR For African Americans > 60 (> 60); eGFR For Non-African Americans > 60 (> 60)
--- NOTE | 2018-01-17 06:39 | Internal Med History&Physical ---
<Aashish Apple - Last Filed: 01/17/18 06:37> Date of Encounter: 01/17/18 Time of Encounter: 20:11 Internal Medicine - H&P: HPI Chief complaint: SOB/elevated BP Admitted From: Home Plans for Post Hospital Care: Home History of present illness: Mr. Gipson is a 87 year old male w/ pmh of CAD w/ CLAY x3 in RCA, afib, cardiomyopathy, HTN, hld, t2dm, hypothyroid presented to [facility] after having worsening SOB on exertion at home and his home nurse took his BP SBP ~200's, [facility] then transferred patient to [facility]. Patient has had SOB on exertion for the last couple of years, but recently has increased, he has been using his wifes home O2 for symptomatic treatment which helps. Patient states that he is able to complete normal tasks such as walking to his mailbox to get his mail usually without SOB. Patient does not follow strict cardiac diet, and admits to drinking a lot of water and eating salty foods like ham but does not add salt to his food. At [facility], patient was given 40 IV lasix, and he urinated "2L". Patient denies chest pain, SOB at rest, orthopnea, PND, nausea/vomiting, fever, chills, Past Med Surg Social Fam HX - Past Medical History Medical history: arthritis, atrial fibrillation, cardiomyopathy, CHF, diabetes, GERD, hyperlipidemia, hypertension, myocardial infarction, thyroid disease, other Psychiatric history: no psych history - Past Surgical History Surgical History: no surgical history - Social History Smoking Status: Former smoker Smokeless Tobacco Status: No Alcohol use: none Drug use: none - Family History Father Family Member Ethnicity: Non- Living Status: Hx Family Cancer: Yes Mother Family Member Ethnicity: Non- Living Status: Brother Adopted: No Family Member Ethnicity: Non- Living Status: Age at : 83 Cause of : ANEURYSM Hx Family Cardiac Disorders: Yes Hx Family Respiratory Disorders: No Hx Family Cancer: Yes Hx Family GI Disorders: No Hx Family Endocrine Disorder: Yes Hx Family Neuromuscular Disorders: No Hx Family Neurologic Disorders: No Hx Family HEENT Disorders: No Hx Family Autoimmune Disorders: No Hx Family Medical Disorders: Yes Sister Family Member Ethnicity: Non- Living Status: Hx Family Cancer: Yes (Cervical) Internal Medicine - H&P: Meds Finasteride [Proscar] 5 mg PO DAILY 06/08/15 [History] Cholecalciferol (D-3) [Vitamin D] 1,000 unit PO DAILY 12/23/16 [History] Gabapentin [Neurontin] 600 mg PO BID 03/03/17 [History] Nitroglycerin [Nitrostat] 0.4 mg SL Q5M PRN #1 vial 03/04/17 [Rx] Atorvastatin Calcium [Lipitor] 80 mg PO HS 07/06/17 [History] Amiodarone [Cordarone] 200 mg PO DAILY 12/16/17 [History] Isosorbide MONOnitrate (24 HR) [Imdur] 60 mg PO DAILY 12/16/17 [History] Levothyroxine [Synthroid] 0.075 mcg PO DAILY 12/16/17 [History] Metformin HCl [Metformin HCl ER] 500 mg PO BID 12/16/17 [History] Tamsulosin [Flomax] 0.4 mg PO DAILY 12/16/17 [History] Aspirin 81 mg PO DAILY #30 tab.chew 12/18/17 [Rx] Carvedilol [Coreg] 6.25 mg PO BIDWM #60 tablet 12/18/17 [Rx] Lisinopril [Zestril] 20 mg PO DAILY #30 tablet 12/18/17 [Rx] Apixaban [Eliquis] 5 mg PO BID 01/16/18 [History] Clopidogrel [Plavix] 75 mg PO DAILY 01/16/18 [History] 3 Allergy/AdvReac Type Severity Reaction Status Date / Time Penicillins [PCN] Allergy Difficulty Verified 01/16/18 12:54 Breathing All Systems PM: A 10-system review of systems was performed and is negative for pertinent findings except as documented above in the HPI. - Constitutional Constitutional: no chills, no excessive sweating, no fatigue, no fever(s), no falls, no lethargy, no malaise, no night sweats, no weakness, no weight gain, no weight loss - EENT Eyes: no change in vision, no discharge, no pain, no photophobia Ears: no ear discharge, no ear pain, no tinnitus Nose, mouth and throat: no dysphagia, no nasal discharge, no neck pain, no sore throat - Cardiovascular Cardiovascular ROS IM: dyspnea on exertion, edema, irregular heart rhythm, no chest pain, no diaphoresis, no dyspnea, no lightheadedness, no palpitations, no syncope - Respiratory Respiratory: no cough, no dyspnea, no wheezing, no excessive phlegm production - Gastrointestinal Gastrointestinal: no abdominal pain, no diarrhea, no hematemesis, no hematochezia, no melena, no nausea, no vomiting - Genitourinary Genitourinary ROS male: no difficulty urinating, no dysuria, no flank pain, no hematuria, no nocturia, no post void dribbling, no urinary frequency, no urinary hesitancy, no urinary incontinence, no urinary urgency - Musculoskeletal Musculoskeletal ROS IM: no numbness, no tingling - Integumentary Integumentary IM: no rash, no unusual bruising - Neurological Neurological ROS: no confusion, no convulsions, no focal weakness, no numbness, no tingling, no tremor(s) - Hematologic/Lymphatic Hematologic/Lymphatic: no easy bruising - Constitutional Vitals: Pulse Resp BP Pulse Ox 59 16 129/65 97 01/17/18 05:20 01/17/18 05:20 01/17/18 05:20 01/17/18 05:20 General appearance: Present: cooperative, A&O X 3, pleasant, answers questions appropriately - Head Head exam: Present: atraumatic, normocephalic - Eye Eye exam: Present: PERRL, conjuntiva pink, sclera anicteric Pupils: Present: PERRL - Neck Neck exam general surgery: Present: supple, trachea midline. Absent: lymphadenopathy, thyromegaly - Respiratory Respiratory exam: Present: CTAB. Absent: accessory muscle use, chest wall tenderness, decreased breath sounds, prolonged expiratory phase, rales, respiratory distress, rhonchi, stridor, wheezes, tachypnea - Cardiovascular Cardiovascular exam: Present: RRR. Absent: diastolic murmur, gallop, rubs, +S3 , systolic murmur, tachycardia - GI/Abdominal GI/Abdominal exam: Present: normal bowel sounds, soft, no peritoneal signs. Absent: distended, firm, guarding, hepatomegaly, mass, rebound, rigid, splenomegaly, tenderness - Extremities Exam Extremities exam: Present: pedal edema (1+ BLE), warm, radial pulses palpable and symmetrical. Absent: calf tenderness, cyanotic, tenderness - Neurological Exam Neurological exam: Present: CN II-XII intact, oriented X3, no focal deficits. Absent: pronater drift, facial droop, speech deficit - Skin Skin exam: Present: dry, intact Internal Med - H&P Results - Labs CBC & Chem 7: 01/17/18 05:01 01/17/18 05:01 Labs: Short CBC 01/17/18 Range/Units 05:01 WBC 6.0 (4.3-11.1) K/mcL Hgb 11.5 L (12.9-16.9) g/dL Hct 34.0 L (37.5-50.1) % Plt Count 131 L (140-400) K/mcL Neutrophils # 4.0 (1.6-8.9) K/mcL BMP 01/17/18 05:01 Sodium 143 Potassium 3.3 L Chloride 107 Carbon Dioxide 26 BUN 25 H Creatinine 1.07 Glucose 125 H Calcium 8.7 Cardiac Enzymes 01/16/18 01/17/18 Range/Units 21:27 03:42 Troponin I < 0.03 < 0.03 (< 0.04) ng/mL - Assessment and plan (1) Acute exacerbation of CHF (congestive heart failure) Current Visit: Yes Status: Acute Assessment and plan: Patient has increasing SOB w/ lower leg edema. Denies Orthopnea, PND, sob at rest, or JVD. BNP at [facility] was 450. trop negative x1. Last echo 12/2017 showed LVEF 55%. CXR showed mild interstitial pulmonary edema. SOB is most likely due to CHF exacerbation, HFpEF. At [facility] patient was given 40 IV lasix and symptomatically improved. Will continue to treat for CHF exacerbation. - cardiac diet; Fluid restriction 1.5L and 2g of Na - strict I/O, and daily weights - O2 support if SpO2 <92% - nitroglycerin (will watch for decompensation as patient has inferior [facility] last month) - lasix IV 40 BID - continue home BB, ACEI - tele monitoring - consider cardio consult if patient does not improve Qualifiers: Qualified Code(s): I50.33 - Acute on chronic diastolic (congestive) heart failure (2) Hypertensive urgency Current Visit: Yes Status: Acute Assessment and plan: Patient has known chronic HTN. Baseline SBP is ~130. On admission SBP ~200. Goal of SBP in first 24 hours is SBP 160. - continue home rx - continue nitro drip - hydralazine PRN - recheck BP after adminsitration of Lasix (3) Atrial fibrillation Current Visit: Yes Status: Chronic Assessment and plan: on admission, patient was in Afib/aflutter, most likely secondary to CHF exacerbation. Currently rate controlled, but not rhythm controlled. - continue home amiodarone for rhythm control, Do not give QT prolonging medications as patient has chronic QT prolongation >500 - continue eliquis Qualifiers: Atrial fibrillation type: paroxysmal Qualified Code(s): I48.0 - Paroxysmal atrial fibrillation (4) Leg edema Current Visit: Yes Status: Acute Assessment and plan: most likely secondary to CHF exacerbation. - serial low extremity exams. (5) CAD (coronary artery disease) Current Visit: Yes Status: Chronic Assessment and plan: s/p STEMI 12/15/17: [facility] severe 3 vessel disease, CLAY x3 placed in RCA. Currently stable, and no chest pain, or other signs of CAD. Patient is high risk. - Continue home statin, ACEI - hold BB tonight due to low HR Qualifiers: Coronary Disease-Associated Artery/Lesion type: [place] artery [place] vs. transplanted heart: [place] heart Associated angina: angina presence unspecified Qualified Code(s): I25.10 - Atherosclerotic heart disease of [place] coronary artery without angina pectoris (6) Diabetes mellitus Current Visit: Yes Status: Acute Assessment and plan: BG on admission 90. holding home metformin. last a1c 5.4 in 2017. low SSI. Qualifiers: Diabetes mellitus type: type 2 Diabetes mellitus ocean transportation intermediary insulin use: without ocean transportation intermediary use Diabetes mellitus complication status: with hyperglycemia Qualified Code(s): E11.65 - Type 2 diabetes mellitus with hyperglycemia (7) Hyperlipidemia Current Visit: Yes Status: Chronic Assessment and plan: continue home statin Qualifiers: Hyperlipidemia type: mixed hyperlipidemia Qualified Code(s): E78.2 - Mixed hyperlipidemia (8) Hypertension Current Visit: Yes Status: Chronic Assessment and plan: see above Qualifiers: Hypertension type: essential hypertension Qualified Code(s): I10 - Essential (primary) hypertension (9) Hypothyroid Current Visit: Yes Status: Chronic Assessment and plan: last TSH ~6. - TSH ordered - continue home levothyroxine Qualifiers: Hypothyroidism type: acquired Qualified Code(s): E03.9 - Hypothyroidism, unspecified (10) Paroxysmal A-fib Current Visit: Yes Status: Acute Assessment and plan: see above (11) Urinary retention due to benign prostatic hyperplasia Current Visit: Yes Status: Acute Assessment and plan: continue home finasteride and tamsulosin. patient has had to previous issues, and has had to have a bustillos placed. low threshold for bustillos cath placement. (12) (HFpEF) heart failure with preserved ejection fraction Current Visit: Yes Status: Acute Assessment and plan: see above - Time Spent With Patient Total time spent is greater than 50% in coordination of care (as documented) at patient's floor/unit and/or counseling patient: <JoseNegro maher P - Last Filed: 01/17/18 07:08> Date of Encounter: 01/16/18 Internal Medicine - H&P: HPI History of present illness: Mr. Gipson is a 87 year old male All Systems PM: A 10-system review of systems was performed and is negative for pertinent findings except as documented above in the HPI. - Constitutional Vitals: Pulse Resp BP Pulse Ox 59 16 129/65 97 01/17/18 05:20 01/17/18 05:20 01/17/18 05:20 01/17/18 05:20 Internal Med - H&P Results - Labs CBC & Chem 7: 01/17/18 05:01 01/17/18 05:01 Labs: Short CBC 01/17/18 Range/Units 05:01 WBC 6.0 (4.3-11.1) K/mcL Hgb 11.5 L (12.9-16.9) g/dL Hct 34.0 L (37.5-50.1) % Plt Count 131 L (140-400) K/mcL Neutrophils # 4.0 (1.6-8.9) K/mcL BMP 01/17/18 05:01 Sodium 143 Potassium 3.3 L Chloride 107 Carbon Dioxide 26 BUN 25 H Creatinine 1.07 Glucose 125 H Calcium 8.7 Cardiac Enzymes 01/16/18 01/17/18 Range/Units 21:27 03:42 Troponin I < 0.03 < 0.03 (< 0.04) ng/mL - Attending Attestation I was present with the resident during the history and exam performed on . I discussed the case with the resident and agree with the findings and plan as documented in the residents note. Briefly, patient admitted for new onset acute systolic CHF. Also with hypertensive urgency. Will diurese with lasix 40 mg IV BID. Will continue home antihypertensives and keep on nitro drip for now. Will try to wean tomorrow and adjust BP medications. Patient in no distress at this time and seems to be in good spirits. Will monitor closely , including strict I&Os and daily weights. Negro Kim MD - Assessment and plan (1) Diabetes mellitus Current Visit: Yes Status: Acute Qualifiers: Diabetes mellitus type: type 2 Diabetes mellitus ocean transportation intermediary insulin use: without senior living use Diabetes mellitus complication status: with hyperglycemia Qualified Code(s): E11.65 - Type 2 diabetes mellitus with hyperglycemia (2) Hyperlipidemia Current Visit: Yes Status: Chronic Qualifiers: Hyperlipidemia type: mixed hyperlipidemia Qualified Code(s): E78.2 - Mixed hyperlipidemia (3) Urinary retention due to benign prostatic hyperplasia Current Visit: Yes Status: Acute (4) Hypothyroid Current Visit: Yes Status: Chronic Qualifiers: Hypothyroidism type: acquired Qualified Code(s): E03.9 - Hypothyroidism, unspecified (5) Hypertension Current Visit: Yes Status: Chronic Qualifiers: Hypertension type: essential hypertension Qualified Code(s): I10 - Essential (primary) hypertension (6) Atrial fibrillation Current Visit: Yes Status: Chronic Qualifiers: Atrial fibrillation type: paroxysmal Qualified Code(s): I48.0 - Paroxysmal atrial fibrillation (7) CAD (coronary artery disease) Current Visit: Yes Status: Chronic Qualifiers: Coronary Disease-Associated Artery/Lesion type: [place] artery [place] vs. transplanted heart: [place] heart Associated angina: angina presence unspecified Qualified Code(s): I25.10 - Atherosclerotic heart disease of [place] coronary artery without angina pectoris (8) Paroxysmal A-fib Current Visit: Yes Status: Acute (9) Acute exacerbation of CHF (congestive heart failure) Current Visit: Yes Status: Acute Qualifiers: Qualified Code(s): I50.33 - Acute on chronic diastolic (congestive) heart failure (10) Hypertensive urgency Current Visit: Yes Status: Acute (11) Leg edema Current Visit: Yes Status: Acute (12) (HFpEF) heart failure with preserved ejection fraction Current Visit: Yes Status: Acute - Time Spent With Patient Total time spent is greater than 50% in coordination of care (as documented) at patient's floor/unit and/or counseling patient:
[2018-01-17] MEDS ORDERED: Levothyroxine 25 MCG TABLET PO SCH (09:00)
[2018-01-17] MEDS ORDERED: *HR* Amiodarone 200 MG TABLET PO SCH (09:00)
[2018-01-17] MEDS: Isosorbide MONOnitrate (24 HR) 60 MG TAB.ER.24H PO SCH (09:14)
[2018-01-17] MEDS: Gabapentin 300 MG CAPSULE PO SCH ×2 (09:15→22:44)
[2018-01-17] MEDS: Lisinopril 20 MG TABLET PO SCH (09:15)
[2018-01-17] MEDS: Cholecalciferol (D-3) 1,000 UNIT TABLET PO SCH (09:15)
[2018-01-17] MEDS: Finasteride 5 MG TABLET PO SCH (09:15)
[2018-01-17] MEDS: Apixaban 5 MG TABLET PO SCH ×2 (09:15→22:44)
[2018-01-17] MEDS: Furosemide 40 MG/4 ML VIAL IVP SCH ×2 (09:15→16:50)
[2018-01-17] MEDS: Insulin LISPRO 300 UNITS/3 ML VIAL SQ SCH ×4 (09:16→22:43)
--- NOTE | 2018-01-17 10:15 | Internal Med Progress Note ---
<Aditya Garcia - Last Filed: 01/17/18 16:04> Date of Encounter: 01/17/18 Time of Encounter: 08:45 - Assessment and plan (1) Acute exacerbation of CHF (congestive heart failure) Current Visit: Yes Status: Acute Assessment and plan: Patient reports increased shortness of breath and orthopnea BNP at [facility] was 450 Trop negative x1 Last echo 12/2017 showed LVEF 55% CXR showed mild interstitial pulmonary edema SOB is most likely due to CHF exacerbation, HFpEF At [place] patient was given 40 IV lasix and symptomatically improved Cardiac diet; Fluid restriction 1.5L Strict I/O, and daily weights O2 support if needed, wean as tolerated Nitroglycerin gtt(will watch for decompensation as patient has inferior ID last month) Only nitroglycerin drip and transitioned to by mouth antihypertensive medications Continue Lasix IV 40 BID Continue home BB, ACEI Tele monitoring Cardiology consulted and appreciate recommendations for continued management/ care Qualifiers: Heart failure type: diastolic Qualified Code(s): I50.33 - Acute on chronic diastolic (congestive) heart failure (2) Hypertensive urgency Current Visit: Yes Status: Acute Assessment and plan: Patient has known chronic HTN On admission SBP ~200 Goal of SBP in first 24 hours is SBP 160 Expect improvement patient blood pressure with greater diuresis Continue home rx Nitroglycerin drip Wean nitro drip transition to by mouth medications Hydralazine PRN (3) Hypothyroid Current Visit: Yes Status: Chronic Assessment and plan: Elevated TSH around 9.2 Patient takes 112 g levothyroxine at home We will increase dose of levothyroxine to 125 g Qualifiers: Hypothyroidism type: acquired Qualified Code(s): E03.9 - Hypothyroidism, unspecified (4) Urinary retention due to benign prostatic hyperplasia Current Visit: Yes Status: Acute Assessment and plan: Continue home finasteride and tamsulosin Patient had previously required Torres (5) Atrial fibrillation Current Visit: Yes Status: Chronic Assessment and plan: On admission patient was in Afib/aflutter, most likely secondary to CHF exacerbation. Currently rate controlled, but not rhythm controlled. We will hold patient amiodarone Continue eliquis Qualifiers: Atrial fibrillation type: paroxysmal Qualified Code(s): I48.0 - Paroxysmal atrial fibrillation (6) CAD (coronary artery disease) Current Visit: Yes Status: Chronic Assessment and plan: s/p STEMI 12/15/17: [facility] severe 3 vessel disease, CLAY x3 placed in RCA Currently stable, and no chest pain, or other signs of CAD Patient is high risk Continue home statin, ACEI Qualifiers: Coronary Disease-Associated Artery/Lesion type: [place] artery [place] vs. transplanted heart: [place] heart Associated angina: angina presence unspecified Qualified Code(s): I25.10 - Atherosclerotic heart disease of [place] coronary artery without angina pectoris (7) Leg edema Current Visit: Yes Status: Acute Assessment and plan: most likely secondary to CHF exacerbation Improved from last night (8) Diabetes mellitus Current Visit: Yes Status: Acute Assessment and plan: BG on admission 90 last a1c 5.4 in 2017 Holding home metformin Continue low-dose SSI. Qualifiers: Diabetes mellitus type: type 2 Diabetes mellitus intermediate designer insulin use: without intermediate designer use Diabetes mellitus complication status: with hyperglycemia Qualified Code(s): E11.65 - Type 2 diabetes mellitus with hyperglycemia (9) Hyperlipidemia Current Visit: Yes Status: Chronic Assessment and plan: continue home statin Qualifiers: Hyperlipidemia type: mixed hyperlipidemia Qualified Code(s): E78.2 - Mixed hyperlipidemia (10) Prolonged QT interval Current Visit: Yes Status: Acute Assessment and plan: Initial EKG showed QTC slightly over 500 Patient on amiodarone and Coreg at home normally Repeat EKG showed QTC over 600, though A. fib/A flutter at that time obstructed view of QTC After conversion the patient rhythm, QTC was seen to be elevated above 500 Cardiology recommended cessation of amiodarone - Time Spent With Patient Total time spent is greater than 50% in coordination of care (as documented) at patient's floor/unit and/or counseling patient: - Subjective Interval history: Patient sitting on the side of the bed comfortably. He reports that he has had significant improvement in his orthopnea since undergoing extensive diuresis. He reports improvement in shortness of breath and denies any chest pain or palpitations. Denies any lightheadedness or dizziness. He states that he eats almost exclusively frozen dinners and drinks soda and orange juice regularly. - Constitutional Vitals: Temp Pulse Resp BP Pulse Ox 97.4 F L 57 18 134/76 92 01/17/18 07:11 01/17/18 07:11 01/17/18 07:11 01/17/18 07:11 01/17/18 07:11 General appearance: Present: cooperative, A&O X 3, pleasant, answers questions appropriately Exam: General: Cooperative, pleasant, no acute distress, alert and oriented 3, answers questions appropriately HEENT: Normocephalic, atraumatic, neck supple, trachea midline, Conjunctiva pink , sclera anicteric, oral mucosa moist Respiratory: No accessory muscle usage, mild bibasilar Rales, no wheezes or rhonchi Auscultation Cardiovascular: Regular rate and rhythm, S1 and S2 present, no murmurs/rubs/ gallops/clicks appreciated GI/abdominal: Nondistended, normal bowel sounds, no peritoneal signs Extremities: No calf tenderness, mild pedal edema appreciated, warm, lower extremity pulses palpable and symmetrical Neurological: Alert and oriented 3, no facial droop, no focal deficits Skin: Dry, intact, normal color Internal Medicine: Result - Labs CBC & Chem 7: 01/17/18 05:01 01/17/18 05:01 Labs: Short CBC 01/17/18 Range/Units 05:01 WBC 6.0 (4.3-11.1) K/mcL Hgb 11.5 L (12.9-16.9) g/dL Hct 34.0 L (37.5-50.1) % Plt Count 131 L (140-400) K/mcL Neutrophils # 4.0 (1.6-8.9) K/mcL BMP 01/17/18 05:01 Sodium 143 Potassium 3.3 L Chloride 107 Carbon Dioxide 26 BUN 25 H Creatinine 1.07 Glucose 125 H Calcium 8.7 Cardiac Enzymes 01/16/18 01/17/18 Range/Units 21:27 03:42 Troponin I < 0.03 < 0.03 (< 0.04) ng/mL Consult Discharge Plan - Plan Referrals: NONE,PCP [Primary Care Provider] - <Enrique Perdomo - Last Filed: 01/17/18 18:53> Date of Encounter: 01/17/18 - Assessment and plan (1) Hypertensive urgency Current Visit: Yes Status: Acute (2) Acute exacerbation of CHF (congestive heart failure) Current Visit: Yes Status: Acute Qualifiers: Heart failure type: diastolic Qualified Code(s): I50.33 - Acute on chronic diastolic (congestive) heart failure (3) Diabetes mellitus Current Visit: Yes Status: Acute Qualifiers: Diabetes mellitus type: type 2 Diabetes mellitus intermediate designer insulin use: without jail use Diabetes mellitus complication status: with hyperglycemia Qualified Code(s): E11.65 - Type 2 diabetes mellitus with hyperglycemia (4) Hyperlipidemia Current Visit: Yes Status: Chronic Qualifiers: Hyperlipidemia type: mixed hyperlipidemia Qualified Code(s): E78.2 - Mixed hyperlipidemia (5) Urinary retention due to benign prostatic hyperplasia Current Visit: Yes Status: Acute (6) Hypothyroid Current Visit: Yes Status: Chronic Qualifiers: Hypothyroidism type: acquired Qualified Code(s): E03.9 - Hypothyroidism, unspecified (7) Atrial fibrillation Current Visit: Yes Status: Chronic Qualifiers: Atrial fibrillation type: paroxysmal Qualified Code(s): I48.0 - Paroxysmal atrial fibrillation (8) CAD (coronary artery disease) Current Visit: Yes Status: Chronic Qualifiers: Coronary Disease-Associated Artery/Lesion type: [place] artery [place] vs. transplanted heart: [place] heart Associated angina: without angina Qualified Code(s): I25.10 - Atherosclerotic heart disease of [place] coronary artery without angina pectoris (9) Leg edema Current Visit: Yes Status: Acute (10) Prolonged QT interval Current Visit: Yes Status: Acute - Time Spent With Patient Total time spent is greater than 50% in coordination of care (as documented) at patient's floor/unit and/or counseling patient: - Constitutional Vitals: Temp Pulse Resp BP Pulse Ox 98.0 F 86 15 133/63 96 01/17/18 15:37 01/17/18 15:37 01/17/18 15:37 01/17/18 15:37 01/17/18 15:37 Internal Medicine: Result - Labs CBC & Chem 7: 01/17/18 05:01 01/17/18 05:01 Labs: Short CBC 01/17/18 Range/Units 05:01 WBC 6.0 (4.3-11.1) K/mcL Hgb 11.5 L (12.9-16.9) g/dL Hct 34.0 L (37.5-50.1) % Plt Count 131 L (140-400) K/mcL Neutrophils # 4.0 (1.6-8.9) K/mcL BMP 01/17/18 05:01 Sodium 143 Potassium 3.3 L Chloride 107 Carbon Dioxide 26 BUN 25 H Creatinine 1.07 Glucose 125 H Calcium 8.7 Cardiac Enzymes 01/16/18 01/17/18 Range/Units 21:27 03:42 Troponin I < 0.03 < 0.03 (< 0.04) ng/mL - Attending Attestation I examined this patient and my medical decision-making was reviewed with the Resident Physician on 01/17/18. I agree with the documented findings, disposition and treatment plan as described except to the extent set forth below. Mr Gipson is currently admitted for acute exac CHF. He remains moderate to high risk due to potential for worsening clinical status. Mr Gipson is doing OK. No fever or chills. Breathing has improved some. No GI issues. Exam Alert Comfortable at rest Mucus membranes dry Heart irreg and tachy Crackles heard I/P 1. Exac CHF 2. Rapid a fib -parox Further diagnoses and plan as above.
[2018-01-17] MEDS ORDERED: Potassium Chloride Elixir 20 MEQ/15 ML UDC PO ONE (10:51)
--- NOTE | 2018-01-17 14:28 | Cardiology Consult Note ---
Date of Encounter: 01/17/18 Time of Encounter: 14:23 Assessment and Plan (1) Atrial fibrillation with rapid ventricular response Current Visit: No Status: Acute Currently back to normal sinus rhythm on amiodarone and anticoagulation. Amiodarone currently held for prolonged QTC likely not the culprit but may be secondary to hypothyroidism. Would recommend resuming amiodarone once hypothyroidism has been dressed at previous dose and QTC is corrected (2) (HFpEF) heart failure with preserved ejection fraction Current Visit: No Status: Acute Preserved ejection fraction 55% likely secondary to dietary indiscretions as above, recommend dietary consult Discussion w patient/family: The assessment and plan as outlined above was discussed with the patient and/or family members who expressed understanding and agreement. All questions were answered. Thank you for involving us in the care of your patient. Please call with any questions. History of Present Illness Consult date: 01/17/18 Consult reason: CHF Chief complaint: CAVAZOS History of present illness: Mr. Gipson is a 87 year old male with history of coronary artery disease status post PCI to his RCA and nonobstructive disease in the LAD and circumflex. Patient presents due to increasing shortness of breath hypervolemia and mild interstitial edema. Dietary indiscretions have been significant after discussion with the patient. He drinks pop/eats frozen dinners likely with increased sodium intake as a culprit for his hypervolemia. His last echocardiogram in December 2017 reveals a preserved ejection fraction 55% and mild concentric LVH. Presented in paroxysmal atrial fibrillation with RVR currently back to sinus rhythm post-diuresis. He currently seems euvolemic and feels better but EKG reveals a prolonged QTC. He currently is on amiodarone for his atrial fibrillation which may be a culprit however also noted patient is hypothyroid with a TSH above 9.2 We have held his amiodarone at this time however treatment of his hypothyroidism would likely benefit QTC. Past Med Surg Social Fam HX - Past Medical History Medical history: arthritis, atrial fibrillation, cardiomyopathy, CHF, diabetes, GERD, hyperlipidemia, hypertension, myocardial infarction, thyroid disease, other Psychiatric history: no psych history - Past Surgical History Surgical History: no surgical history - Social History Smoking Status: Former smoker Smokeless Tobacco Status: No Alcohol use: none Drug use: none - Family History Father Family Member Ethnicity: Non- Living Status: Hx Family Cancer: Yes Mother Family Member Ethnicity: Non- Living Status: Brother Adopted: No Family Member Ethnicity: Non- Living Status: Age at : 83 Cause of : ANEURYSM Hx Family Cardiac Disorders: Yes Hx Family Respiratory Disorders: No Hx Family Cancer: Yes Hx Family GI Disorders: No Hx Family Endocrine Disorder: Yes Hx Family Neuromuscular Disorders: No Hx Family Neurologic Disorders: No Hx Family HEENT Disorders: No Hx Family Autoimmune Disorders: No Hx Family Medical Disorders: Yes Sister Family Member Ethnicity: Non- Living Status: Hx Family Cancer: Yes (Cervical) Medications and Allergies Finasteride [Proscar] 5 mg PO DAILY 06/08/15 [History] Cholecalciferol (D-3) [Vitamin D] 1,000 unit PO DAILY 12/23/16 [History] Gabapentin [Neurontin] 600 mg PO BID 03/03/17 [History] Nitroglycerin [Nitrostat] 0.4 mg SL Q5M PRN #1 vial 03/04/17 [Rx] Atorvastatin Calcium [Lipitor] 80 mg PO HS 07/06/17 [History] Amiodarone [Cordarone] 200 mg PO DAILY 12/16/17 [History] Isosorbide MONOnitrate (24 HR) [Imdur] 60 mg PO DAILY 12/16/17 [History] Levothyroxine [Synthroid] 0.075 mcg PO DAILY 12/16/17 [History] Metformin HCl [Metformin HCl ER] 500 mg PO BID 12/16/17 [History] Tamsulosin [Flomax] 0.4 mg PO DAILY 12/16/17 [History] Aspirin 81 mg PO DAILY #30 tab.chew 12/18/17 [Rx] Carvedilol [Coreg] 6.25 mg PO BIDWM #60 tablet 12/18/17 [Rx] Lisinopril [Zestril] 20 mg PO DAILY #30 tablet 12/18/17 [Rx] Apixaban [Eliquis] 5 mg PO BID 01/16/18 [History] Clopidogrel [Plavix] 75 mg PO DAILY 01/16/18 [History] 3 Allergy/AdvReac Type Severity Reaction Status Date / Time Penicillins [PCN] Allergy Difficulty Verified 01/16/18 12:54 Breathing All Systems Review: The remainder of the systems were reviewed and are negative Physical Examination Vital Signs, Last 4 Hours Temp Pulse Resp BP Pulse Ox 01/17/18 11:33 97.5 F L 57 96 143/70 97 General: Conversant, No Apparent Distress HEENT: Atraumatic, Normocephaly, Mucus Membranes Moist Neck: No JVD, Normal carotid pulses Cardiac: Reg Rate and Rhythm, Normal S1 and S2, No Murmur Lungs: Normal Breath Sounds, No Wheeze, Rales, Rhonchi Neuro: Alert and responsive, No focal deficits noted Abdomen: Soft, Non-Tender Skin: No rashes noted on visualized skin Musculoskeletal: No Chest Wall Tenderness Extremities: No Clubbing, No Cyanosis, No Edema, Normal Pulses Results 01/17/18 05:01 01/17/18 05:01 Lab Results 01/16/18 01/16/18 01/17/18 21:27 21:27 03:42 WBC Hgb Hct Plt Count Sodium Potassium Chloride Carbon Dioxide BUN Creatinine Glucose Calcium Magnesium Troponin I < 0.03 < 0.03 TSH 9.284 H 01/17/18 01/17/18 05:01 05:01 WBC 6.0 Hgb 11.5 L Hct 34.0 L Plt Count 131 L Sodium 143 Potassium 3.3 L Chloride 107 Carbon Dioxide 26 BUN 25 H Creatinine 1.07 Glucose 125 H Calcium 8.7 Magnesium 2.0 Troponin I TSH Consult Discharge Plan - Plan Referrals: NONE,PCP [Primary Care Provider] -
[2018-01-17 15:50] LABS: Thyroid Stimulating Hormone 9.273 mcIU/mL (0.340-5.600)
[2018-01-18 05:14] LABS: Basophils % 0.4 %; Eosinophils # 0.2 K/mcL (0.0-0.6); Eosinophils % 3.4 %; Hematocrit 33.7 % (37.5-50.1); Hemoglobin 11.1 g/dL (12.9-16.9); Immature Granulocytes % 0.4 % (0-4); Lymphocytes # 1.5 K/mcL (0.6-4.6); Lymphocytes % 26.7 %; Mean Corpuscular HGB Conc 32.9 g/dL (31.6-35.5); Mean Corpuscular Hemoglobin 29.9 pg (28.0-33.3); Mean Corpuscular Volume 90.8 fL (83.0-100.0); Mean Platelet Volume 10.9 fL (9.4-12.4); Monocytes # 0.5 K/mcL (0.0-1.3); Monocytes % 8.9 %; Neutrophils # 3.4 K/mcL (1.6-8.9); Platelet Count 148 K/mcL (140-400); Red Blood Count 3.71 M/mcL (4.19-5.50); Red Cell Distribution Width 14.3 % (11.5-14.5); Segmented Neutrophils % 60.2 %
[2018-01-18 05:16] LABS: Calcium 8.7 mg/dL (8.6-10.3); Magnesium 2.2 mg/dL (1.6-2.6); Phosphorous 3.8 mg/dL (2.7-4.5); Potassium 3.9 mEq/L (3.5-5.1)
[2018-01-18] MEDS: Insulin LISPRO 300 UNITS/3 ML VIAL SQ SCH ×4 (08:34→21:42)
[2018-01-18] MEDS: Cholecalciferol (D-3) 1,000 UNIT TABLET PO SCH (08:36)
[2018-01-18] MEDS: Finasteride 5 MG TABLET PO SCH (08:37)
[2018-01-18] MEDS: Lisinopril 20 MG TABLET PO SCH (08:37)
[2018-01-18] MEDS: Gabapentin 300 MG CAPSULE PO SCH ×2 (08:37→20:27)
[2018-01-18] MEDS: Apixaban 5 MG TABLET PO SCH ×2 (08:38→20:26)
[2018-01-18] MEDS: Furosemide 40 MG/4 ML VIAL IVP SCH (08:38)
[2018-01-18] MEDS: Isosorbide MONOnitrate (24 HR) 60 MG TAB.ER.24H PO SCH (08:38)
--- NOTE | 2018-01-18 08:46 | Internal Med Progress Note ---
<ChrissyluReno menezes - Last Filed: 01/18/18 15:29> Date of Encounter: 01/18/18 Time of Encounter: 08:45 - Assessment and plan (1) Acute exacerbation of CHF (congestive heart failure) Current Visit: Yes Status: Acute Assessment and plan: Patient reports increased shortness of breath and orthopnea BNP at [place] was 450 Trop negative x3 Last echo 12/2017 showed LVEF 55% CXR showed mild interstitial pulmonary edema SOB is most likely due to CHF exacerbation, HFpEF At [place] patient was given 40 IV lasix and symptomatically improved -1415mL past 24 hours Cardiac diet; Fluid restriction 1.5L Strict I/O, and daily weights O2 support if needed, wean as tolerated Continue Lasix IV 40 BID Continue BB, ACEI. Discontinued amiodarone Tele monitoring Cardiology on board, following recommendations. Qualifiers: Heart failure type: diastolic Qualified Code(s): I50.33 - Acute on chronic diastolic (congestive) heart failure (2) Atrial fibrillation Current Visit: Yes Status: Chronic Assessment and plan: On admission patient was in Afib/aflutter, most likely secondary to CHF exacerbation. Currently rate controlled, but not rhythm controlled, bradycardic rate at times. Continue eliquis. Start plavix and aspirin. Qualifiers: Atrial fibrillation type: paroxysmal Qualified Code(s): I48.0 - Paroxysmal atrial fibrillation (3) Hypertensive urgency Current Visit: Yes Status: Acute Assessment and plan: Patient has known chronic HTN On admission SBP ~200 Bp improving. Continue home rx Hydralazine PRN (4) Urinary retention due to benign prostatic hyperplasia Current Visit: Yes Status: Acute Assessment and plan: Continue home finasteride and tamsulosin Patient had previously required Bustillos, no bustillos necessary at this time. (5) Leg edema Current Visit: Yes Status: Acute Assessment and plan: most likely secondary to CHF exacerbation Improved from last night (6) CAD (coronary artery disease) Current Visit: Yes Status: Chronic Assessment and plan: s/p STEMI 12/15/17: [facility] severe 3 vessel disease, CLAY x3 placed in RCA Currently stable, and no chest pain, or other signs of CAD Patient is high risk Continue home statin, ACEI Qualifiers: Coronary Disease-Associated Artery/Lesion type: [place] artery [place] vs. transplanted heart: [place] heart Associated angina: without angina Qualified Code(s): I25.10 - Atherosclerotic heart disease of [place] coronary artery without angina pectoris (7) Hyperlipidemia Current Visit: Yes Status: Chronic Assessment and plan: continue home statin Qualifiers: Hyperlipidemia type: mixed hyperlipidemia Qualified Code(s): E78.2 - Mixed hyperlipidemia (8) Diabetes mellitus Current Visit: Yes Status: Acute Assessment and plan: Last a1c 5.4 in 2017 Holding home metformin Continue low-dose SSI. 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 Qualifiers: Hypothyroidism type: acquired Qualified Code(s): E03.9 - Hypothyroidism, unspecified (10) Prolonged QT interval Current Visit: Yes Status: Acute Assessment and plan: Initial EKG showed QTC slightly over 500 Patient on amiodarone and Coreg at home normally Repeat EKG showed QTC over 600, though A. fib/A flutter at that time obstructed view of QTC After conversion the patient rhythm, QTC was seen to be elevated above 500 EKG this morning shows improvement of QT/QTc 542/520 Discontinue amiodaone Continue to monitor overnight. - Time Spent With Patient Total time spent is greater than 50% in coordination of care (as documented) at patient's floor/unit and/or counseling patient: - Subjective Interval history: Mr. Gipson reports feel much better this morning. More energy, less short of breath, and swelling much improved. Patient denies fevers, chills, sweats, headaches, changes in vision, nausea, vomiting, chest pain, abdominal pain, changes in bowels, dysuria, weakness, or loss of sensation. - Constitutional Vitals: Temp Pulse Resp BP Pulse Ox 97.6 F 55 18 150/77 95 01/18/18 07:20 01/18/18 07:20 01/18/18 07:20 01/18/18 07:20 01/18/18 07:20 General appearance: Present: cooperative, A&O X 3, pleasant, no acute distress, answers questions appropriately - Head Head exam: Present: atraumatic, normal inspection, normocephalic - Eye Eye exam: Present: EOMI, normal appearance - ENT ENT exam: Present: mucous membranes moist, normal exam - Neck Neck exam general surgery: Present: full ROM, normal inspection, supple, trachea midline - Respiratory Respiratory exam: Present: CTAB. Absent: rales, respiratory distress, rhonchi, wheezes - Cardiovascular Cardiovascular exam: Present: bradycardia, irregular rhythm, +S1, +S2 - GI/Abdominal GI/Abdominal exam: Present: normal bowel sounds, soft. Absent: tenderness - Extremities Exam Extremities exam: Present: full ROM, pedal edema (1+ pitting bilateral lower ext ), warm, radial pulses palpable and symmetrical. Absent: tenderness - Skin Skin exam: Present: dry, intact, normal color, warm Internal Medicine: Result - Labs CBC & Chem 7: 01/18/18 04:21 01/18/18 04:21 Labs: Short CBC 01/18/18 Range/Units 04:21 WBC 5.6 (4.3-11.1) K/mcL Hgb 11.1 L (12.9-16.9) g/dL Hct 33.7 L (37.5-50.1) % Plt Count 148 (140-400) K/mcL Neutrophils # 3.4 (1.6-8.9) K/mcL BMP 01/18/18 04:21 Sodium 144 Potassium 3.9 Chloride 109 H Carbon Dioxide 27 BUN 36 H Creatinine 1.45 H Glucose 105 Calcium 8.7 Consult Discharge Plan - Plan Referrals: NONE,PCP [Primary Care Provider] - Prescriptions: Apixaban [Eliquis] 5 mg PO BID #60 tablet Clopidogrel Bisulfate [Plavix] 75 mg PO DAILY #30 tablet <Enrique Perdomo - Last Filed: 01/18/18 17:41> Date of Encounter: 01/18/18 - Assessment and plan (1) BRIAN (acute kidney injury) Current Visit: No Status: Acute (2) Acute exacerbation of CHF (congestive heart failure) Current Visit: Yes Status: Acute Qualifiers: Heart failure type: diastolic Qualified Code(s): I50.33 - Acute on chronic diastolic (congestive) heart failure (3) Hypertensive urgency Current Visit: Yes Status: Acute (4) Diabetes mellitus Current Visit: Yes Status: Acute Qualifiers: Diabetes mellitus type: type 2 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 use: without intermediate use Diabetes mellitus complication status: with hyperglycemia Qualified Code(s): E11.65 - Type 2 diabetes mellitus with hyperglycemia (5) Hyperlipidemia Current Visit: Yes Status: Chronic Qualifiers: Hyperlipidemia type: mixed hyperlipidemia Qualified Code(s): E78.2 - Mixed hyperlipidemia (6) Urinary retention due to benign prostatic hyperplasia Current Visit: Yes Status: Acute (7) Hypothyroid Current Visit: Yes Status: Chronic Qualifiers: Hypothyroidism type: acquired Qualified Code(s): E03.9 - Hypothyroidism, unspecified (8) Atrial fibrillation Current Visit: Yes Status: Chronic Qualifiers: Atrial fibrillation type: paroxysmal Qualified Code(s): I48.0 - Paroxysmal atrial fibrillation (9) CAD (coronary artery disease) Current Visit: Yes Status: Chronic Qualifiers: Coronary Disease-Associated Artery/Lesion type: [place] artery [place] vs. transplanted heart: [place] heart Associated angina: without angina Qualified Code(s): I25.10 - Atherosclerotic heart disease of [place] coronary artery without angina pectoris (10) Leg edema Current Visit: Yes Status: Acute (11) Prolonged QT interval Current Visit: Yes Status: Acute - Time Spent With Patient Total time spent is greater than 50% in coordination of care (as documented) at patient's floor/unit and/or counseling patient: - Constitutional Vitals: Temp Pulse Resp BP Pulse Ox 97.7 F 57 18 148/73 97 01/18/18 15:36 01/18/18 15:36 01/18/18 15:36 01/18/18 15:36 01/18/18 15:36 Internal Medicine: Result - Labs CBC & Chem 7: 01/18/18 04:21 01/18/18 16:00 Labs: Short CBC 01/18/18 Range/Units 04:21 WBC 5.6 (4.3-11.1) K/mcL Hgb 11.1 L (12.9-16.9) g/dL Hct 33.7 L (37.5-50.1) % Plt Count 148 (140-400) K/mcL Neutrophils # 3.4 (1.6-8.9) K/mcL BMP 01/18/18 01/18/18 04:21 16:00 Sodium 144 143 Potassium 3.9 4.2 Chloride 109 H 106 Carbon Dioxide 27 31 H BUN 36 H 35 H Creatinine 1.45 H 1.43 H Glucose 105 101 Calcium 8.7 8.8 - Attending Attestation I examined this patient and my medical decision-making was reviewed with the Resident Physician on 01/18/18. I agree with the documented findings, disposition and treatment plan as described except to the extent set forth below. Mr Gipson is currently admitted for acute exac CHF. He remains moderate to high risk due to potential for worsening clinical status. Mr Gipson is feeling OK today. His breathing has improved. No fever or chills. Edema improving as well. Creatinine has increased. Exam alert Comfortable Mucus membranes dry Heart irreg and aristeo Lungs clear at this time Abd soft Trace edema I/P 1. BRIAN 2. CHF Further diagnoses and plan as above.
[2018-01-18] MEDS ORDERED: Aspirin 81 MG TAB.CHEW PO SCH (10:30)
--- NOTE | 2018-01-18 11:07 | Cardiology Progress Note ---
Date of Encounter: 01/18/18 Time of Encounter: 10:20 Assessment and Plan (1) PAF (paroxysmal atrial fibrillation) Current Visit: No Status: Chronic Hx of PAF on Amiodarone and Eliquis for AC. Appears to be in Afib this morning, rate controlled. QTc prolongation noted on ECG 01/17--QT/QTc 601/603 ms. Amiodarone stopped. Repeat ECG today. Of note, patient has poor outpatient follow-up with Cardiology, may need to discontinue amiodarone, will further discuss with Dr. Varela. (2) CAD (coronary artery disease) Current Visit: No Status: Acute Recent STEMI s/p PCI to RCA. Uninterrupted DAPT (asa + brilinta) for a minimum of 1 year. Statin, BB. EF preserved. Chest pain free. Qualifiers: Coronary Disease-Associated Artery/Lesion type: [place] artery [place] vs. transplanted heart: [place] heart Associated angina: without angina Qualified Code(s): I25.10 - Atherosclerotic heart disease of [place] coronary artery without angina pectoris (3) (HFpEF) heart failure with preserved ejection fraction Current Visit: No Status: Acute Acute on chronic diastolic CHF, EF preserved per TTE. Exacerbation likely secondary to dietary indiscretion. Of note, has poor outpatient follow-up. SCr bump today, likely from diuretic, IV lasix stopped. May consider prn lasix dosing upon discharge. Appears euvolemic upon exam. Cumulative I&O: -1719 mL. Discussion w patient/family: The assessment and plan as outlined above was discussed with the patient and/or family members who expressed understanding and agreement. All questions were answered. Thank you for involving us in the care of your patient. Please call with any questions. Subjective Principal diagnosis: Diastolic CHF, Afib Interval history: Seen and examined. Patient reports shortness of breath has almost completely resolved, still with minimal LE swelling. No chest pain reported. Reports medication compliance at home. Objective Vital Signs, Last 4 Hours Temp Pulse Resp BP Pulse Ox 01/18/18 07:20 97.6 F 55 18 150/77 95 General: Conversant, No Apparent Distress HEENT: Atraumatic, Normocephaly, Mucus Membranes Moist Cardiac: Other (irregularly irregular) Lungs: Normal Breath Sounds Neuro: Alert and responsive Abdomen: Soft Skin: No rashes noted on visualized skin Musculoskeletal: No Chest Wall Tenderness Extremities: Other (mild, non-obstructive CAD. ) Results 01/18/18 04:21 01/18/18 04:21 Lab Results 01/17/18 01/18/18 01/18/18 14:45 04:21 04:21 WBC 5.6 Hgb 11.1 L Hct 33.7 L Plt Count 148 Sodium 144 Potassium 3.9 Chloride 109 H Carbon Dioxide 27 BUN 36 H Creatinine 1.45 H Glucose 105 Calcium 8.7 Magnesium 2.2 TSH 9.273 H Active Medications Acetaminophen (Tylenol) 650 mg PO Q6HR PRN PRN Reason: Pain Stop: 07/19/18 01:36 Last Admin: 01/17/18 01:47 Dose: 650 mg Apixaban (Eliquis) 5 mg PO BID REGINA Stop: 07/18/18 22:16 Last Admin: 01/18/18 08:38 Dose: 5 mg Aspirin (Aspirin) 81 mg PO DAILY REGINA Stop: 07/20/18 10:31 Atorvastatin Calcium (Lipitor) 80 mg PO HS REGINA Stop: 07/18/18 22:16 Last Admin: 01/17/18 22:44 Dose: 80 mg Carvedilol (Coreg) 6.25 mg PO BIDWM REGINA PRN Reason: Protocol Stop: 07/19/18 05:16 Last Admin: 01/18/18 08:36 Dose: 6.25 mg Dextrose/Water (Dextrose 50% (Syg)) 25 ml IVP AD PRN PRN Reason: Hypoglycemia Stop: 07/18/18 20:52 Docusate Sodium (Colace) 100 mg PO BID PRN; Protocol PRN Reason: Constipation Stop: 07/18/18 21:12 Last Admin: 01/16/18 22:37 Dose: 100 mg Finasteride (Proscar) 5 mg PO DAILY REGINA PRN Reason: Protocol Stop: 07/19/18 09:01 Last Admin: 01/18/18 08:37 Dose: 5 mg Furosemide (Lasix) 40 mg IVP BIDDIURETIC REGINA Stop: 07/19/18 08:01 Last Admin: 01/18/18 08:38 Dose: 40 mg Gabapentin (Neurontin) 600 mg PO BID REGINA Stop: 07/18/18 22:16 Last Admin: 01/18/18 08:37 Dose: 600 mg Glucagon (Glucagen) 1 mg IM ONCE PRN PRN Reason: Hypoglycemia Stop: 07/18/18 20:52 Glucose (Gluctose) 15 gm PO ONCE PRN PRN Reason: Hypoglycemia Stop: 07/18/18 20:52 Glucose (Gluctose) 30 gm PO ONCE PRN PRN Reason: Hypoglycemia Stop: 07/18/18 20:52 Hydralazine HCl (Hydralazine) 10 mg IVP Q6HR PRN PRN Reason: Hypertension Stop: 07/18/18 21:08 Last Admin: 01/17/18 00:47 Dose: 10 mg Dextrose (Dextrose 5%) 1,000 mls @ 100 mls/hr IVC .Q10H PRN PRN Reason: HYPOGLYCEMIA Stop: 07/18/18 20:52 Nitroglycerin (Nitroglycerin Premix 25 Mg/250 Ml) 25 mg in 250 mls @ 3 mls/hr IVC .Q24H REGINA; 5 MCG/MIN PRN Reason: Protocol Stop: 07/18/18 21:16 Last Titration: 01/17/18 05:24 Dose: 25 mcg/min, 15 mls/hr Insulin Human Lispro (Humalog) 0 units SQ HS [facility] PRN Reason: Protocol Stop: 07/18/18 21:01 Last Admin: 01/17/18 22:43 Dose: Not Given Insulin Human Lispro (Humalog) 0 units SQ TIDAC [facility] PRN Reason: Protocol Stop: 07/19/18 07:31 Last Admin: 01/18/18 08:34 Dose: 2 units Isosorbide Mononitrate (Imdur) 60 mg PO DAILY [facility] Stop: 07/19/18 09:01 Last Admin: 01/18/18 08:38 Dose: 60 mg Levothyroxine Sodium (Synthroid) 125 mcg PO DAILY@0630 REGINA Stop: 07/20/18 06:31 Last Admin: 01/18/18 05:05 Dose: 125 mcg Lisinopril (Zestril) 20 mg PO DAILY [facility] PRN Reason: Protocol Stop: 07/19/18 09:01 Last Admin: 01/18/18 08:37 Dose: 20 mg Naloxone HCl (Narcan) 0.4 mg IVP Q2MIN PRN PRN Reason: SEE COMMENTS Stop: 07/18/18 21:05 Nitroglycerin (Nitroglycerin) 0.4 mg SL Q5M PRN PRN Reason: Chest Pain Stop: 07/18/18 21:09 Tamsulosin HCl (Flomax) 0.4 mg PO HS [facility] PRN Reason: Protocol Stop: 07/18/18 22:16 Last Admin: 01/17/18 22:44 Dose: 0.4 mg Ticagrelor (Brilinta) 90 mg PO BID [facility] Stop: 07/20/18 21:01 Vitamin D (Vitamin D) 1,000 unit PO DAILY [facility] Stop: 07/19/18 09:01 Last Admin: 01/18/18 08:36 Dose: 1,000 unit - Imaging and Cardiology Echo: report reviewed Cardiac cath: report reviewed - EKG Interpretation EKG results cardiology: personally reviewed Consult Discharge Plan - Plan Referrals: NONE,PCP [Primary Care Provider] -
[2018-01-18] MEDS ORDERED: 0.9 % Sodium Chloride 1,000 ML IVC SCH (13:00)
[2018-01-18] MEDS ORDERED: 0.9 % Sodium Chloride 500 ML IVC SCH (16:16)
[2018-01-18 16:34] LABS: Calcium 8.8 mg/dL (8.6-10.3); Potassium 4.2 mEq/L (3.5-5.1)
[2018-01-18] MEDS ORDERED: *HR* Ticagrelor 90 MG TABLET PO SCH (21:00)
--- NOTE | 2018-01-18 22:57 | Electrocardiograph Report ---
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
--- NOTE | 2018-01-18 23:18 | Electrocardiograph Report ---
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
--- NOTE | 2018-01-18 23:32 | Electrocardiograph Report ---
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
[2018-01-19 04:36] LABS: BUN/Creatinine Ratio 25 (6-26); Blood Urea Nitrogen 31 mg/dL (8-23); Calcium 8.6 mg/dL (8.6-10.3); Carbon Dioxide 25 mEq/L (23-29); Chloride 109 mEq/L (98-107); Glucose 99 mg/dL (70-105); Osmolality,Calculated 299 (280-300); Sodium 141 mEq/L (136-145); eGFR For African Americans > 60 (> 60); eGFR For Non-African Americans 55 (> 60)
[2018-01-19 07:41] VITALS: BP 170/76
--- NOTE | 2018-01-19 08:05 | Discharge Summary ---
- NOTES TO OUTPATIENT PROVIDER Notes to Outpatient Provider: Admitted with rapid a fib proloned QTC. Amiodarone stopped and changed to Plavix and Coreg. Continued on Eliquis. Rate now controlled. To follow as outpatient. Date of Encounter: 01/19/18 Time of Encounter: 08:30 - Discharge Diagnosis (1) Acute exacerbation of CHF (congestive heart failure) Priority: Primary Status: Resolved Qualifiers: Heart failure type: diastolic Qualified Code(s): I50.33 - Acute on chronic diastolic (congestive) heart failure (2) Hypertensive urgency Priority: Primary Status: Resolved (3) BRIAN (acute kidney injury) Priority: Secondary Status: Resolved (4) Diabetes mellitus Priority: Secondary Status: Chronic Qualifiers: Diabetes mellitus type: type 2 Diabetes mellitus senior care insulin use: without communications and signals supervisor use Diabetes mellitus complication status: with hyperglycemia Qualified Code(s): E11.65 - Type 2 diabetes mellitus with hyperglycemia (5) Hyperlipidemia Priority: Secondary Status: Chronic Qualifiers: Hyperlipidemia type: mixed hyperlipidemia Qualified Code(s): E78.2 - Mixed hyperlipidemia (6) Urinary retention due to benign prostatic hyperplasia Priority: Secondary Status: Chronic (7) Hypothyroid Priority: Secondary Status: Chronic Qualifiers: Hypothyroidism type: acquired Qualified Code(s): E03.9 - Hypothyroidism, unspecified (8) Atrial fibrillation Priority: Secondary Status: Chronic Qualifiers: Atrial fibrillation type: paroxysmal Qualified Code(s): I48.0 - Paroxysmal atrial fibrillation (9) CAD (coronary artery disease) Priority: Secondary Status: Chronic Qualifiers: Coronary Disease-Associated Artery/Lesion type: [place] artery [place] vs. transplanted heart: [place] heart Associated angina: without angina Qualified Code(s): I25.10 - Atherosclerotic heart disease of [place] coronary artery without angina pectoris (10) Leg edema Priority: Secondary Status: Resolved (11) Prolonged QT interval Priority: Secondary Status: Resolved Hospital course: Mr. Gipson is a 87 year old male with hx of a fib and CHF presented to ED and found to be in acute exac CHF and rapid a fib. He was subsequently admitted. Mr Gipson was [facility]. He was started on rate control meds and his electrolytes were replaced. TSH high, free T4 normal but cardiology recommended increase thyroid replacement due to cardiac issues. He converted to NSR and then back to a fib at a lower rate. He diuresed well and was tolerating meds. On admission he was markedly hypertensive and was placed on IV Nitro. He was weaned off with adequate BP control. After diuresis he had a slight increase in his creatinine. He was given small amount of IV fluids and this improved. Today he is afebrile with stable vitals. He is not dyspneic at this time. He is ready for discharge home. Discharge discussed with: patient, nurse - Time Spent with Patient Total time spent providing and/or coordinating discharge services: 40min - Discharge Medications Prescriptions: Carvedilol [Coreg] 3.125 mg PO BIDWM #180 tablet Clopidogrel Bisulfate [Plavix] 75 mg PO DAILY #30 tablet Levothyroxine [Synthroid] 125 mcg PO DAILY@0630 #90 tablet Home Medications: Finasteride [Proscar] 5 mg PO DAILY 06/08/15 [History] Cholecalciferol (D-3) [Vitamin D] 1,000 unit PO DAILY 12/23/16 [History] Atorvastatin Calcium [Lipitor] 80 mg PO HS 07/06/17 [History] Isosorbide MONOnitrate (24 HR) [Imdur] 60 mg PO DAILY 12/16/17 [History] Metformin HCl [Metformin HCl ER] 500 mg PO BID 12/16/17 [History] Tamsulosin [Flomax] 0.4 mg PO DAILY 12/16/17 [History] Lisinopril [Zestril] 20 mg PO DAILY #30 tablet 12/18/17 [Rx] Clopidogrel Bisulfate [Plavix] 75 mg PO DAILY #30 tablet 01/18/18 [Rx] Apixaban [Eliquis] 5 mg PO BID tablet 01/19/18 [Rx] Carvedilol [Coreg] 3.125 mg PO BIDWM #180 tablet 01/19/18 [Rx] Clopidogrel [Plavix] 75 mg PO DAILY tablet 01/19/18 [Rx] Gabapentin [Neurontin] 600 mg PO BID capsule 01/19/18 [Rx] Levothyroxine [Synthroid] 125 mcg PO DAILY@0630 #90 tablet 01/19/18 [Rx] Nitroglycerin 0.4 mg SL Q5M PRN tab.subl 01/19/18 [Rx] Allergies/Adverse Reactions: 3 Allergy/AdvReac Type Severity Reaction Status Date / Time Penicillins [PCN] Allergy Difficulty Verified 01/17/18 15:01 Breathing Date of admission: 01/16/18 21:04 Primary care physician: PCP NONE Consults: 01/16/18 18:34 Consult to Cloth Wire Weaver [CONS] Routine Reason for SW Consult: HAS HOME HE[facility] THR[facility] [place] [facility] 01/17/18 06:48 Consult to Cardiology [CONS] Routine Comment: Consulting Provider: Cardiology Amy Reason for Consult: new CHF, STEMI in 12/2017 w/ CLAY x3 Call Completed: No 01/17/18 11:34 Consult to Nutrition [CONS] Routine Comment: Reports eating frozen dinners and drinking soda/po Consulting Provider: NUTRITION Reason for Dietary Consult: Diet Education Discharging clinician: Enrique Perdomo Anticipated date of discharge: 01/19/18 - Constitutional Vitals: Temp Pulse Resp BP Pulse Ox 97.8 F 54 17 170/76 93 01/19/18 07:28 01/19/18 07:28 01/19/18 07:28 01/19/18 07:28 01/19/18 07:28 General appearance: Present: cooperative, A&O X 3, pleasant, answers questions appropriately - Head Head exam: Present: normocephalic - Eye Eye exam: Present: conjuntiva pink - ENT ENT exam: Present: mucous membranes dry - Respiratory Respiratory exam: Present: CTAB. Absent: rales, rhonchi, wheezes - Cardiovascular Cardiovascular exam: Present: bradycardia, irregular rhythm - GI/Abdominal GI/Abdominal exam: Present: soft. Absent: tenderness - Extremities Exam Extremities exam: Present: warm. Absent: tenderness - Neurological Exam Neurological exam: Present: alert, oriented X3 - Skin Skin exam: Present: dry, warm - Patient Status Disposition: Home, Self-Care Condition: Good Functional capacity at discharge: independent ambulation Overall status at discharge: patient is progressing back to baseline - Discharge Instructions Instructions: Levothyroxine (By mouth), Carvedilol (By mouth), Clopidogrel (By mouth), Heart Failure (DC), Chronic Hypertension (DC), Fluid Restriction (GEN) Follow Up With: NONE,PCP [Primary Care Provider] - - Diet and Activity Activity: increase activity as tolerated Diet: diabetic diet, low fat, low cholesterol
[2018-01-19] MEDS: Lisinopril 20 MG TABLET PO SCH (08:50)
[2018-01-19] MEDS: Cholecalciferol (D-3) 1,000 UNIT TABLET PO SCH (08:50)
[2018-01-19] MEDS: Insulin LISPRO 300 UNITS/3 ML VIAL SQ SCH (08:50)
[2018-01-19] MEDS: Finasteride 5 MG TABLET PO SCH (08:50)
[2018-01-19] MEDS: Gabapentin 300 MG CAPSULE PO SCH (08:50)
[2018-01-19] MEDS: Apixaban 5 MG TABLET PO SCH (08:50)
[2018-01-19] MEDS: Isosorbide MONOnitrate (24 HR) 60 MG TAB.ER.24H PO SCH (08:50)
== END 2018-01-19 10:21 | disposition home or self-care (01) | DRG 292 ==
LOC: 2NENU → SUATTDRO 21:04
PROVIDERS: ADMIT General Practice; ATTEND Internal Medicine

== ENCOUNTER 2019-01-23 12:12 | Inpatient (IN) ==
--- NOTE | 2019-01-23 12:21 | Emergency Department Note ---
Disposition Clinical Impression: Bradycardia Atrial flutter Qualifiers: Atrial flutter type: unspecified Qualified Code(s): I48.92 - Unspecified atrial flutter Disposition: Admitted As Inpatient Condition: Fair [facility]errals: [facility] [Primary Care Provider] - Forms: ED Satisfaction Letter, Work/School Release Time of Disposition: 14:54 General Adult HPI - General Stated complaint: bradycardia Time Seen by Provider: 01/23/19 12:17 - Related Data Home Medications Medication Instructions Recorded Confirmed Finasteride [Proscar] 2.5 mg PO HS 06/08/15 01/23/19 Cholecalciferol (D-3) [Vitamin D] 1,000 unit PO DAILY 12/23/16 01/23/19 Levothyroxine [Synthroid] 125 mcg PO 0630 05/20/18 01/23/19 Apixaban [Eliquis] 2.5 mg PO BID 08/15/18 01/23/19 Docusate [Colace] 100 mg PO DAILY 11/09/18 01/23/19 Midodrine [ProAmatine] 2.5 mg PO 0800,1200,1700 11/09/18 01/23/19 Amiodarone [Cordarone] 100 mg PO DAILY 01/23/19 01/23/19 Ascorbic Acid [Vitamin C] 250 mg PO DAILY 01/23/19 01/23/19 Metformin HCl [Glucophage] 1,000 mg PO BID 01/23/19 01/23/19 Vitamin A 10,000 unit PO DAILY 01/23/19 01/23/19 Previous Rx's Medication Instructions Recorded Bumetanide [Bumex] 1 mg PO DAILY #30 tablet 03/29/18 Isosorbide MONOnitrate (24 HR) 60 mg PO DAILY #30 tab.er.24h 03/29/18 [Imdur] Potassium Chloride 10 meq PO DAILY #30 tab.er.prt 03/29/18 Carvedilol 12.5 mg PO BID #60 tab 08/22/18 Ferrous Sulfate 325 mg PO DAILY #30 tablet 08/22/18 Lisinopril [Zestril] 10 mg PO DAILY 365 Days tablet 08/22/18 Allergies Allergy/AdvReac Type Severity Reaction Status Date / Time aspirin [ASA] Allergy See Verified 01/23/19 13:15 Comments dipyridamole Allergy See Verified 11/09/18 14:04 Comments Penicillins [PCN] Allergy Difficulty Verified 11/09/18 14:04 Breathing rivaroxaban [From Xarelto] Allergy See Verified 11/09/18 14:04 Comments Past Medical History - Past Medical History Medical history: Reports: atrial fibrillation, cardiomyopathy, CHF, diabetes, GERD, hyperlipidemia, hypertension, myocardial infarction, thyroid disease, oth er Surgical history: Reports: angioplasty/stent, orthopedic, other Psychiatric history: Reports: no psych history - Social History Smoking Status: Former smoker Smokeless Tobacco Status: No Alcohol use: Reports: none Drug use: Reports: none Course Vital Signs Temperature 97.7 F 01/23/19 12:15 Pulse Rate 36 01/23/19 12:15 Respiratory Rate 12 01/23/19 12:15 Blood Pressure 161/58 01/23/19 12:15 O2 Sat by Pulse Oximetry 100 01/23/19 12:15 Temperature 97.7 F 01/23/19 12:15 Pulse Rate 37 01/23/19 18:37 Respiratory Rate 18 01/23/19 18:37 Blood Pressure 188/66 01/23/19 18:37 O2 Sat by Pulse Oximetry 99 01/23/19 18:37 Oxygen Delivery Oxygen Delivery Room Air Medical Decision Making - Lab Data Result diagrams: 01/23/19 12:38 01/23/19 12:38 Lab Results 01/23/19 01/23/19 Range/Units 12:38 12:38 WBC 5.1 (4.3-11.1) K/mcL RBC 3.43 L (4.19-5.50) M/mcL Hgb 10.7 L (12.9-16.9) g/dL Hct 33.2 L (37.5-50.1) % MCV 96.8 (83.0-100.0) fL MCH 31.2 (28.0-33.3) pg MCHC 32.2 (31.6-35.5) g/dL RDW 14.1 (11.5-14.5) % Plt Count 119 L (140-400) K/mcL MPV 10.8 (9.4-12.4) fL Sodium 144 (136-145) mEq/L Potassium 4.2 (3.5-5.1) mEq/L Chloride 107 (98-107) mEq/L Carbon Dioxide 27 (23-29) mEq/L BUN 30 H (8-23) mg/dL Creatinine 1.30 (0.70-1.30) mg/dL Est GFR ( Amer) > 60 (> 60) Est GFR (Non-Af Amer) 52 L (> 60) BUN/Creatinine Ratio 23 (6-26) Glucose 85 (70-105) mg/dL Calculated Osmolality 303 H (280-300) Calcium 9.1 (8.6-10.3) mg/dL Troponin I 0.03 (< 0.04) ng/mL TSH 4.893 (0.340-5.600) mcIU/mL Attestation Statement - Attestation Attestation: I saw and evalated the patient and and reviewed the resident's note/PA note/DRESSMAKER OR TAILOR note, and I agree with the resident's findings and plan. I personally supervised and was present for the sandy/critical portions of the procedures. The medical decision-making was reviewed with the DIRECTOR NUR[employer]CHO[employer]/PA/Advanced Practice Nurse/Resident Physician. I agree with the documented findings, disposition and treatment plan as described except to the extent set forth below. The patient presents from the [place] and I did see the patient immediately upon arrival and also spoke with the paramedics and the patient presents because of significant bradycardia with a rate in the 30s and he was seen at [facility] yesterday with a rate of 29 and he did have lab work done then which showed a potassium 3.9. We will repeat the lab work here. At the time the patient is asymptomatic and joking around the room however he 72 stands up he does have dizziness. No dizziness or lightheadedness when he is laying and sitting back in the cart. No pain in the head, neck, chest, abdomen or back. No vomiting or diarrhea. No blood in the urine or stool. I did review the previous labs. Our EKG here shows atrial flutter with a rate of 36 and large anterior T waves. There is inferior T-wave inversion concerning for ischemia and this is similar to the previous EKG from this morning at the [facility] 1221
--- NOTE | 2019-01-23 12:33 | Emergency Department Note ---
Disposition Clinical Impression: Bradycardia Atrial flutter Qualifiers: Atrial flutter type: unspecified Qualified Code(s): I48.92 - Unspecified atrial flutter Disposition: Admitted As Inpatient Condition: Fair Forms: ED Satisfaction Letter, Work/School Release Time of Disposition: 14:54 General Adult HPI - General Chief complaint: ED General Medical Stated complaint: bradycardia Time Seen by Provider: 01/23/19 12:17 Source: patient, EMS Limitations: no limitations Nursing Notes Reviewed: Yes Vital Signs Reviewed: Yes - History of Present Illness HPI Narrative: Patient is an 88-year-old male with a past medical history of diabetes, heart failure with preserved ejection fraction, paroxysmal atrial fibrillation, anemia. 2 days ago his home health nurse identified a bradycardic rate of 38 on exam and sent him to [facility], where he was told to discontinue his beta lambert carvedilol and return home. He reports discontinuing carvedilol at that time. He followed up at the [place] urgent care clinic this morning where he was again found to be bradycardic in the 30s and was sent from there to our emergency department. On arrival the patient continues to have a rate in the 30s but his blood pressure is stable at 161/58. He denies any symptoms over the last several days related to his bradycardia including chest pain, shortness of breath, palpitations, nausea or vomiting, blood in the stool or urine, dark tarry stools, abdominal pain or reflux.. He does report bilateral lower extremity weakness that is relatively new however he has not fallen, he does also report minimal lightheadedness on standing. Based on record review and patient reporting he has had multiple issues in the past with atrial fibrillation and rate control, he reports he has previously been recommended to have a pacemaker but he left AGAINST MEDICAL ADVICE when he felt the procedure was not performed in a timely fashion. Pain Scale: 0 - Related Data Home Medications Medication Instructions Recorded Confirmed Finasteride [Proscar] 2.5 mg PO HS 06/08/15 01/23/19 Cholecalciferol (D-3) [Vitamin D] 1,000 unit PO DAILY 12/23/16 01/23/19 Levothyroxine [Synthroid] 125 mcg PO 0630 05/20/18 01/23/19 Apixaban [Eliquis] 2.5 mg PO BID 08/15/18 01/23/19 Docusate [Colace] 100 mg PO DAILY 11/09/18 01/23/19 Midodrine [ProAmatine] 2.5 mg PO 0800,1200,1700 11/09/18 01/23/19 Amiodarone [Cordarone] 100 mg PO DAILY 01/23/19 01/23/19 Ascorbic Acid [Vitamin C] 250 mg PO DAILY 01/23/19 01/23/19 Metformin HCl [Glucophage] 1,000 mg PO BID 01/23/19 01/23/19 Vitamin A 10,000 unit PO DAILY 01/23/19 01/23/19 Previous Rx's Medication Instructions Recorded Bumetanide [Bumex] 1 mg PO DAILY #30 tablet 03/29/18 Isosorbide MONOnitrate (24 HR) 60 mg PO DAILY #30 tab.er.24h 03/29/18 [Imdur] Potassium Chloride 10 meq PO DAILY #30 tab.er.prt 03/29/18 Carvedilol 12.5 mg PO BID #60 tab 08/22/18 Ferrous Sulfate 325 mg PO DAILY #30 tablet 08/22/18 Lisinopril [Zestril] 10 mg PO DAILY 365 Days tablet 08/22/18 Allergies Allergy/AdvReac Type Severity Reaction Status Date / Time aspirin [ASA] Allergy See Verified 01/23/19 13:15 Comments dipyridamole Allergy See Verified 11/09/18 14:04 Comments Penicillins [PCN] Allergy Difficulty Verified 11/09/18 14:04 Breathing rivaroxaban [From Xarelto] Allergy See Verified 11/09/18 14:04 Comments All systems ED: reviewed and negative except as stated. Review of Systems: As Per HPI Past Medical History - Past Medical History Medical history: Reports: atrial fibrillation, cardiomyopathy, CHF, diabetes, GERD, hyperlipidemia, hypertension, myocardial infarction, thyroid disease, other Surgical history: Reports: angioplasty/stent, orthopedic, other Psychiatric history: Reports: no psych history - Social History Smoking Status: Former smoker Smokeless Tobacco Status: No Alcohol use: Reports: none Drug use: Reports: none Physical Exam - General Limitations: no limitations General appearance: alert, in no apparent distress, other (Patient is appears stated age, sitting comfortably in bed, conversive) - Head Head exam: atraumatic, normocephalic - Eye Eye exam: Present: normal appearance - Respiratory Respiratory exam: Present: normal lung sounds bilaterally - Cardiovascular Cardiovascular exam: Present: normal rhythm, bradycardia, normal heart sounds - Abdominal Exam Abdominal exam: Present: soft, Non-Tender - Extremities Exam Extremities exam: Present: normal inspection - Neurological Exam Neurological exam: Present: alert, oriented X3 - Skin Skin exam: Present: warm, dry Course Course Narrative: Patient presenting with bradycardia, we will evaluate with EKG, chest x-ray, CBC and BMP and troponin. Vital Signs Temperature 97.7 F 01/23/19 12:15 Pulse Rate 36 01/23/19 12:15 Respiratory Rate 12 01/23/19 12:15 Blood Pressure 161/58 01/23/19 12:15 O2 Sat by Pulse Oximetry 100 01/23/19 12:15 Temperature 97.7 F 01/23/19 12:15 Pulse Rate 37 01/23/19 18:37 Respiratory Rate 18 01/23/19 18:37 Blood Pressure 188/66 01/23/19 18:37 O2 Sat by Pulse Oximetry 99 01/23/19 18:37 Oxygen Delivery Oxygen Delivery Room Air Medical Decision Making - [facility] Narrative Medical decision making narrative: CBC, BMP, troponin negative for acute abnormality, he does have a mild anemia with hemoglobin 10.6. Chest x-ray demonstrates mild right lower lobe pleural effusion that is consistent with previous imaging. EKG demonstrating atrial flutter with bradycardia in the 30s without signs of acute ischemia. Case discussed with riveter portable machine who is available and where the patient, suggested a dopamine drip pain bedside in case it is needed as well as pads in case they are needed. Otherwise the patient is hemodynamically stable and cardiology can evaluate the patient as able. Case discussed with admitting hospitalist Dr. Duval and assigned hospitalist Dr. Hall in informed of patient's current clinical status and plan for. Patient accepted for admission to medicine service and will be transferred to their care in stable medical condition. - Medical Records Medical records reviewed: Yes I reviewed the patient's medical records. - Lab Data Lab results reviewed: Yes I reviewed the patient's lab results. Result diagrams: 01/23/19 12:38 01/23/19 12:38 Lab Results 01/23/19 01/23/19 Range/Units 12:38 12:38 WBC 5.1 (4.3-11.1) K/mcL RBC 3.43 L (4.19-5.50) M/mcL Hgb 10.7 L (12.9-16.9) g/dL Hct 33.2 L (37.5-50.1) % MCV 96.8 (83.0-100.0) fL MCH 31.2 (28.0-33.3) pg MCHC 32.2 (31.6-35.5) g/dL RDW 14.1 (11.5-14.5) % Plt Count 119 L (140-400) K/mcL MPV 10.8 (9.4-12.4) fL Sodium 144 (136-145) mEq/L Potassium 4.2 (3.5-5.1) mEq/L Chloride 107 (98-107) mEq/L Carbon Dioxide 27 (23-29) mEq/L BUN 30 H (8-23) mg/dL Creatinine 1.30 (0.70-1.30) mg/dL Est GFR ( Amer) > 60 (> 60) Est GFR (Non-Af Amer) 52 L (> 60) BUN/Creatinine Ratio 23 (6-26) Glucose 85 (70-105) mg/dL Calculated Osmolality 303 H (280-300) Calcium 9.1 (8.6-10.3) mg/dL Troponin I 0.03 (< 0.04) ng/mL TSH 4.893 (0.340-5.600) mcIU/mL - Radiology Data Radiology results reviewed: Yes I reviewed the patient's radiology results. Chest X-Ray 01/23/19 12:18 IMPRESSION: 1. Unchanged right pleural effusion and underlying right basilar airspace opacity most likely representing passive atelectasis. 2. Suggestion of trace left pleural effusion. D/ / Jesse Smith MD / Jesse Smith MD Interpreting Provider: Jesse Smith MD - EKG Data EKG #1 EKG attestation: Yes I reviewed and interpreted this EKG. EKG results narrative: EKG performed 01/23/19 for bradycardia. Reviewed myself and the attending. Atrial flutter with bradycardia, rate 36, MO 189, QTC 492. No ST elevation or depression or T-wave inversions indicative of acute ischemia.
[2019-01-23 12:50] LABS: Hematocrit 33.2 % (37.5-50.1); Hemoglobin 10.7 g/dL (12.9-16.9); Mean Corpuscular HGB Conc 32.2 g/dL (31.6-35.5); Mean Corpuscular Hemoglobin 31.2 pg (28.0-33.3); Mean Corpuscular Volume 96.8 fL (83.0-100.0); Mean Platelet Volume 10.8 fL (9.4-12.4); Platelet Count 119 K/mcL (140-400); Red Blood Count 3.43 M/mcL (4.19-5.50); Red Cell Distribution Width 14.1 % (11.5-14.5)
[2019-01-23 13:16] LABS: BUN/Creatinine Ratio 23 (6-26); Blood Urea Nitrogen 30 mg/dL (8-23); Calcium 9.1 mg/dL (8.6-10.3); Carbon Dioxide 27 mEq/L (23-29); Chloride 107 mEq/L (98-107); Glucose 85 mg/dL (70-105); Osmolality,Calculated 303 (280-300); Potassium 4.2 mEq/L (3.5-5.1); Sodium 144 mEq/L (136-145); Troponin I 0.03 ng/mL (< 0.04); eGFR For Non-African Americans 52 (> 60)
[2019-01-23] MEDS ORDERED: Naloxone 0.4 MG/ML INJ IVP PRN (17:11)
--- NOTE | 2019-01-23 18:28 | Internal Med History&Physical ---
Date of Encounter: 01/23/19 Time of Encounter: 18:00 Internal Medicine - H&P: HPI Chief complaint: Dizziness for a couple of days History of present illness: Mr. Gipson is a 88 year old male with pmh of atrial fibrillation, cardiomyopathy, diabetes, CHF, hypertension presenting with complaints of light headedness for a couple of days. Patient has had symptomatic bradycardia in the past and says he was supposed to get a pacemaker but left AMA because the procedure wasn't done on time. He says he hasbeen intermitttently dizzy at rest for the last couple of days with worsening when he stands up. His home health nurse took his vitals yesterday and noted his HR to be in the 30s and called EMS. He went to [facility] yesterday where he was instructed to discontinue taking his beta blockers and he was discharged. HE says he took his beta blockers this morning and has been felling dizzy again and that's why he returned to the ER In the ER, his HR was noted to be in the 30s. Cardiology were consulted who recommended having pacer pads and a dopamine drip on stand by but recommended no other acute intervention. He is currently bradycardic but otherwise stable. Denies any other acute symptoms and he is being admitted for further management Past Med Surg Social Fam HX - Past Medical History Medical history: atrial fibrillation, cardiomyopathy, CHF, diabetes, GERD, hyperlipidemia, hypertension, myocardial infarction, thyroid disease, other Additional medical history: PROSTATE Psychiatric history: no psych history - Past Surgical History Surgical History: angioplasty/stent, orthopedic, other Additional surgical history: 5 CARDIAC STENTS. lower back surgery - Social History Smoking Status: Former smoker Smokeless Tobacco Status: No Alcohol use: none Drug use: none - Family History Father Family Member Ethnicity: Non- Living Status: Hx Family Cancer: Yes Mother Family Member Ethnicity: Non- Living Status: Brother Adopted: No Family Member Ethnicity: Non- Living Status: Hx Family Cardiac Disorders: Yes Hx Family Respiratory Disorders: No Hx Family Cancer: Yes Hx Family GI Disorders: No Hx Family Endocrine Disorder: Yes Hx Family Neuromuscular Disorders: No Hx Family Neurologic Disorders: No Hx Family HEENT Disorders: No Hx Family Autoimmune Disorders: No Sister Family Member Ethnicity: Non- Living Status: Hx Family Cancer: Yes (Cervical) Internal Medicine - H&P: [facility] 2.5 mg PO HS 06/08/15 [History] Cholecalciferol (D-3) [Vitamin D] 1,000 unit PO DAILY 12/23/16 [History] Bumetanide [Bumex] 1 mg PO DAILY #30 tablet 03/29/18 [Rx] Isosorbide MONOnitrate (24 HR) [Imdur] 60 mg PO DAILY #30 tab.er.24h 03/29/18 [Rx] Potassium Chloride 10 meq PO DAILY #30 tab.er.prt 03/29/18 [Rx] Levothyroxine [Synthroid] 125 mcg PO 0630 05/20/18 [History] Apixaban [Eliquis] 2.5 mg PO BID 08/15/18 [History] Carvedilol 12.5 mg PO BID #60 tab 08/22/18 [Rx] Ferrous Sulfate 325 mg PO DAILY #30 tablet 08/22/18 [Rx] Lisinopril [Zestril] 10 mg PO DAILY 365 Days tablet 08/22/18 [Rx] Docusate [Colace] 100 mg PO DAILY 11/09/18 [History] Midodrine [ProAmatine] 2.5 mg PO 0800,1200,1700 11/09/18 [History] Amiodarone [Cordarone] 100 mg PO DAILY 01/23/19 [History] Ascorbic Acid [Vitamin C] 250 mg PO DAILY 01/23/19 [History] Metformin HCl [Glucophage] 1,000 mg PO BID 01/23/19 [History] Vitamin A 10,000 unit PO DAILY 01/23/19 [History] Allergy/AdvReac Type Severity Reaction Status Date / Time aspirin [ASA] Allergy See Verified 01/23/19 13:15 Comments dipyridamole Allergy See Verified 11/09/18 14:04 Comments Penicillins [PCN] Allergy Difficulty Verified 11/09/18 14:04 Breathing rivaroxaban [From Xarelto] Allergy See Verified 11/09/18 14:04 Comments All Systems PM: A 10-system review of systems was performed and is negative for pertinent findings except as documented above in the HPI. - Constitutional Constitutional: no chills, no fever(s), no night sweats - EENT Eyes: no change in vision, no discharge, no pain, no photophobia Ears: no ear discharge, no ear pain, no tinnitus Nose, mouth and throat: no dysphagia, no nasal discharge, no neck pain, no sore throat - Cardiovascular Cardiovascular ROS IM: no chest pain, no diaphoresis, no dyspnea, no lightheadedness, no palpitations, no syncope - Respiratory Respiratory: no cough, no dyspnea, no wheezing, no excessive phlegm production - Gastrointestinal Gastrointestinal: no abdominal pain, no diarrhea, no hematemesis, no hematochezia, no melena, no nausea, no vomiting - Musculoskeletal Musculoskeletal ROS IM: no numbness, no tingling - Integumentary Integumentary IM: no rash, no unusual bruising - Neurological Neurological ROS: dizziness, no confusion, no convulsions, no focal weakness, no numbness, no tingling, no tremor(s) - Hematologic/Lymphatic Hematologic/Lymphatic: no easy bruising - Constitutional Vitals: Temp Pulse Resp BP Pulse Ox 97.7 F 36 18 186/57 100 01/23/19 12:15 01/23/19 15:58 01/23/19 13:52 01/23/19 15:58 01/23/19 15:58 Exam: NAD. Bradycardic - Head Head exam: Present: atraumatic, normocephalic - Eye Eye exam: Present: PERRL, conjuntiva pink, sclera anicteric Pupils: Present: PERRL - Neck Neck exam general surgery: Present: supple, trachea midline. Absent: lymphadeno bartolo - Respiratory Respiratory exam: Present: CTAB. Absent: accessory muscle use, rales, rhonchi, wheezes - Cardiovascular Cardiovascular exam: Present: bradycardia, RRR, +S1, +S2. Absent: diastolic murmur, gallop, rubs, systolic murmur - GI/Abdominal GI/Abdominal exam: Present: normal bowel sounds, soft, no peritoneal signs. Absent: distended, tenderness - Extremities Exam Extremities exam: Present: warm, radial pulses palpable and symmetrical. Absent: calf tenderness, cyanotic, pedal edema - Neurological Exam Neurological exam: Present: CN II-XII intact, oriented X3, no focal deficits. Absent: pronater drift, facial droop, speech deficit - Skin Skin exam: Present: dry, intact Internal Med - H&P Results - Labs CBC & Chem 7: 01/23/19 12:38 01/23/19 12:38 Labs: Short CBC 01/23/19 Range/Units 12:38 WBC 5.1 (4.3-11.1) K/mcL Hgb 10.7 L (12.9-16.9) g/dL Hct 33.2 L (37.5-50.1) % Plt Count 119 L (140-400) K/mcL BMP 01/23/19 12:38 Sodium 144 Potassium 4.2 Chloride 107 Carbon Dioxide 27 BUN 30 H Creatinine 1.30 Glucose 85 Calcium 9.1 Cardiac Enzymes 01/23/19 Range/Units 12:38 Troponin I 0.03 (< 0.04) ng/mL - Impressions ITS Impressions Chest X-Ray 01/23/19 12:18 IMPRESSION: 1. Unchanged right pleural effusion and underlying right basilar airspace opacity most likely representing passive atelectasis. 2. Suggestion of trace left pleural effusion. D/ / Jesse Smith MD / Jesse Smith MD Interpreting Provider: Jesse Smith MD - Assessment and Plan (1) Symptomatic bradycardia Current Visit: Yes Status: Acute Assessment and plan: Patient comes in with dizziness with a heart rate of 37 with symptomatic bradycardia Cardiology consulted and had ER pace pacer pads at bedside and order a dopamine drip, to be started if he decompensates For now, will hold AV anna marie blocking agents. Monitor heart rate OBtain TSH (2) Hypothyroidism Current Visit: Yes Status: Acute Assessment and plan: Obtain TSH. Resume levothyroxine Qualifiers: Qualified Code(s): E03.9 - Hypothyroidism, unspecified (3) (HFpEF) heart failure with preserved ejection fraction Current Visit: Yes Status: Chronic Assessment and plan: No acute exacerbation. Resume home meds Qualifiers: Qualified Code(s): I50.32 - Chronic diastolic (congestive) heart failure (4) CAD (coronary artery disease) Current Visit: Yes Status: Chronic Assessment and plan: Resume home meds Qualifiers: Coronary Disease-Associated Artery/Lesion type: [place] artery [place] vs. transplanted heart: [place] heart Associated angina: without angina Qualified Code(s): I25.10 - Atherosclerotic heart disease of [place] coronary artery without angina pectoris (5) Hypertension Current Visit: Yes Status: Chronic Assessment and plan: Resume lisinopril and hydralazine prn Qualifiers: Hypertension type: essential hypertension Qualified Code(s): I10 - Essential (primary) hypertension (6) DVT prophylaxis Current Visit: Yes Status: Acute Assessment and plan: On apixaban - Time Spent With Patient Total time spent is greater than 50% in coordination of care (as documented) at patient's floor/unit and/or counseling patient:
[2019-01-23 19:11] LABS: Thyroid Stimulating Hormone 4.893 mcIU/mL (0.340-5.600)
[2019-01-23] MEDS: Finasteride 5 MG TABLET PO SCH (21:43)
[2019-01-23] MEDS: Apixaban 2.5 MG TABLET PO SCH (21:44)
[2019-01-23] MEDS ORDERED: Ibuprofen 600 MG TABLET PO PRN (22:41)
[2019-01-23] MEDS ORDERED: Ondansetron 4 MG/2 ML VIAL IVP PRN (22:50)
[2019-01-23] MEDS: Gabapentin 100 MG CAPSULE PO SCH (23:18)
[2019-01-23 23:38] LABS: VBG Ionized Calcium 1.19 mmol/L (1.15-1.35)
[2019-01-23 23:50] LABS: BUN/Creatinine Ratio 25 (6-26); Blood Urea Nitrogen 27 mg/dL (8-23); Carbon Dioxide 22 mEq/L (23-29); Chloride 109 mEq/L (98-107); Glucose 99 mg/dL (70-105); Magnesium 1.8 mg/dL (1.6-2.6); Osmolality,Calculated 297 (280-300); Potassium 3.8 mEq/L (3.5-5.1); Sodium 141 mEq/L (136-145); eGFR For Non-African Americans > 60 (> 60)
[2019-01-24] MEDS ORDERED: Ondansetron 4 MG/2 ML VIAL IVP SCH
[2019-01-24 05:43] LABS: Basophils % 0.5 %; Eosinophils # 0.1 K/mcL (0.0-0.6); Eosinophils % 2.3 %; Hematocrit 32.1 % (37.5-50.1); Hemoglobin 10.4 g/dL (12.9-16.9); Immature Granulocytes % 0.2 % (0-4); Lymphocytes # 1.6 K/mcL (0.6-4.6); Lymphocytes % 26.3 %; Mean Corpuscular HGB Conc 32.4 g/dL (31.6-35.5); Mean Corpuscular Hemoglobin 30.9 pg (28.0-33.3); Mean Corpuscular Volume 95.3 fL (83.0-100.0); Mean Platelet Volume 11.5 fL (9.4-12.4); Monocytes # 0.6 K/mcL (0.0-1.3); Monocytes % 9.2 %; Neutrophils # 3.7 K/mcL (1.6-8.9); Platelet Count 115 K/mcL (140-400); Red Blood Count 3.37 M/mcL (4.19-5.50); Red Cell Distribution Width 14.1 % (11.5-14.5); Segmented Neutrophils % 61.5 %
[2019-01-24 06:01] LABS: BUN/Creatinine Ratio 22 (6-26); Blood Urea Nitrogen 26 mg/dL (8-23); Calcium 8.7 mg/dL (8.6-10.3); Carbon Dioxide 21 mEq/L (23-29); Chloride 110 mEq/L (98-107); Glucose 92 mg/dL (70-105); Magnesium 1.9 mg/dL (1.6-2.6); Osmolality,Calculated 294 (280-300); Phosphorous 2.7 mg/dL (2.7-4.5); Potassium 3.5 mEq/L (3.5-5.1); Sodium 140 mEq/L (136-145); eGFR For Non-African Americans 60 (> 60)
--- NOTE | 2019-01-24 08:30 | Internal Med Progress Note ---
Hospitalist Progress Note - Encounter Date of Encounter: 01/24/19 Time of Encounter: 08:30 - Subjective Interval History: Amitted for symptomatic bradycardia - Exam Vitals: Temp Pulse Resp BP Pulse Ox 98.0 F 35 16 162/50 99 01/24/19 07:28 01/24/19 07:28 01/24/19 07:28 01/24/19 07:28 01/24/19 07:28 Exam: General appearance: Present: A&O X 3, no acute distress Head exam: Present: normocephalic Respiratory exam: Present: CTAB. Absent: accessory muscle use, rales, rhonchi, wheezes Cardiovascular exam:Bradycardic GI/Abdominal exam: Soft, NT, ND, +BS Extremities exam: Absent: pedal edema Neurological exam: Present: alert, oriented X3, no focal deficits. Absent: altered - Assessment and Plan (1) Symptomatic bradycardia Current Visit: Yes Status: Acute Assessment and Plan: Patient comes in with dizziness with a heart rate of 37 with symptomatic bradycardia Cardiology consulted and had ER pace pacer pads at bedside and order a dopamine drip, to be started if he decompensates For now, will hold AV anna marie blocking agents. Monitor heart rate TSH came back WNL (2) Hypothyroidism Current Visit: Yes Status: Acute Assessment and Plan: TSH WNL. Resume levothyroxine (3) (HFpEF) heart failure with preserved ejection fraction Current Visit: Yes Status: Chronic Assessment and Plan: No acute exacerbation. Resume home meds (4) CAD (coronary artery disease) Current Visit: Yes Status: Chronic Assessment and Plan: Resume home meds (5) Hypertension Current Visit: Yes Status: Chronic Assessment and Plan: Resume lisinopril and hydralazine prn (6) DVT prophylaxis Current Visit: Yes Status: Acute Assessment and Plan: On apixaban - Time Spent with Patient Total time spent is greater than 50% in coordination of care (as documented) at patient's floor/unit and/or counseling patient: Internal Medicine: Result - Labs CBC & Chem 7: 01/24/19 05:13 01/24/19 05:13 Labs: Short CBC 01/23/19 01/24/19 Range/Units 12:38 05:13 WBC 5.1 6.0 (4.3-11.1) K/mcL Hgb 10.7 L 10.4 L (12.9-16.9) g/dL Hct 33.2 L 32.1 L (37.5-50.1) % Plt Count 119 L 115 L (140-400) K/mcL Neutrophils # 3.7 (1.6-8.9) K/mcL BMP 01/23/19 01/23/19 01/24/19 12:38 23:09 05:13 Sodium 144 141 140 Potassium 4.2 3.8 3.5 Chloride 107 109 H 110 H Carbon Dioxide 27 22 L 21 L BUN 30 H 27 H 26 H Creatinine 1.30 1.07 1.16 Glucose 85 99 92 Calcium 9.1 9.0 8.7 Cardiac Enzymes 01/23/19 Range/Units 12:38 Troponin I 0.03 (< 0.04) ng/mL - Impressions Impressions Chest X-Ray 01/23/19 12:18 IMPRESSION: 1. Unchanged right pleural effusion and underlying right basilar airspace opacity most likely representing passive atelectasis. 2. Suggestion of trace left pleural effusion. D/ / Jesse Smith MD / Jesse Smith MD Interpreting Provider: Jesse Smith MD Consult Discharge Plan - Plan Referrals: LILIANA,PCP [Primary Care Provider] - 02/04/19 2:45 pm (2) Hypothyroidism Qualifiers: Qualified Code(s): E03.9 - Hypothyroidism, unspecified (3) (HFpEF) heart failure with preserved ejection fraction Qualifiers: Qualified Code(s): I50.32 - Chronic diastolic (congestive) heart failure (4) CAD (coronary artery disease) Qualifiers: Coronary Disease-Associated Artery/Lesion type: [place] artery [place] vs. transplanted heart: [place] heart Associated angina: without angina Qualified Code(s): I25.10 - Atherosclerotic heart disease of [place] coronary artery without angina pectoris (5) Hypertension Qualifiers: Hypertension type: essential hypertension Qualified Code(s): I10 - Essential (primary) hypertension
[2019-01-24] MEDS: Cholecalciferol (D-3) 1,000 UNIT TABLET PO SCH (09:40)
[2019-01-24] MEDS: Apixaban 2.5 MG TABLET PO SCH ×2 (09:40→20:40)
[2019-01-24] MEDS: Bumetanide 1 MG TABLET PO SCH (09:40)
[2019-01-24] MEDS: Ascorbic Acid 500 MG TABLET PO SCH (09:40)
[2019-01-24] MEDS: Isosorbide MONOnitrate (24 HR) 60 MG TAB.ER.24H PO SCH (09:40)
[2019-01-24] MEDS: Gabapentin 100 MG CAPSULE PO SCH ×2 (09:41→20:40)
[2019-01-24] MEDS: Lisinopril 20 MG TABLET PO SCH (09:41)
[2019-01-24] MEDS: VITAMIN A 10000 UNIT PO SCH (09:48)
[2019-01-24 12:45] LABS: Troponin I 0.03 ng/mL (< 0.04)
--- NOTE | 2019-01-24 15:51 | Cardiology Consult Note ---
<SrinivasanJustin Sherri - Last Filed: 01/24/19 16:07> Date of Encounter: 01/24/19 Time of Encounter: 15:00 Assessment and Plan (1) Symptomatic bradycardia Current Visit: Yes Status: Acute Per Cardiology: Atrial flutter in the 30s currently on telemetry with average heart rate is 24 hours 37. Home medication Coreg 12.5 mg by mouth twice a day-- currently on hold. Last echo 12/2017: Impressions: LVEF 55%. Normal LV chamber size and function. Mild concentric left ventricular hypertrophy. Mild left ventricular diastolic dysfunction. Normal right ventricular structure and function. Mild aortic regurgitation. Mild mitral regurgitation. No evidence of pulmonary hypertension. Left Ventricular Wall Motion: Rest Echo Findings All wall segments showed normal motion. Clinically stable and mentating. TSH and electrolytes stable. Not on dopamine drip. Will check echo. (2) CAD (coronary artery disease) Current Visit: Yes Status: Chronic Per Cardiology: Chest pain free. Troponins negative 2. Left heart catheterization December 2017: Impressions: There is severe three vessel coronary artery disease. The left ventricle is normal and has normal contractility EF 50% Patient had successful Drug-Eluting Stent placement in the distal RCA. There is a previous stent in Mid RCA with moderate in-stent stenosis that was intervened on. Patient had successful PTCA/Drug-Eluting Stent placement in the mid RCA. Patient had successful PTCA/Drug-Eluting Stent placement in the proximal RCA. Qualifiers: Coronary Disease-Associated Artery/Lesion type: [place] artery [place] vs. transplanted heart: [place] heart Associated angina: without angina Qualified Code(s): I25.10 - Atherosclerotic heart disease of [place] coronary artery without angina pectoris (3) Atrial flutter Current Visit: Yes Status: Chronic Per Cardiology: Home beta lambert on hold. Regarding long-term anticoagulation on Eliquis 2.5mg PO BID. H&H stable. Qualifiers: Atrial flutter type: unspecified Qualified Code(s): I48.92 - Unspecified atrial flutter Discussion w patient/family: The assessment and plan as outlined above was discussed with the patient and/or family members who expressed understanding and agreement. All questions were answered. Thank you for involving us in the care of your patient. Please call with any questions. History of Present Illness Consult date: 01/24/19 Consult reason: Bradycardia Chief complaint: Fatigue, dizziness History of present illness: Mr. Gipson is a 88 year old male with a relevant past medical history of CAD, atrial fibrillation, CHF, cardiomyopathy, DM 2, GERD, HLD, HTN, past history of nicotine abuse. Previous cardiac testing: [facility] 12/23/2016: Left main normal. LAD ostial 40-50% stenosis, mid 50-60% stenosis. D1 90% stenosis. Circumflex distal 50% stenosis. RCA distal 99% stenosis. CLAY placed in distal RCA on 12/25/2016 after aspirin desensitization performed. TTE 12/25/2016: LVEF 55%. Mild concentric LVH. Mild aortic, mitral, tricuspid regurgitation. No pulmonary hypertension. Had electrophysiology consult July 2017 with recommendations for antiarrhythmic therapy and pacemaker. It appears patient left AMA. Seen by Cardiology 12/2017 for [place] with cath done. Cardiology consult for concerns of symptomatically bradycardia. Patient seen with family at bedside and indicates increased fatigue over the past one week with episodes of dizziness. He denies any recent falls. He denies any chest pain, palpitations, any active bleeding or blood loss. Denies any edema. Reports home health aide recommended going to the ER for his symptoms and slow heart rate. Patient reports was transferred to the [place] and subsequently transferred to [facility] to evaluate need for pacemaker. He reports was evaluated about one year ago or possible need for pacemaker however he left AMA. Past Med Surg Social Fam HX - Past Medical History Attestation: Yes The following information was validated with the patient. Source: patient, old records reviewed Medical history: atrial fibrillation, cardiomyopathy, CHF, diabetes, GERD, hyperlipidemia, hypertension, myocardial infarction, thyroid disease, other Additional medical history: PROSTATE Psychiatric history: no psych history - Past Surgical History Surgical History: angioplasty/stent, orthopedic, other Additional surgical history: 5 CARDIAC STENTS. lower back surgery - Social History Smoking Status: Former smoker Smokeless Tobacco Status: No Alcohol use: none Drug use: none - Family History Father Family Member Ethnicity: Non- Living Status: Hx Family Cancer: Yes Mother Family Member Ethnicity: Non- Living Status: Brother Adopted: No Family Member Ethnicity: Non- Living Status: Hx Family Cardiac Disorders: Yes Hx Family Respiratory Disorders: No Hx Family Cancer: Yes Hx Family GI Disorders: No Hx Family Endocrine Disorder: Yes Hx Family Neuromuscular Disorders: No Hx Family Neurologic Disorders: No Hx Family HEENT Disorders: No Hx Family Autoimmune Disorders: No Sister Family Member Ethnicity: Non- Living Status: Hx Family Cancer: Yes (Cervical) Medications and Allergies Finasteride [Proscar] 2.5 mg PO HS 06/08/15 [History] Cholecalciferol (D-3) [Vitamin D] 1,000 unit PO DAILY 12/23/16 [History] Bumetanide [Bumex] 1 mg PO DAILY #30 tablet 03/29/18 [Rx] Isosorbide MONOnitrate (24 HR) [Imdur] 60 mg PO DAILY #30 tab.er.24h 03/29/18 [Rx] Potassium Chloride 10 meq PO DAILY #30 tab.er.prt 03/29/18 [Rx] Levothyroxine [Synthroid] 125 mcg PO 0630 05/20/18 [History] Apixaban [Eliquis] 2.5 mg PO BID 08/15/18 [History] Carvedilol 12.5 mg PO BID #60 tab 08/22/18 [Rx] Ferrous Sulfate 325 mg PO DAILY #30 tablet 08/22/18 [Rx] Lisinopril [Zestril] 10 mg PO DAILY 365 Days tablet 08/22/18 [Rx] Docusate [Colace] 100 mg PO DAILY 11/09/18 [History] Midodrine [ProAmatine] 2.5 mg PO 0800,1200,1700 11/09/18 [History] Amiodarone [Cordarone] 100 mg PO DAILY 01/23/19 [History] Ascorbic Acid [Vitamin C] 250 mg PO DAILY 01/23/19 [History] Metformin HCl [Glucophage] 1,000 mg PO BID 01/23/19 [History] Vitamin A 10,000 unit PO DAILY 01/23/19 [History] Allergy/AdvReac Type Severity Reaction Status Date / Time aspirin [ASA] Allergy See Verified 01/23/19 13:15 Comments dipyridamole Allergy See Verified 11/09/18 14:04 Comments Penicillins [PCN] Allergy Difficulty Verified 11/09/18 14:04 Breathing rivaroxaban [From Xarelto] Allergy See Verified 11/09/18 14:04 Comments All Systems Review: The remainder of the systems were reviewed and are negative - Constitutional Constitutional: fatigue - Cardiovascular Cardiovascular: as per HPI, lightheadedness Physical Examination Vital Signs, Last 4 Hours Pulse 01/24/19 11:53 36 Selected Entries 01/24/19 11:02 01/24/19 11:53 Temperature 97.8 F Pulse Rate 36 Respiratory Rate 16 Blood Pressure 159/68 O2 Sat by Pulse Oximetry 95 Oxygen Flow Rate (LPM) 2 Oxygen Delivery Method Nasal Cannula General: Conversant, No Apparent Distress HEENT: Atraumatic, Normocephaly, Mucus Membranes Moist Neck: No JVD, Normal carotid pulses Cardiac: Reg Rate and Rhythm, Normal S1 and S2, No Murmur Lungs: Normal Breath Sounds, No Wheeze, Rales, Rhonchi Neuro: Alert and responsive, No focal deficits noted Abdomen: Soft, Non-Tender Skin: No rashes noted on visualized skin Musculoskeletal: No Chest Wall Tenderness Extremities: No Clubbing, No Cyanosis, No Edema, Normal Pulses Results 01/24/19 05:13 01/24/19 05:13 Lab Results Laboratory Tests 01/23/19 01/23/19 01/24/19 12:38 23:09 05:13 Hgb 10.4 L Hct 32.1 L Plt Count 115 L Potassium Creatinine Est GFR (Non-Af Amer) Magnesium Troponin I 0.03 0.03 TSH 4.893 01/24/19 05:13 Hgb Hct Plt Count Potassium 3.5 Creatinine 1.16 Est GFR (Non-Af Amer) 60 Magnesium 1.9 Troponin I TSH ITS Impressions Chest X-Ray 01/23/19 12:18 IMPRESSION: 1. Unchanged right pleural effusion and underlying right basilar airspace opacity most likely representing passive atelectasis. 2. Suggestion of trace left pleural effusion. D/ / Jesse Smith MD / Jesse Smith MD Interpreting Provider: Jesse Smith MD Active Medications Apixaban (Eliquis) 2.5 mg PO BID [facility] Stop: 07/25/19 21:01 Last Admin: 01/24/19 09:40 Dose: 2.5 mg Documented by: Ascorbic Acid (Vitamin C) 250 mg PO DAILY [facility] Stop: 07/26/19 09:01 Last Admin: 01/24/19 09:40 Dose: 250 mg Documented by: Bumetanide (Bumex) 1 mg PO DAILY [facility] Stop: 07/26/19 09:01 Last Admin: 01/24/19 09:40 Dose: 1 mg Documented by: Docusate Sodium (Colace) 100 mg PO DAILY [facility]; Protocol Stop: 07/26/19 09:01 Last Admin: 01/24/19 09:41 Dose: 100 mg Documented by: Ferrous Sulfate (Ferrous Sulfate) 325 mg PO DAILY [facility] Stop: 07/26/19 09:01 Last Admin: 01/24/19 09:41 Dose: 325 mg Documented by: Finasteride (Proscar) 2.5 mg PO HS [facility]; Protocol Stop: 07/25/19 21:01 Last Admin: 01/23/19 21:43 Dose: 2.5 mg Documented by: Gabapentin (Neurontin) 500 mg PO BID [facility] Stop: 07/25/19 22:46 Last Admin: 01/24/19 09:41 Dose: 500 mg Documented by: Hydralazine HCl (Hydralazine) 10 mg IVP Q6HR PRN PRN Reason: Hypertension Stop: 07/25/19 18:42 Last Admin: 01/23/19 21:43 Dose: 10 mg Documented by: Dopamine HCl/Dextrose (Dopamine Premix 400mg/250ml) 400 mg in 250 mls @ 7.978 mls/hr IVC .Q24H [facility]; Protocol Stop: 07/25/19 14:31 Ibuprofen (Motrin) 600 mg PO Q6H PRN; Protocol PRN Reason: Pain Stop: 07/25/19 22:42 Isosorbide Mononitrate (Imdur) 60 mg PO DAILY [facility] Stop: 07/26/19 09:01 Last Admin: 01/24/19 09:40 Dose: 60 mg Documented by: Levothyroxine Sodium (Synthroid) 125 mcg PO 0630 [facility] Stop: 07/26/19 06:31 Last Admin: 01/24/19 06:13 Dose: 125 mcg Documented by: Lisinopril (Zestril) 10 mg PO DAILY [facility]; Protocol Stop: 07/26/19 09:01 Last Admin: 01/24/19 09:41 Dose: 10 mg Documented by: Naloxone HCl (Narcan) 0.4 mg IVP Q2MPRN PRN PRN Reason: SEE COMMENTS Stop: 07/25/19 17:12 Ondansetron HCl (Zofran) 4 mg IVP Q6H PRN; Protocol PRN Reason: Nausea Stop: 07/25/19 22:51 Pharmacy Profile Note (Patient Taking Own Medication) 1 each PO DAILY [facility] Stop: 07/26/19 09:01 Last Admin: 01/24/19 09:48 Dose: Not Given Documented by: Potassium Chloride (Potassium Chloride) 10 meq PO DAILY [facility] Stop: 07/26/19 09:01 Last Admin: 01/24/19 09:48 Dose: 10 meq Documented by: Vitamin D (Vitamin D) 1,000 unit PO DAILY [facility] Stop: 07/26/19 09:01 Last Admin: 01/24/19 09:40 Dose: 1,000 unit Documented by: - Imaging and Cardiology Echo: report reviewed Consult Discharge Plan - Plan Referrals: [place],PCP [Primary Care Provider] - 02/04/19 2:45 pm <Tena Waller - Last Filed: 01/24/19 16:31> Date of Encounter: 01/24/19 - Attending Attestation I examined this patient and my medical decision-making was reviewed with the BATH STEWARD. I agree with the documented findings, disposition and treatment plan as described. Patient presents from [place] with heart rates in the 30's. Patient clinically stable. No reversible metabolic derangement. On Coreg 12.5mg BID. Recommend stopping the medication. Dr. Frantz Philippe to take over service tomorrow. Will defer management to EP. Assessment and Plan Discussion w patient/family: The assessment and plan as outlined above was discussed with the patient and/or family members who expressed understanding and agreement. All questions were answered. Thank you for involving us in the care of your patient. Please call with any questions. History of Present Illness History of present illness: Mr. Gipson is a 88 year old male All Systems Review: The remainder of the systems were reviewed and are negative Results 01/24/19 05:13 01/24/19 05:13 Lab Results 01/23/19 01/23/19 01/24/19 12:38 23:09 05:13 WBC 6.0 Hgb 10.4 L Hct 32.1 L Plt Count 115 L Sodium 141 Potassium 3.8 Chloride 109 H Carbon Dioxide 22 L BUN 27 H Creatinine 1.07 Glucose 99 Calcium 9.0 Magnesium 1.8 Troponin I 0.03 TSH 4.893 01/24/19 05:13 WBC Hgb Hct Plt Count Sodium 140 Potassium 3.5 Chloride 110 H Carbon Dioxide 21 L BUN 26 H Creatinine 1.16 Glucose 92 Calcium 8.7 Magnesium 1.9 Troponin I TSH
--- NOTE | 2019-01-24 17:22 | Electrocardiograph Report ---
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
[2019-01-24] MEDS: Finasteride 5 MG TABLET PO SCH (20:40)
--- NOTE | 2019-01-25 07:24 | Internal Med Progress Note ---
Hospitalist Progress Note - Encounter Date of Encounter: 01/25/19 Time of Encounter: 07:30 - Subjective Interval History: No acute events overnight - Exam Vitals: Temp Pulse Resp BP Pulse Ox 98.3 F 36 18 146/68 98 01/25/19 07:07 01/25/19 07:07 01/25/19 07:07 01/25/19 07:07 01/25/19 07:07 Exam: General appearance: Present: A&O X 3, no acute distress Head exam: Present: normocephalic Respiratory exam: Present: CTAB. Absent: accessory muscle use, rales, rhonchi, wheezes Cardiovascular exam:Bradycardic GI/Abdominal exam: Soft, NT, ND, +BS Extremities exam: Absent: pedal edema Neurological exam: Present: alert, oriented X3, no focal deficits. Absent: altered - Assessment and Plan (1) Symptomatic bradycardia Current Visit: Yes Status: Acute Assessment and Plan: Patient comes in with dizziness with a heart rate of 37 with symptomatic br adycardia Cardiology consulted and had ER pace pacer pads at bedside and order a dopamine drip, to be started if he decompensates For now, will hold AV anna marie blocking agents. Monitor heart rate TSH came back wnl Cardiology plan for pacemaker placement on sunday if patient stays till then (2) Hypothyroidism Current Visit: Yes Status: Acute Assessment and Plan: TSH WNL. Resume levothyroxine (3) (HFpEF) heart failure with preserved ejection fraction Current Visit: Yes Status: Chronic Assessment and Plan: No acute exacerbation. Resume home meds (4) CAD (coronary artery disease) Current Visit: Yes Status: Chronic Assessment and Plan: Resume home meds (5) Hypertension Current Visit: Yes Status: Chronic Assessment and Plan: Resume lisinopril and hydralazine prn (6) DVT prophylaxis Current Visit: Yes Status: Acute Assessment and Plan: On apixaban - Time Spent with Patient Total time spent is greater than 50% in coordination of care (as documented) at patient's floor/unit and/or counseling patient: Internal Medicine: Result - Labs CBC & Chem 7: 01/24/19 05:13 01/24/19 05:13 Labs: Cardiac Enzymes 01/23/19 Range/Units 23:09 Troponin I 0.03 (< 0.04) ng/mL Consult Discharge Plan - Plan [facility]: [facility] Care Provider[facility] - 02/04/19 2:45 pm (2) Hypothyroidism Qualifiers: Qualified Code(s): E03.9 - Hypothyroidism, unspecified (3) (HFpEF) heart failure with preserved ejection fraction Qualifiers: Qualified Code(s): I50.32 - Chronic diastolic (congestive) heart failure (4) CAD (coronary artery disease) Qualifiers: Coronary Disease-Associated Artery/Lesion type: [place] artery [place] vs. transplanted heart: [place] heart Associated angina: without angina Qualified Code(s): I25.10 - Atherosclerotic heart disease of [place] coronary artery without angina pectoris (5) Hypertension Qualifiers: Hypertension type: essential hypertension Qualified Code(s): I10 - Essential (primary) hypertension
[2019-01-25] MEDS: Apixaban 2.5 MG TABLET PO SCH ×2 (09:33→20:10)
[2019-01-25] MEDS: Isosorbide MONOnitrate (24 HR) 60 MG TAB.ER.24H PO SCH (09:33)
[2019-01-25] MEDS: Bumetanide 1 MG TABLET PO SCH (09:33)
[2019-01-25] MEDS: Cholecalciferol (D-3) 1,000 UNIT TABLET PO SCH (09:33)
[2019-01-25] MEDS: Gabapentin 100 MG CAPSULE PO SCH ×2 (09:33→20:10)
[2019-01-25] MEDS: Lisinopril 20 MG TABLET PO SCH (09:33)
[2019-01-25] MEDS: Ascorbic Acid 500 MG TABLET PO SCH (09:33)
[2019-01-25] MEDS: VITAMIN A 10000 UNIT PO SCH (09:34)
--- NOTE | 2019-01-25 10:43 | Cardiology Progress Note ---
Date of Encounter: 01/25/19 Time of Encounter: 10:40 Assessment and Plan (1) Symptomatic bradycardia Current Visit: Yes Status: Acute Per Cardiology: Atrial flutter in the 30s currently on telemetry with average heart rate 12 hrs 36. Home medication Coreg 12.5 mg PO BID on hold. ECHO: Impressions: LVEF 55-60%. Moderate concentric left ventricular hypertrophy. Indeterminate diastolic function. Normal right ventricular structure and function. Mild aortic regurgitation. Mild tricuspid regurgitation. Mild pulmonary hypertension.Estimated RVSP is 36 mmHg. There is a small to moderate pericardial effusion present without echocardiographic evidence of tamponade Left Ventricular Wall Motion: Rest Echo Findings All wall segments showed normal motion. Clinically stable and normal mentation. TSH and electrolytes stable. Not on dopamine drip. Discussed and reviewed with Dr. Ana Philippe, recs for pacer Sunday by Dr. Frantz Philippe. Patient appears agreeable to proceed. If does not leave AMA, would most likely need to hold Eliquis before pacer (will evaluate). (2) CAD (coronary artery disease) Current Visit: Yes Status: Chronic Per Cardiology: Chest pain free. Troponins negative 2. Left heart catheterization December 2017: Impressions: There is severe three vessel coronary artery disease. The left ventricle is normal and has normal contractility EF 50% Patient had successful Drug-Eluting Stent placement in the distal RCA. There is a previous stent in Mid RCA with moderate in-stent stenosis that was intervened on. Patient had successful PTCA/Drug-Eluting Stent placement in the mid RCA. Patient had successful PTCA/Drug-Eluting Stent placement in the proximal RCA. Qualifiers: Coronary Disease-Associated Artery/Lesion type: [place] artery [place] vs. transplanted heart: [place] heart Associated angina: without angina Qualified Code(s): I25.10 - Atherosclerotic heart disease of [place] coronary artery without angina pectoris (3) Atrial flutter Current Visit: Yes Status: Chronic Per Cardiology: Home beta lambert on hold. Regarding long-term anticoagulation on Eliquis 2.5mg PO BID. H&H stable. Qualifiers: Atrial flutter type: unspecified Qualified Code(s): I48.92 - Unspecified atrial flutter Discussion w patient/family: The assessment and plan as outlined above was discussed with the patient and/or family members who expressed understanding and agreement. All questions were answered. Thank you for involving us in the care of your patient. Please call with any questions. Subjective Principal diagnosis: Aflutter SVR Interval history: Patient denies any new concerns or complaints. Reports continues to feel overall general fatigue. He denies any chest pain, dizziness, syncope, falls, palpitations. Objective Vital Signs, Last 4 Hours Temp Pulse Resp BP Pulse Ox 01/25/19 07:07 98.3 F 36 18 146/68 98 General: Conversant, No Apparent Distress HEENT: Atraumatic, Normocephaly, Mucus Membranes Moist Neck: No JVD, Normal carotid pulses Cardiac: No Murmur, Other (Irregularly irregular) Lungs: Normal Breath Sounds, No Wheeze, Rales, Rhonchi Neuro: Alert and responsive, No focal deficits noted Abdomen: Soft, Non-Tender Skin: No rashes noted on visualized skin Musculoskeletal: No Chest Wall Tenderness Extremities: No Clubbing, No Cyanosis, No Edema, Normal Pulses Results 01/24/19 05:13 01/24/19 05:13 Lab Results Laboratory Tests 01/23/19 01/23/19 01/24/19 12:38 23:09 05:13 Hgb 10.4 L Hct 32.1 L Creatinine Est GFR (Non-Af Amer) Troponin I 0.03 0.03 TSH 4.893 01/24/19 05:13 Hgb Hct Creatinine 1.16 Est GFR (Non-Af Amer) 60 Troponin I TSH Impressions Echocardiogram 01/24/19 16:01 Impressions: LVEF 55-60%. Moderate concentric left ventricular hypertrophy. Indeterminate diastolic function. Normal right ventricular structure and function. Mild aortic regurgitation. Mild tricuspid regurgitation. Mild pulmonary hypertension.Estimated RVSP is 36 mmHg. There is a small to moderate pericardial effusion present without echocardiographic evidence of tamponade Left Ventricular Wall Motion: Rest Echo Findings All wall segments showed normal motion. Findings: Pulmonary Artery * Pulmonary artery not well visualized. IVC * Normal IVC dimensions and inspiratory collapse. Pericardium * There is a small to moderate pericardial effusion present without echocardiographic evidence of tamponade * Aorta * Normally sized aortic root. Pulmonic Valve * Pulmonic valve not well visualized. Tricuspid Valve * Normal tricuspid valve structure. * Mild tricuspid regurgitation. * Mild pulmonary hypertension.Estimated RVSP is 36 mmHg. * Estimated RVSP is 36 mmHg. * Estimated RA pressure is 5 mmHg. Mitral Valve * Normal mitral valve structure. * No mitral stenosis. * Trace mitral regurgitation. Aortic Valve * Trileaflet aortic valve. * Normal aortic valve structure. * No aortic stenosis. * Mild aortic regurgitation. Interatrial Septum * Interatrial septum not well evaluated. Right Atrium * Mildly dilated right atrium. Left Atrium * Mildly dilated left atrium. Right Ventricle * Normal right ventricular structure and function. Left Ventricle * LVEF 55-60%. * Moderate concentric left ventricular hypertrophy. * Indeterminate diastolic function. * Atypical septal motion consistent with bundle branch block. * Normal LV chamber size. Study Quality * Technically adequate exam. ECG Findings * Atrial flutter with BBB. Active Medications Apixaban (Eliquis) 2.5 mg PO BID [facility] Stop: 07/25/19 21:01 Last Admin: 01/25/19 09:33 Dose: 2.5 mg Documented by: Ascorbic Acid (Vitamin C) 250 mg PO DAILY [facility] Stop: 07/26/19 09:01 Last Admin: 01/25/19 09:33 Dose: 250 mg Documented by: Bumetanide (Bumex) 1 mg PO DAILY [facility] Stop: 07/26/19 09:01 Last Admin: 01/25/19 09:33 Dose: 1 mg Documented by: Docusate Sodium (Colace) 100 mg PO DAILY [facility]; Protocol Stop: 07/26/19 09:01 Last Admin: 01/25/19 09:33 Dose: 100 mg Documented by: Ferrous Sulfate (Ferrous Sulfate) 325 mg PO DAILY [facility] Stop: 07/26/19 09:01 Last Admin: 01/25/19 09:33 Dose: 325 mg Documented by: Finasteride (Proscar) 2.5 mg PO HS [facility]; Protocol Stop: 07/25/19 21:01 Last Admin: 01/24/19 20:40 Dose: 2.5 mg Documented by: Gabapentin (Neurontin) 500 mg PO BID [facility] Stop: 07/25/19 22:46 Last Admin: 01/25/19 09:33 Dose: 500 mg Documented by: Hydralazine HCl (Hydralazine) 10 mg IVP Q6HR PRN PRN Reason: Hypertension Stop: 07/25/19 18:42 Last Admin: 01/23/19 21:43 Dose: 10 mg Documented by: Dopamine HCl/Dextrose (Dopamine Premix 400mg/250ml) 400 mg in 250 mls @ 7.978 mls/hr IVC .Q24H [facility]; Protocol Stop: 07/25/19 14:31 Ibuprofen (Motrin) 600 mg PO Q6H PRN; Protocol PRN Reason: Pain Stop: 07/25/19 22:42 Isosorbide Mononitrate (Imdur) 60 mg PO DAILY [facility] Stop: 07/26/19 09:01 Last Admin: 01/25/19 09:33 Dose: 60 mg Documented by: Levothyroxine Sodium (Synthroid) 125 mcg PO 0630 [facility] Stop: 07/26/19 06:31 Last Admin: 01/25/19 06:05 Dose: 125 mcg Documented by: Lisinopril (Zestril) 10 mg PO DAILY [facility]; Protocol Stop: 07/26/19 09:01 Last Admin: 01/25/19 09:33 Dose: 10 mg Documented by: Naloxone HCl (Narcan) 0.4 mg IVP Q2MPRN PRN PRN Reason: SEE COMMENTS Stop: 07/25/19 17:12 Ondansetron HCl (Zofran) 4 mg IVP Q6H PRN; Protocol PRN Reason: Nausea Stop: 07/25/19 22:51 Pharmacy Profile Note (Patient Taking Own Medication) 1 each PO DAILY [facility] Stop: 07/26/19 09:01 Last Admin: 01/25/19 09:34 Dose: Not Given Documented by: Potassium Chloride (Potassium Chloride) 10 meq PO DAILY [facility] Stop: 07/26/19 09:01 Last Admin: 01/25/19 09:33 Dose: 10 meq Documented by: Vitamin D (Vitamin D) 1,000 unit PO DAILY [facility] Stop: 07/26/19 09:01 Last Admin: 01/25/19 09:33 Dose: 1,000 unit Documented by: - Imaging and Cardiology Echo: report reviewed Consult Discharge Plan - Plan [facility]errals: [facility] [Primary Care Provider] - 02/04/19 2:45 pm
--- NOTE | 2019-01-25 19:06 | Electrocardiograph Report ---
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
[2019-01-25] MEDS: Finasteride 5 MG TABLET PO SCH (20:10)
--- NOTE | 2019-01-26 07:31 | Internal Med Progress Note ---
Hospitalist Progress Note - Encounter Date of Encounter: 01/26/19 Time of Encounter: 07:30 - Subjective Interval History: No acute events overnight. Pacemaker placement planned for sunday - Exam Vitals: Temp Pulse Resp BP Pulse Ox 98.1 F 37 16 138/64 95 01/26/19 06:57 01/26/19 06:57 01/26/19 06:57 01/26/19 06:57 01/26/19 06:57 Exam: General appearance: Present: A&O X 3, no acute distress Head exam: Present: normocephalic Respiratory exam: Present: CTAB. Absent: accessory muscle use, rales, rhonchi, wheezes Cardiovascular exam:Bradycardic GI/Abdominal exam: Soft, NT, ND, +BS Extremities exam: Absent: pedal edema Neurological exam: Present: alert, oriented X3, no focal deficits. Absent: altered - Assessment and Plan (1) Symptomatic bradycardia Current Visit: Yes Status: Acute Assessment and Plan: Patient comes in with dizziness with a heart rate of 37 with symptomatic bradycardia Cardiology consulted and had ER pace pacer pads at bedside and order a dopamine drip, to be started if he decompensates For now, will hold AV anna marie blocking agents. Monitor heart rate TSH came back wnl Cardiology plan for pacemaker placement on sunday Hold eliquis starting today (2) Hypothyroidism Current Visit: Yes Status: Acute Assessment and Plan: TSH WNL. Resume levothyroxine (3) (HFpEF) heart failure with preserved ejection fraction Current Visit: Yes Status: Chronic Assessment and Plan: No acute exacerbation. Resume home meds (4) CAD (coronary artery disease) Current Visit: Yes Status: Chronic Assessment and Plan: Resume home meds (5) Hypertension Current Visit: Yes Status: Chronic Assessment and Plan: Resume lisinopril and hydralazine prn (6) DVT prophylaxis Current Visit: Yes Status: Acute Assessment and Plan: On apixaban - Time Spent with Patient Total time spent is greater than 50% in coordination of care (as documented) at patient's floor/unit and/or counseling patient: Internal Medicine: Result - Labs CBC & Chem 7: 01/26/19 08:41 01/26/19 08:41 - Impressions Impressions Echocardiogram 01/24/19 16:01 Impressions: LVEF 55-60%. Moderate concentric left ventricular hypertrophy. Indeterminate diastolic function. Normal right ventricular structure and function. Mild aortic regurgitation. Mild tricuspid regurgitation. Mild pulmonary hypertension.Estimated RVSP is 36 mmHg. There is a small to moderate pericardial effusion present without echocardiographic evidence of tamponade Left Ventricular Wall Motion: Rest Echo Findings All wall segments showed normal motion. Findings: Pulmonary Artery * Pulmonary artery not well visualized. IVC * Normal IVC dimensions and inspiratory collapse. Pericardium * There is a small to moderate pericardial effusion present without echocardiographic evidence of tamponade * Aorta * Normally sized aortic root. Pulmonic Valve * Pulmonic valve not well visualized. Tricuspid Valve * Normal tricuspid valve structure. * Mild tricuspid regurgitation. * Mild pulmonary hypertension.Estimated RVSP is 36 mmHg. * Estimated RVSP is 36 mmHg. * Estimated RA pressure is 5 mmHg. Mitral Valve * Normal mitral valve structure. * No mitral stenosis. * Trace mitral regurgitation. Aortic Valve * Trileaflet aortic valve. * Normal aortic valve structure. * No aortic stenosis. * Mild aortic regurgitation. Interatrial Septum * Interatrial septum not well evaluated. Right Atrium * Mildly dilated right atrium. Left Atrium * Mildly dilated left atrium. Right Ventricle * Normal right ventricular structure and function. Left Ventricle * LVEF 55-60%. * Moderate concentric left ventricular hypertrophy. * Indeterminate diastolic function. * Atypical septal motion consistent with bundle branch block. * Normal LV chamber size. Study Quality * Technically adequate exam. ECG Findings * Atrial flutter with BBB. Consult Discharge Plan - Plan Referrals: [facility],PCP [Primary Care Provider] - 02/04/19 2:45 pm (2) Hypothyroidism Qualifiers: Qualified Code(s): E03.9 - Hypothyroidism, unspecified (3) (HFpEF) heart failure with preserved ejection fraction Qualifiers: Qualified Code(s): I50.32 - Chronic diastolic (congestive) heart failure (4) CAD (coronary artery disease) Qualifiers: Coronary Disease-Associated Artery/Lesion type: [place] artery [place] vs. transplanted heart: [place] heart Associated angina: without angina Qualified Code(s): I25.10 - Atherosclerotic heart disease of [place] coronary artery without angina pectoris (5) Hypertension Qualifiers: Hypertension type: essential hypertension Qualified Code(s): I10 - Essential (primary) hypertension
[2019-01-26 08:52] LABS: Basophils % 0.5 %; Eosinophils # 0.2 K/mcL (0.0-0.6); Eosinophils % 3.2 %; Hematocrit 33.4 % (37.5-50.1); Immature Granulocytes % 0.2 % (0-4); Lymphocytes # 1.8 K/mcL (0.6-4.6); Mean Corpuscular HGB Conc 32.9 g/dL (31.6-35.5); Mean Corpuscular Hemoglobin 31.1 pg (28.0-33.3); Mean Corpuscular Volume 94.4 fL (83.0-100.0); Monocytes # 0.6 K/mcL (0.0-1.3); Monocytes % 8.7 %; Neutrophils # 3.8 K/mcL (1.6-8.9); Platelet Count 136 K/mcL (140-400); Red Blood Count 3.54 M/mcL (4.19-5.50); Red Cell Distribution Width 14.1 % (11.5-14.5); Segmented Neutrophils % 59.4 %
[2019-01-26 09:12] LABS: Magnesium 1.9 mg/dL (1.6-2.6); Phosphorous 3.4 mg/dL (2.7-4.5)
[2019-01-26 09:13] LABS: Calcium 8.9 mg/dL (8.6-10.3); Potassium 3.8 mEq/L (3.5-5.1)
[2019-01-26] MEDS: Bumetanide 1 MG TABLET PO SCH (09:28)
[2019-01-26] MEDS: Lisinopril 20 MG TABLET PO SCH (09:28)
[2019-01-26] MEDS: Cholecalciferol (D-3) 1,000 UNIT TABLET PO SCH (09:28)
[2019-01-26] MEDS: Isosorbide MONOnitrate (24 HR) 60 MG TAB.ER.24H PO SCH (09:28)
[2019-01-26] MEDS: Ascorbic Acid 500 MG TABLET PO SCH (09:28)
[2019-01-26] MEDS: Gabapentin 100 MG CAPSULE PO SCH ×2 (09:28→20:00)
--- NOTE | 2019-01-26 09:49 | Cardiology Progress Note ---
Date of Encounter: 01/26/19 Time of Encounter: 09:00 Assessment and Plan (1) Symptomatic bradycardia Current Visit: Yes Status: Acute Per Cardiology: Remains Atrial flutter in the 30s on telemetry. Home medication Coreg 12.5 mg PO BID on hold. ECHO: Impressions: LVEF 55-60%. Moderate concentric left ventricular hypertrophy. Indeterminate diastolic function. Normal right ventricular structure and function. Mild aortic regurgitation. Mild tricuspid regurgitation. Mild pulmonary hypertension.Estimated RVSP is 36 mmHg. There is a small to moderate pericardial effusion present without echocardiographic evidence of tamponade Left Ventricular Wall Motion: Rest Echo Findings All wall segments showed normal motion. Clinically stable and normal mentation. Discussed and reviewed with Dr. Frantz Philippe, plan for pacemaker Sunday. Patient agreeable to proceed. We will hold Eliquis 2.5mg PO BID in preparation of procedure. Discussed with primary service. (2) CAD (coronary artery disease) Current Visit: Yes Status: Chronic Per Cardiology: Chest pain free. Troponins negative 2. Left heart catheterization December 2017: Impressions: There is severe three vessel coronary artery disease. The left ventricle is normal and has normal contractility EF 50% Patient had successful Drug-Eluting Stent placement in the distal RCA. There is a previous stent in Mid RCA with moderate in-stent stenosis that was intervened on. Patient had successful PTCA/Drug-Eluting Stent placement in the mid RCA. Patient had successful PTCA/Drug-Eluting Stent placement in the proximal RCA. Qualifiers: Coronary Disease-Associated Artery/Lesion type: [place] artery [place] vs. transplanted heart: [place] heart Associated angina: without angina Qualified Code(s): I25.10 - Atherosclerotic heart disease of [place] coronary artery wi thout angina pectoris (3) Atrial flutter Current Visit: Yes Status: Chronic Per Cardiology: Home beta lambert on hold. AC on hold now for pacer. Qualifiers: Atrial flutter type: unspecified Qualified Code(s): I48.92 - Unspecified atrial flutter (4) BRIAN (acute kidney injury) Current Visit: Yes Status: Acute Per Cardiology: Mild BRIAN noted today. Will hold Bumex. Avoid nephrotoxins. Consider neph rology consult if clinically appropriate. Remains on THOM inhibitor for now. Discussion w patient/family: The assessment and plan as outlined above was discussed with the patient and/or family members who expressed understanding and agreement. All questions were answered. Thank you for involving us in the care of your patient. Please call with any questions. Subjective Principal diagnosis: Aflutter SVR Interval history: Patient denies any new concerns or complaints. Remains agreeable for pacemaker on Sunday. Objective Vital Signs, Last 4 Hours Temp Pulse Resp BP Pulse Ox 01/26/19 06:57 98.1 F 37 16 138/64 95 General: Conversant, No Apparent Distress HEENT: Atraumatic, Normocephaly, Mucus Membranes Moist Neck: No JVD, Normal carotid pulses Cardiac: No Murmur, Other (Irregularly irregular) Lungs: Normal Breath Sounds, No Wheeze, Rales, Rhonchi Neuro: Alert and responsive, No focal deficits noted Abdomen: Soft, Non-Tender Skin: No rashes noted on visualized skin Musculoskeletal: No Chest Wall Tenderness Extremities: No Clubbing, No Cyanosis, No Edema, Normal Pulses Results 01/26/19 08:41 01/26/19 08:41 Lab Results Laboratory Tests 01/26/19 01/26/19 08:41 08:41 Hgb 11.0 L Hct 33.4 L Creatinine 1.63 H Est GFR (Non-Af Amer) 40 L Impressions Echocardiogram 01/24/19 16:01 Impressions: LVEF 55-60%. Moderate concentric left ventricular hypertrophy. Indeterminate diastolic function. Normal right ventricular structure and function. Mild aortic regurgitation. Mild tricuspid regurgitation. Mild pulmonary hypertension.Estimated RVSP is 36 mmHg. There is a small to moderate pericardial effusion present without echocardiographic evidence of tamponade Left Ventricular Wall Motion: Rest Echo Findings All wall segments showed normal motion. Findings: Pulmonary Artery * Pulmonary artery not well visualized. IVC * Normal IVC dimensions and inspiratory collapse. Pericardium * There is a small to moderate pericardial effusion present without echocardiographic evidence of tamponade * Aorta * Normally sized aortic root. Pulmonic Valve * Pulmonic valve not well visualized. Tricuspid Valve * Normal tricuspid valve structure. * Mild tricuspid regurgitation. * Mild pulmonary hypertension.Estimated RVSP is 36 mmHg. * Estimated RVSP is 36 mmHg. * Estimated RA pressure is 5 mmHg. Mitral Valve * Normal mitral valve structure. * No mitral stenosis. * Trace mitral regurgitation. Aortic Valve * Trileaflet aortic valve. * Normal aortic valve structure. * No aortic stenosis. * Mild aortic regurgitation. Interatrial Septum * Interatrial septum not well evaluated. Right Atrium * Mildly dilated right atrium. Left Atrium * Mildly dilated left atrium. Right Ventricle * Normal right ventricular structure and function. Left Ventricle * LVEF 55-60%. * Moderate concentric left ventricular hypertrophy. * Indeterminate diastolic function. * Atypical septal motion consistent with bundle branch block. * Normal LV chamber size. Study Quality * Technically adequate exam. ECG Findings * Atrial flutter with BBB. Active Medications Ascorbic Acid (Vitamin C) 250 mg PO DAILY [facility] Stop: 07/26/19 09:01 Last Admin: 01/26/19 09:28 Dose: 250 mg Documented by: Bumetanide (Bumex) 1 mg PO DAILY [facility] Stop: 07/26/19 09:01 Last Admin: 01/26/19 09:28 Dose: 1 mg Documented by: Docusate Sodium (Colace) 100 mg PO DAILY [facility]; Protocol Stop: 07/26/19 09:01 Last Admin: 01/26/19 09:28 Dose: 100 mg Documented by: Ferrous Sulfate (Ferrous Sulfate) 325 mg PO DAILY [facility] Stop: 07/26/19 09:01 Last Admin: 01/26/19 09:28 Dose: 325 mg Documented by: Finasteride (Proscar) 2.5 mg PO HS [facility]; Protocol Stop: 07/25/19 21:01 Last Admin: 01/25/19 20:10 Dose: 2.5 mg Documented by: Gabapentin (Neurontin) 500 mg PO BID [facility] Stop: 07/25/19 22:46 Last Admin: 01/26/19 09:28 Dose: 500 mg Documented by: Hydralazine HCl (Hydralazine) 10 mg IVP Q6HR PRN PRN Reason: Hypertension Stop: 07/25/19 18:42 Last Admin: 01/23/19 21:43 Dose: 10 mg Documented by: Ibuprofen (Motrin) 600 mg PO Q6H PRN; Protocol PRN Reason: Pain Stop: 07/25/19 22:42 Isosorbide Mononitrate (Imdur) 60 mg PO DAILY [facility] Stop: 07/26/19 09:01 Last Admin: 01/26/19 09:28 Dose: 60 mg Documented by: Levothyroxine Sodium (Synthroid) 125 mcg PO 0630 [facility] Stop: 07/26/19 06:31 Last Admin: 01/26/19 06:11 Dose: 125 mcg Documented by: Lisinopril (Zestril) 10 mg PO DAILY [facility]; Protocol Stop: 07/26/19 09:01 Last Admin: 01/26/19 09:28 Dose: 10 mg Documented by: Naloxone HCl (Narcan) 0.4 mg IVP Q2MPRN PRN PRN Reason: SEE COMMENTS Stop: 07/25/19 17:12 Ondansetron HCl (Zofran) 4 mg IVP Q6H PRN; Protocol PRN Reason: Nausea Stop: 07/25/19 22:51 Potassium Chloride (Potassium Chloride) 10 meq PO DAILY [facility] Stop: 07/26/19 09:01 Last Admin: 01/26/19 09:28 Dose: 10 meq Documented by: Vitamin D (Vitamin D) 1,000 unit PO DAILY [facility] Stop: 07/26/19 09:01 Last Admin: 01/26/19 09:28 Dose: 1,000 unit Documented by: - Imaging and Cardiology Echo: report reviewed Consult Discharge Plan - Plan Referrals: [facility] [Primary Care Provider] - 02/04/19 2:45 pm
[2019-01-26] MEDS: Finasteride 5 MG TABLET PO SCH (20:00)
--- NOTE | 2019-01-27 07:33 | Internal Med Progress Note ---
Hospitalist Progress Note - Encounter Date of Encounter: 01/27/19 Time of Encounter: 07:30 - Subjective Interval History: No acute events overnight - Exam Vitals: Temp Pulse Resp BP Pulse Ox 98.3 F 38 16 168/58 95 01/27/19 02:58 01/27/19 02:58 01/27/19 02:58 01/27/19 02:58 01/27/19 02:58 Exam: General appearance: Present: A&O X 3, no acute distress Head exam: Present: normocephalic Respiratory exam: Present: CTAB. Absent: accessory muscle use, rales, rhonchi, wheezes Cardiovascular exam:Bradycardic GI/Abdominal exam: Soft, NT, ND, +BS Extremities exam: Absent: pedal edema Neurological exam: Present: alert, oriented X3, no focal deficits. Absent: altered - Assessment and Plan (1) Symptomatic bradycardia Current Visit: Yes Status: Acute Assessment and Plan: Patient comes in with dizziness with a heart rate of 37 with symptomatic br adycardia Cardiology consulted and had ER pace pacer pads at bedside and order a dopamine drip, to be started if he decompensates For now, will hold AV anna marie blocking agents. Monitor heart rate TSH came back wnl Cardiology plan for pacemaker placement on sunday on hold (2) Hypothyroidism Current Visit: Yes Status: Acute Assessment and Plan: TSH WNL. Resume levothyroxine (3) (HFpEF) heart failure with preserved ejection fraction Current Visit: Yes Status: Chronic Assessment and Plan: No acute exacerbation. Resume home meds (4) CAD (coronary artery disease) Current Visit: Yes Status: Chronic Assessment and Plan: Resume home meds (5) Hypertension Current Visit: Yes Status: Chronic Assessment and Plan: Resume lisinopril and hydralazine prn (6) BRIAN (acute kidney injury) Current Visit: Yes Status: Acute Assessment and Plan: Likely secndary o overiduresis with BUmex. Will hydrate gently (7) DVT prophylaxis Current Visit: Yes Status: Acute Assessment and Plan: On apixaban - Time Spent with Patient Total time spent is greater than 50% in coordination of care (as documented) at patient's floor/unit and/or counseling patient: Internal Medicine: Result - Labs CBC & Chem 7: 01/26/19 08:41 01/27/19 08:02 Labs: Short CBC 01/26/19 Range/Units 08:41 WBC 6.3 (4.3-11.1) K/mcL Hgb 11.0 L (12.9-16.9) g/dL Hct 33.4 L (37.5-50.1) % Plt Count 136 L (140-400) K/mcL Neutrophils # 3.8 (1.6-8.9) K/mcL BMP 01/26/19 08:41 Sodium 140 Potassium 3.8 Chloride 108 H Carbon Dioxide 23 BUN 30 H Creatinine 1.63 H Glucose 186 H Calcium 8.9 Consult Discharge Plan - Plan Referrals: [facility] [Primary Care Provider] - 02/04/19 2:45 pm (2) Hypothyroidism Qualifiers: Qualified Code(s): E03.9 - Hypothyroidism, unspecified (3) (HFpEF) heart failure with preserved ejection fraction Qualifiers: Qualified Code(s): I50.32 - Chronic diastolic (congestive) heart failure (4) CAD (coronary artery disease) Qualifiers: Coronary Disease-Associated Artery/Lesion type: [place] artery [place] vs. transplanted heart: [place] heart Associated angina: without angina Qualified Code(s): I25.10 - Atherosclerotic heart disease of [place] coronary artery with out angina pectoris (5) Hypertension Qualifiers: Hypertension type: essential hypertension Qualified Code(s): I10 - Essential (primary) hypertension
[2019-01-27] MEDS: Gabapentin 100 MG CAPSULE PO SCH ×2 (07:56→20:43)
[2019-01-27] MEDS: Lisinopril 20 MG TABLET PO SCH (07:56)
[2019-01-27] MEDS: Cholecalciferol (D-3) 1,000 UNIT TABLET PO SCH (07:57)
[2019-01-27] MEDS: Isosorbide MONOnitrate (24 HR) 60 MG TAB.ER.24H PO SCH (07:57)
[2019-01-27] MEDS: Ascorbic Acid 500 MG TABLET PO SCH (07:57)
--- NOTE | 2019-01-27 08:39 | Cardiology Progress Note ---
Date of Encounter: 01/27/19 Time of Encounter: 08:15 Assessment and Plan (1) Symptomatic bradycardia Current Visit: Yes Status: Acute Per Cardiology: Remains Atrial flutter in the 30s on telemetry. Home medication Coreg 12.5 mg PO BID on hold. ECHO: Impressions: LVEF 55-60%. Moderate concentric left ventricular hypertrophy. Indeterminate diastolic function. Normal right ventricular structure and function. Mild aortic regurgitation. Mild tricuspid regurgitation. Mild pulmonary hypertension.Estimated RVSP is 36 mmHg. There is a small to moderate pericardial effusion present without echocardiographic evidence of tamponade Left Ventricular Wall Motion: Rest Echo Findings All wall segments showed normal motion. Clinically stable and normal mentation. Discussed and reviewed with Dr. Frantz Philippe, plan for pacemaker Sunday. Patient agreeable to proceed. Eliquis 2.5mg PO BID on hold in preparation of procedure. (2) CAD (coronary artery disease) Current Visit: Yes Status: Chronic Per Cardiology: Chest pain free. Troponins negative 2. Left heart catheterization December 2017: Impressions: There is severe three vessel coronary artery disease. The left ventricle is normal and has normal contractility EF 50% Patient had successful Drug-Eluting Stent placement in the distal RCA. There is a previous stent in Mid RCA with moderate in-stent stenosis that was intervened on. Patient had successful PTCA/Drug-Eluting Stent placement in the mid RCA. Patient had successful PTCA/Drug-Eluting Stent placement in the proximal RCA. Qualifiers: Coronary Disease-Associated Artery/Lesion type: [place] artery [place] vs. transplanted heart: [place] heart Associated angina: without angina Qualified Code(s): I25.10 - Atherosclerotic heart disease of [place] coronary artery without angina pectoris (3) Atrial flutter Current Visit: Yes Status: Chronic Per Cardiology: Home beta lambert on hold. AC on hold now for pacer. Qualifiers: Atrial flutter type: unspecified Qualified Code(s): I48.92 - Unspecified atrial flutter (4) BRIAN (acute kidney injury) Current Visit: Yes Status: Acute Per Cardiology: Mild BRIAN noted today. Will hold Bumex. Avoid nephrotoxins. Consider nephrology consult if clinically appropriate. Remains on THOM inhibitor for now. Discussion w patient/family: The assessment and plan as outlined above was discussed with the patient and/or family members who expressed understanding and agreement. All questions were answered. Thank you for involving us in the care of your patient. Please call with any questions. Subjective Principal diagnosis: Aflutter SVR Interval history: Patient denies any new concerns or complaints. Remains agreeable for pacemaker on Sunday. Objective Vital Signs, Last 4 Hours Temp Pulse Resp BP Pulse Ox 01/27/19 07:49 97.5 F L 40 6 167/62 94 General: Conversant, No Apparent Distress HEENT: Atraumatic, Normocephaly, Mucus Membranes Moist Neck: No JVD, Normal carotid pulses Cardiac: No Murmur, Other (Irregularly irregular) Lungs: Normal Breath Sounds, No Wheeze, Rales, Rhonchi Neuro: Alert and responsive, No focal deficits noted Abdomen: Soft, Non-Tender Skin: No rashes noted on visualized skin Musculoskeletal: No Chest Wall Tenderness Extremities: No Clubbing, No Cyanosis, No Edema, Normal Pulses Results 01/26/19 08:41 01/27/19 08:02 Lab Results Active Medications Ascorbic Acid (Vitamin C) 250 mg PO DAILY [facility] Stop: 07/26/19 09:01 Last Admin: 01/27/19 07:57 Dose: 250 mg Documented by: Docusate Sodium (Colace) 100 mg PO DAILY [facility]; Protocol Stop: 07/26/19 09:01 Last Admin: 01/27/19 07:57 Dose: 100 mg Documented by: Ferrous Sulfate (Ferrous Sulfate) 325 mg PO DAILY [facility] Stop: 07/26/19 09:01 Last Admin: 01/27/19 07:57 Dose: 325 mg Documented by: Finasteride (Proscar) 2.5 mg PO HS [facility]; Protocol Stop: 07/25/19 21:01 Last Admin: 01/26/19 20:00 Dose: 2.5 mg Documented by: Gabapentin (Neurontin) 500 mg PO BID [facility] Stop: 07/25/19 22:46 Last Admin: 01/27/19 07:56 Dose: 500 mg Documented by: Hydralazine HCl (Hydralazine) 10 mg IVP Q6HR PRN PRN Reason: Hypertension Stop: 07/25/19 18:42 Last Admin: 01/23/19 21:43 Dose: 10 mg Documented by: Clindamycin Phosphate/Dextrose (Cleocin Premix 900 Mg/50 Ml) 900 mg in 50 mls @ 100 mls/hr IVPB PREOP ONE Stop: 01/27/19 09:13 Ibuprofen (Motrin) 600 mg PO Q6H PRN; Protocol PRN Reason: Pain Stop: 07/25/19 22:42 Isosorbide Mononitrate (Imdur) 60 mg PO DAILY [facility] Stop: 07/26/19 09:01 Last Admin: 01/27/19 07:57 Dose: 60 mg Documented by: Levothyroxine Sodium (Synthroid) 125 mcg PO 0630 [facility] Stop: 07/26/19 06:31 Last Admin: 01/27/19 06:27 Dose: Not Given Documented by: Lisinopril (Zestril) 10 mg PO DAILY [facility]; Protocol Stop: 07/26/19 09:01 Last Admin: 01/27/19 07:56 Dose: 10 mg Documented by: Naloxone HCl (Narcan) 0.4 mg IVP Q2MPRN PRN PRN Reason: SEE COMMENTS Stop: 07/25/19 17:12 Ondansetron HCl (Zofran) 4 mg IVP Q6H PRN; Protocol PRN Reason: Nausea Stop: 07/25/19 22:51 Polyethylene Glycol (Miralax) 17 gm PO DAILY [facility] Stop: 07/29/19 09:01 Last Admin: 01/27/19 07:56 Dose: 17 gm Documented by: Potassium Chloride (Potassium Chloride) 10 meq PO DAILY [facility] Stop: 07/26/19 09:01 Last Admin: 01/27/19 07:57 Dose: 10 meq Documented by: Vitamin D (Vitamin D) 1,000 unit PO DAILY [facility] Stop: 07/26/19 09:01 Last Admin: 01/27/19 07:57 Dose: 1,000 unit Documented by: Consult Discharge Plan - Plan [facility]errals: [facility] [Primary Care Provider] - 02/04/19 2:45 pm
[2019-01-27 08:40] LABS: Phosphorous 3.4 mg/dL (2.7-4.5); Potassium 4.1 mEq/L (3.5-5.1)
[2019-01-27] MEDS ORDERED: Clindamycin 900 MG/50 ML 900 MG/50 ML IV.SOLN IVPB ONE (08:44)
[2019-01-27] MEDS: 0.9 % Sodium Chloride 1,000 ML IVC SCH (11:00)
[2019-01-27] MEDS: Finasteride 5 MG TABLET PO SCH (20:42)
[2019-01-28] MEDS: 0.9 % Sodium Chloride 1,000 ML IVC SCH (01:40)
[2019-01-28] MEDS ORDERED: Clindamycin 900 MG/50 ML 900 MG/50 ML IV.SOLN IVPB ONE (06:00)
--- NOTE | 2019-01-28 07:28 | Internal Med Progress Note ---
Hospitalist Progress Note - Encounter Date of Encounter: 01/28/19 Time of Encounter: 07:30 - Subjective Interval History: No acute events overnight. Pacemaker placement scheduled for today - Exam Vitals: Temp Pulse Resp BP Pulse Ox 98.2 F 37 18 113/59 96 01/28/19 07:01 01/28/19 07:01 01/28/19 07:01 01/28/19 07:01 01/28/19 07:01 Exam: General appearance: Present: A&O X 3, no acute distress Head exam: Present: normocephalic Respiratory exam: Present: CTAB. Absent: accessory muscle use, rales, rhonchi, wheezes Cardiovascular exam:Bradycardic GI/Abdominal exam: Soft, NT, ND, +BS Extremities exam: Absent: pedal edema Neurological exam: Present: alert, oriented X3, no focal deficits. Absent: altered - Assessment and Plan (1) Symptomatic bradycardia Current Visit: Yes Status: Acute Assessment and Plan: Patient comes in with dizziness with a heart rate of 37 with symptomatic bradycardia Cardiology consulted and had ER pace pacer pads at bedside and order a dopamine drip, to be started if he decompensates For now, will hold AV anna marie blocking agents. Monitor heart rate TSH came back wnl Cardiology plan for pacemaker placement today Eliquis on hold (2) Hypothyroidism Current Visit: Yes Status: Acute Assessment and Plan: TSH WNL. Resume levothyroxine (3) (HFpEF) heart failure with preserved ejection fraction Current Visit: Yes Status: Chronic Assessment and Plan: No acute exacerbation. Resume home meds (4) CAD (coronary artery disease) Current Visit: Yes Status: Chronic Assessment and Plan: Resume home meds (5) Hypertension Current Visit: Yes Status: Chronic Assessment and Plan: Resume lisinopril and hydralazine prn (6) BRIAN (acute kidney injury) Current Visit: Yes Status: Acute Assessment and Plan: Likely secndary o overiduresis with BUmex. Will hydrate gently (7) DVT prophylaxis Current Visit: Yes Status: Acute Assessment and Plan: On apixaban - Time Spent with Patient Total time spent is greater than 50% in coordination of care (as documented) at patient's floor/unit and/or counseling patient: Internal Medicine: Result - Labs CBC & Chem 7: 01/26/19 08:41 01/28/19 08:22 Labs: [facility] 01/27/19 08:02 Sodium 141 Potassium 4.1 Chloride 108 H Carbon Dioxide 23 BUN 34 H Creatinine 1.77 H Glucose 111 H Calcium 9.0 Consult Discharge Plan - Plan Referrals: [facility] [Primary Care Provider] - 02/04/19 2:45 pm __ (2) Hypothyroidism Qualifiers: Qualified Code(s): E03.9 - Hypothyroidism, unspecified (3) (HFpEF) heart failure with preserved ejection fraction Qualifiers: Qualified Code(s): I50.32 - Chronic diastolic (congestive) heart failure (4) CAD (coronary artery disease) Qualifiers: Coronary Disease-Associated Artery/Lesion type: [place] artery [place] vs. transplanted heart: [place] heart Associated angina: without angina Qualified Code(s): I25.10 - Atherosclerotic heart disease of [place] coronary artery without angina pectoris (5) Hypertension Qualifiers: Hypertension type: essential hypertension Qualified Code(s): I10 - Essential (primary) hypertension
[2019-01-28] MEDS: Ascorbic Acid 500 MG TABLET PO SCH (08:33)
[2019-01-28] MEDS: Gabapentin 100 MG CAPSULE PO SCH ×2 (08:33→20:37)
[2019-01-28] MEDS: Lisinopril 20 MG TABLET PO SCH (08:33)
[2019-01-28] MEDS: Cholecalciferol (D-3) 1,000 UNIT TABLET PO SCH (08:33)
[2019-01-28] MEDS: Isosorbide MONOnitrate (24 HR) 60 MG TAB.ER.24H PO SCH (08:33)
--- NOTE | 2019-01-28 09:06 | Event Note ---
Date of Encounter: 01/28/19 Time of Encounter: 09:00 - Cardiology Event Note Clinically remained stable. Denies any new concerns or complaints. Pending pacemaker today. Anticoagulation remains on hold.
[2019-01-28 09:09] LABS: Magnesium 2.1 mg/dL (1.6-2.6); Phosphorous 3.3 mg/dL (2.7-4.5); Potassium 4.1 mEq/L (3.5-5.1)
--- NOTE | 2019-01-28 14:36 | Pre-Sedation Evaluation ---
Pre-sedation evaluation - Pre-sedation checklist Procedure: left heart cath Recent Vitals: Last Vital Signs Temp 97.6 F 01/28/19 11:04 Pulse 38 01/28/19 11:04 Resp 18 01/28/19 11:04 BP 166/65 01/28/19 11:04 Pulse Ox 93 01/28/19 11:04 H&P (including ROS) documented in medical record: Yes Previous reaction to sedatives/anesthetics: No Dietary Status: No solid food in preceding 4 hrs and no liquid in preceding 2 hrs Airway Assessment: Patient can open mouth completely, TMJ function normal, Micrognathia (under-bite, receding chin) absent Dentition: full dentition ASA Classification *see protocol: CLASS II-Mild systemic disease Plan of Care: Pt appropriate candidate for procedure/moderate/conscious sedation, Risks/benefits of procedure/sedation discussed w/ patient/family
[2019-01-28] MEDS ORDERED: Naloxone 0.4 MG/ML INJ ONE (14:39)
[2019-01-28] MEDS ORDERED: *HR* FentaNYL (PF) 250 MCG/5 ML VIAL ONE (14:39)
[2019-01-28] MEDS ORDERED: *HR* Midazolam HCl 5 MG/5 ML VIAL IVP ONE (14:39)
[2019-01-28] MEDS ORDERED: Clindamycin 600 MG/50 ML 1,200 MG/100 ML IV.SOLN IVPB ONE (14:40)
[2019-01-28] MEDS ORDERED: 0.9 % Sodium Chloride 500 ML ONE (14:40)
[2019-01-28] MEDS ORDERED: Isovue-300 150 ML INFUS..BTL ONE (14:40)
[2019-01-28] MEDS ORDERED: 0.9 % Sodium Chloride 1,000 ML ONE (14:51)
[2019-01-28] MEDS ORDERED: Acetaminophen 325 MG TABLET PO PRN (16:26)
[2019-01-28] MEDS ORDERED: *HR* OxyCODONE Immed Rel 5 MG TABLET PO PRN (16:26)
[2019-01-28] MEDS ORDERED: Clindamycin 900 MG/50 ML 900 MG/50 ML IV.SOLN IVPB SCH (18:00)
[2019-01-28] MEDS: Finasteride 5 MG TABLET PO SCH (20:37)
[2019-01-29] MEDS: Cholecalciferol (D-3) 1,000 UNIT TABLET PO SCH (09:29)
[2019-01-29] MEDS: Isosorbide MONOnitrate (24 HR) 60 MG TAB.ER.24H PO SCH (09:29)
[2019-01-29] MEDS: Lisinopril 20 MG TABLET PO SCH (09:30)
[2019-01-29] MEDS: Ascorbic Acid 500 MG TABLET PO SCH (09:30)
[2019-01-29] MEDS: Gabapentin 100 MG CAPSULE PO SCH (09:31)
[2019-01-29 10:26] LABS: Calcium 9.4 mg/dL (8.6-10.3); Magnesium 2.2 mg/dL (1.6-2.6); Potassium 4.6 mEq/L (3.5-5.1)
--- NOTE | 2019-01-29 10:44 | Cardiology Progress Note ---
Date of Encounter: 01/29/19 Time of Encounter: 09:30 Assessment and Plan (1) Symptomatic bradycardia Current Visit: Yes Status: Acute Per Cardiology: -Admitted with symptomatic bradycardia. -S/p Pacemaker yesterday. -Steri-strips clean, dry, intact. -Chest x-ray post device and this am without pneumothorax. -Device check normal functioning. -Post device management education reviewed with pateint, states understanding. -Per , hold eliquis for one week post procedure. -will add back BB. -Cardiology will sign off, will arrange outpatient follow up. (2) CAD (coronary artery disease) Current Visit: Yes Status: Chronic Per Cardiology: -Chest pain free. Troponins negative 2. -Left heart catheterization December 2017: Impressions: There is severe three vessel coronary artery disease. The left ventricle is normal and has normal contractility EF 50% Patient had successful Drug-Eluting Stent placement in the distal RCA. There is a previous stent in Mid RCA with moderate in-stent stenosis that was intervened on. Patient had successful PTCA/Drug-Eluting Stent placement in the mid RCA. Patient had successful PTCA/Drug-Eluting Stent placement in the proximal RCA. -ON BB. Not on asa due to allergy. -Will resume statin. Continue current medical therapy. Qualifiers: Coronary Disease-Associated Artery/Lesion type: [place] artery [place] vs. transplanted heart: [place] heart Associated angina: without angina Qualified Code(s): I25.10 - Atherosclerotic heart disease of [place] coronary artery without angina pectoris (3) Atrial flutter Current Visit: Yes Status: Chronic Per Cardiology: -Will resume BB. -Resume AC in one week post pacemaker. Qualifiers: Atrial flutter type: unspecified Qualified Code(s): I48.92 - Unspecified atrial flutter Discussion w patient/family: The assessment and plan as outlined above was discussed with the patient who expressed understanding and agreement. All questions were answered. Thank you for involving us in the care of your patient. Please call with any questions. Discussed and reviewed with Dr.John Philippe. Subjective Principal diagnosis: Aflutter SVR Interval history: Patient denies complaints today. States he is anxious to go home. Objective Vital Signs, Last 4 Hours Temp Pulse Resp BP 01/29/19 09:30 66 01/29/19 07:20 97.8 F 67 18 158/72 General: Conversant, No Apparent Distress HEENT: Atraumatic, Normocephaly, Mucus Membranes Moist Neck: No JVD, Normal carotid pulses Cardiac: Normal S1 and S2, No Murmur, Other (Irregularly irregular) Lungs: Normal Breath Sounds, No Wheeze, Rales, Rhonchi Neuro: Alert and responsive, No focal deficits noted Abdomen: Soft, Non-Tender Skin: No rashes noted on visualized skin Musculoskeletal: No Chest Wall Tenderness, Other (Left chest wall steri-strips clean, dry, intact) Extremities: No Clubbing, No Cyanosis, No Edema, Normal Pulses Results 01/26/19 08:41 01/29/19 09:43 Lab Results Impressions Chest X-Ray 01/28/19 07:21 IMPRESSION: Active Medications Acetaminophen (Tylenol) 650 mg PO Q4HR PRN PRN Reason: Mild Pain Stop: 07/30/19 16:27 Ascorbic Acid (Vitamin C) 250 mg PO DAILY [facility] Stop: 07/26/19 09:01 Last Admin: 01/29/19 09:30 Dose: 250 mg Documented by: Carvedilol (Coreg) 3.125 mg PO BIDWM [facility]; Protocol Stop: 07/31/19 08:28 Last Admin: 01/29/19 09:30 Dose: 3.125 mg Documented by: Docusate Sodium (Colace) 100 mg PO DAILY [facility]; Protocol Stop: 07/26/19 09:01 Last Admin: 01/29/19 09:30 Dose: 100 mg Documented by: Ferrous Sulfate (Ferrous Sulfate) 325 mg PO DAILY [facility] Stop: 07/26/19 09:01 Last Admin: 01/29/19 09:31 Dose: 325 mg Documented by: Finasteride (Proscar) 2.5 mg PO HS [facility]; Protocol Stop: 07/25/19 21:01 Last Admin: 01/28/19 20:37 Dose: 2.5 mg Documented by: Gabapentin (Neurontin) 500 mg PO BID [facility] Stop: 07/25/19 22:46 Last Admin: 01/29/19 09:31 Dose: 500 mg Documented by: Hydralazine HCl (Hydralazine) 10 mg IVP Q6HR PRN PRN Reason: Hypertension Stop: 07/25/19 18:42 Last Admin: 01/27/19 20:43 Dose: 10 mg Documented by: Ibuprofen (Motrin) 600 mg PO Q6H PRN; Protocol PRN Reason: Pain Stop: 07/25/19 22:42 Isosorbide Mononitrate (Imdur) 60 mg PO DAILY [facility] Stop: 07/26/19 09:01 Last Admin: 01/29/19 09:29 Dose: 60 mg Documented by: Levothyroxine Sodium (Synthroid) 125 mcg PO 0630 [facility] Stop: 07/26/19 06:31 Last Admin: 01/29/19 07:09 Dose: 125 mcg Documented by: Lisinopril (Zestril) 10 mg PO DAILY [facility]; Protocol Stop: 07/26/19 09:01 Last Admin: 01/29/19 09:30 Dose: 10 mg Documented by: Naloxone HCl (Narcan) 0.4 mg IVP Q2MPRN PRN PRN Reason: SEE COMMENTS Stop: 07/25/19 17:12 Ondansetron HCl (Zofran) 4 mg IVP Q6H PRN; Protocol PRN Reason: Nausea Stop: 07/25/19 22:51 Oxycodone HCl (Roxicodone) 5 mg PO Q4HR PRN; Protocol PRN Reason: Severe Pain Stop: 07/30/19 16:27 Polyethylene Glycol (Miralax) 17 gm PO DAILY [facility] Stop: 07/29/19 09:01 Last Admin: 01/29/19 09:32 Dose: 17 gm Documented by: Potassium Chloride (Potassium Chloride) 10 meq PO DAILY [facility] Stop: 07/26/19 09:01 Last Admin: 01/29/19 09:29 Dose: 10 meq Documented by: Vitamin D (Vitamin D) 1,000 unit PO DAILY [facility] Stop: 07/26/19 09:01 Last Admin: 01/29/19 09:29 Dose: 1,000 unit Documented by: 1. Decreased right basilar consolidation and right pleural effusion compared with prior exam. 2. Stable minimal focal density medial lower left lung typical of atelectasis or scar. 3. Calcific atherosclerosis aorta. 4. Cardiomegaly. D/ / Denzel Solis / Denzel Solis Interpreting Provider: Denzel Solis Fluoroscopy 01/28/19 15:23 IMPRESSION: Intraprocedural fluoroscopic spot images as above. See separate procedure report for more information. D/ / Conor Loving MD / Conor Loving MD Interpreting Provider: Conor Loving MD Chest X-Ray 01/28/19 16:27 IMPRESSION: Interval placement of pacemaker with no pneumothorax. Edema and right-sided pleural effusion are present. D/ / Conor Loving MD / Conor Loving MD Interpreting Provider: Conor Loving MD Chest X-Ray 01/29/19 06:00 IMPRESSION: 1. Placement of a left-sided cardiac device. No evidence of a pneumothorax. 2. Bilateral pleural effusions, right side greater than left, with associated bibasilar atelectasis. D/ / 01/29/2019 08:45:00 Adam Sanchez MD / [place] Interpreting Provider: Adam Sanchez MD Laboratory Tests 01/29/19 09:43 Creatinine 1.57 H - Imaging and Cardiology Chest Xray: report reviewed Echo: report reviewed - EKG Interpretation EKG results cardiology: other (Telemetry reviewed with average HR previous 12 hours noted to be 62, a.fib with intermittent paced rhythm.) Consult Discharge Plan - Plan [facility] Provider[facility] - 02/04/19 2:45 pm
--- NOTE | 2019-01-29 12:06 | Discharge Summary ---
- NOTES TO OUTPATIENT PROVIDER Notes to Outpatient Provider: Have a repeat BMP within a week of hospital discharge. Creat at dc 1.57. Orders not resulted at time of discharge: Pending orders 01/28/19 15:23 XR chest 1V [XR] Routine 01/30/19 04:00 Basic Metabolic Panel AM 0400 Magnesium AM 0400 Phosphorous AM 0400 01/31/19 04:00 Basic Metabolic Panel AM 0400 Magnesium AM 0400 Phosphorous AM 0400 02/01/19 04:00 Basic Metabolic Panel AM 0400 Magnesium AM 0400 Phosphorous AM 0400 Date of Encounter: 01/29/19 Time of Encounter: 12:05 - Discharge Diagnosis (1) CAD (coronary artery disease) Priority: Secondary Status: Chronic Qualifiers: Coronary Disease-Associated Artery/Lesion type: [place] artery [place] vs. transplanted heart: [place] heart Associated angina: without angina Qualified Code(s): I25.10 - Atherosclerotic heart disease of [place] coronary artery without angina pectoris (2) Hypertension Priority: Secondary Status: Chronic Qualifiers: Hypertension type: essential hypertension Qualified Code(s): I10 - Essential (primary) hypertension (3) (HFpEF) heart failure with preserved ejection fraction Priority: Secondary Status: Chronic Qualifiers: Qualified Code(s): I50.32 - Chronic diastolic (congestive) heart failure (4) Symptomatic bradycardia Priority: Primary Status: Acute (5) Hypothyroidism Priority: Secondary Status: Chronic Qualifiers: Qualified Code(s): E03.9 - Hypothyroidism, unspecified (6) DVT prophylaxis Priority: Secondary Status: Acute (7) BRIAN (acute kidney injury) Priority: Secondary Status: Acute Hospital course: Mr. Gipson is a 88 year old male pmh of atrial fibrillation, cardiomyopathy, diabetes, CHF, hypertension presenting with complaints of light headedness for a couple of days. Patient has had symptomatic bradycardia in the past and says he was supposed to get a pacemaker but left AMA because the procedure wasn't done on time. During this admission his HR was found to be in the 30s. Patient admitted to the hospital due to Symptomatic bradycardia. cardiology consulted and patient underwent PM INSERTION DUAL LEADS. Post pacemaker insertion cardiology recommended to resume his home medications. Recommended to follow up with his pcp within a week to have a repeat BMP to monitor his kidney function. Recommended to follow up with cardiology within a week of hospital discharge. Patient clinically stable to be discharged. Indications - HOLD apixaban for a week. until 02/05/19. - Time Spent with Patient Total time spent providing and/or coordinating discharge services: Time spent: Greater than 30 minutes (35) - Discharge Medications Prescriptions: New Carvedilol [Coreg] 3.125 mg PO BIDWM 30 Days #60 tablet Continued Finasteride [Proscar] 2.5 mg PO HS Cholecalciferol (D-3) [Vitamin D] 1,000 unit PO DAILY Docusate [Colace] 100 mg PO DAILY Midodrine [ProAmatine] 2.5 mg PO 0800,1200,1700 Ascorbic Acid [Vitamin C] 250 mg PO DAILY Metformin HCl [Glucophage] 1,000 mg PO BID Vitamin A 10,000 unit PO DAILY Bumetanide [Bumex] 1 mg PO DAILY #30 tablet Isosorbide MONOnitrate (24 HR) [Imdur] 60 mg PO DAILY #30 tab.er.24h Potassium Chloride 10 meq PO DAILY #30 tab.er.prt Levothyroxine [Synthroid] 125 m[place] PO 0630 Ferrous Sulfate 325 mg PO DAILY #30 tablet Lisinopril [Zestril] 10 mg PO DAILY 365 Days tablet Discontinued Amiodarone [Cordarone] 100 mg PO DAILY Apixaban [Eliquis] 2.5 mg PO BID Carvedilol 12.5 mg PO BID #60 tab Home Medications: Finasteride [Proscar] 2.5 mg PO HS 06/08/15 [History] Cholecalciferol (D-3) [Vitamin D] 1,000 unit PO DAILY 12/23/16 [History] Bumetanide [Bumex] 1 mg PO DAILY #30 tablet 03/29/18 [Rx] Isosorbide MONOnitrate (24 HR) [Imdur] 60 mg PO DAILY #30 tab.er.24h 03/29/18 [Rx] Potassium Chloride 10 meq PO DAILY #30 tab.er.prt 03/29/18 [Rx] Levothyroxine [Synthroid] 125 mcg PO 0630 05/20/18 [History] Ferrous Sulfate 325 mg PO DAILY #30 tablet 08/22/18 [Rx] Lisinopril [Zestril] 10 mg PO DAILY 365 Days tablet 08/22/18 [Rx] Docusate [Colace] 100 mg PO DAILY 11/09/18 [History] Midodrine [ProAmatine] 2.5 mg PO 0800,1200,1700 11/09/18 [History] Ascorbic Acid [Vitamin C] 250 mg PO DAILY 01/23/19 [History] Metformin HCl [Glucophage] 1,000 mg PO BID 01/23/19 [History] Vitamin A 10,000 unit PO DAILY 01/23/19 [History] Carvedilol [Coreg] 3.125 mg PO BIDWM 30 Days #60 tablet 01/29/19 [Rx] Allergies/Adverse Reactions: Allergy/AdvReac Type Severity Reaction Status Date / Time aspirin [ASA] Allergy See Verified 01/23/19 13:15 Comments dipyridamole Allergy See Verified 11/09/18 14:04 Comments Penicillins [PCN] Allergy Difficulty Verified 11/09/18 14:04 Breathing rivaroxaban [From Xarelto] Allergy See Verified 11/09/18 14:04 Comments Date of admission: 01/23/19 19:31 [facility] care [facility] Consults: 01/23/19 14:43 Consult to Cardiology [CONS] Stat Comment: Consulting Provider: Cardiology Amy Reason for Consult: Patient with history of AFib presents with several days of bradycardia in 30s, mildly symptomatic with lightheadedness, otherwise hemodynamically stable Time Notified: 14:45 Call Completed: Yes - Constitutional Vitals: Temp Pulse Resp BP Pulse Ox 98.3 F 60 18 171/77 92 01/29/19 11:24 01/29/19 11:24 01/29/19 11:24 01/29/19 11:24 01/29/19 04:15 Exam: Vitals: Reviewed General: Alert and oriented x4. In no distress HEENT: EOM, pupils equal, round and reactive. Cardiovascular: RRR, normal S1 & S2, no rubs, murmurs or gallops. Lungs: CTA b/l, no wheezes or crackles. Abdomen: Soft, non-tender, no rigidity. Extremities: No edema Neurological: No focal neurological deficits Rest of the physical exam is non contributory - Patient Status Disposition: Home Health Service Condition: Fair Functional capacity at discharge: independent ambulation Overall status at discharge: patient is progressing back to baseline - Discharge Instructions Instructions: Pacemaker (DC), Pacemaker (GEN), Bradycardia (DC) Follow Up With: Justin Mattson CHAR PULLER [Advanced Practice Nurse] - (Cardiology will call with an appointment. If you do not hear from them please give them a call for a follow up appointment) [facility] [Primary Care Provider] - 02/04/19 2:45 pm Additional Instructions: PLEASE RESUME ELIQUIS IN 1 WEEK (02-05-19). ACTIVITY: Moderate activity for the next 7 days. No lifting more than 5 pounds (gallon of milk) for 4-6 weeks. Avoid lifting your arm on the same side as the device for 4 weeks. BATHING /SHOWERING: Do not remove the large bandage over the site for 2 days. Do not allow the device to get wet for 7 days. You may bathe/shower, but do not use soap and water on the site. When bathing, keep the site dry by covering with Saran wrap or a towel. After 7 days you may get site wet. No scrubbing site. Pat try. WOUND CARE: The white steri-strips will start to peel away and come off after 14 days, or your doctor will remove them after [address] into or on top of the incision. Do not use cotton swabs. Do not use any antibiotic ointment or Vitamin E on the site. REMINDERS: You may use electrical devices, such as, microwaves, hair dryers, electric razors, electric blankets, etc. as long as they are in good condition and kept 6-8 inches away from the device. It is recommended to use cell phones on the opposite side of your device. Notify security personnel at the airport that you have a device before you go through airport security screening. When at places with security monitors, such as a grocery store, do not linger near these monitors. It is fine to walk past them in a normal manner. Refer to your owners manual for more specific directions. CARRY YOUR PACEMAKER/ICD CARD WITH YOU AT ALL TIMES Return to work as instructed per physician Resume driving as instructed per physician Keep all scheduled follow up appointments Resume medications as instructed Contact [facility] ( ) if: You develop excessive bleeding from insertion or wound site not controlled by applying pressure You develop a fever greater than 101 degrees Fahrenheit Your incision becomes reddened at or around the site Your incision develops yellowish or greenish drainage or development of white pimple-like bumps You experience excessive pain You develop swelling in your ankles You experience muscle switching You develop excessive hiccupping If you experience chest pain, shortness of breath, dizziness, or extreme tiredness, stop the activity and rest. Please notify [facility] office if you experience any of these symptoms and they are not relieved by rest please call 911! - Diet and Activity Activity: resume usual activities as tolerated Diet: low salt diet
--- NOTE | 2019-01-29 12:15 | Physician Discharge Referral ---
Home Health/Hosp Referral Info Transfer to: Home Health - Diagnosis (1) CAD (coronary artery disease) Priority: Secondary Status: Chronic (2) Hypertension Priority: Secondary Status: Chronic (3) (HFpEF) heart failure with preserved ejection fraction Priority: Secondary Status: Chronic (4) Symptomatic bradycardia Priority: Primary Status: Acute (5) Hypothyroidism Priority: Secondary Status: Chronic (6) DVT prophylaxis Priority: Secondary Status: Acute (7) BRIAN (acute kidney injury) Priority: Secondary Status: Acute - Respiratory Orders None Smoking Cessation: Smoking cessation has been advised. For more information, call the [place] Tobacco Quit Line at 3-848-EOMX-NOW. - Diet/Nutrition Diet/Nutrition Orders: Regular - Activity Activity Orders: Ambulate - Services Needed Following services are medically necessary services: Nursing, Home Health Aide - Transfer Medications Home Medications: Finasteride [Proscar] 2.5 mg PO HS 06/08/15 [History] Cholecalciferol (D-3) [Vitamin D] 1,000 unit PO DAILY 12/23/16 [History] Bumetanide [Bumex] 1 mg PO DAILY #30 tablet 03/29/18 [Rx] Isosorbide MONOnitrate (24 HR) [Imdur] 60 mg PO DAILY #30 tab.er.24h 03/29/18 [Rx] Potassium Chloride 10 meq PO DAILY #30 tab.er.prt 03/29/18 [Rx] Levothyroxine [Synthroid] 125 mcg PO 0630 05/20/18 [History] Apixaban [Eliquis] 2.5 mg PO BID 08/15/18 [History] Carvedilol 12.5 mg PO BID #60 tab 08/22/18 [Rx] Ferrous Sulfate 325 mg PO DAILY #30 tablet 08/22/18 [Rx] Lisinopril [Zestril] 10 mg PO DAILY 365 Days tablet 08/22/18 [Rx] Docusate [Colace] 100 mg PO DAILY 11/09/18 [History] Midodrine [ProAmatine] 2.5 mg PO 0800,1200,1700 11/09/18 [History] Amiodarone [Cordarone] 100 mg PO DAILY 01/23/19 [History] Ascorbic Acid [Vitamin C] 250 mg PO DAILY 01/23/19 [History] Metformin HCl [Glucophage] 1,000 mg PO BID 01/23/19 [History] Vitamin A 10,000 unit PO DAILY 01/23/19 [History] Allergies/Adverse Reactions: Allergy/AdvReac Type Severity Reaction Status Date / Time aspirin [ASA] Allergy See Verified 01/23/19 13:15 Comments dipyridamole Allergy See Verified 11/09/18 14:04 Comments Penicillins [PCN] Allergy Difficulty Verified 11/09/18 14:04 Breathing rivaroxaban [From Xarelto] Allergy See Verified 11/09/18 14:04 Comments Certification: Further, I certify that my clinical findings support that this patient is homebound (i.e. absences from home require considerable and taxing effort and are for medical reasons or scientologist services or infrequently or short duration when for other reasons) because: Homebound Reason: Patient requires assistance of a person or device to safely leave home Attestation: My signature below is to certify that this patient is under my care and that I, or nurse practitioner, or a physician's statistical assistant working with me, has a [id number] encounter with this patient.
[2019-01-29 14:28] VITALS: BP 143/84
== END 2019-01-29 14:06 | disposition home health service (06) | DRG 242 ==
LOC: EMEROOARM 12:12 → 2NNU 19:31
PROVIDERS: ADMIT Internal Medicine Nephrology; ATTEND Internal Medicine Nephrology